=== PATIENT | female | born 1980 | race Caucasian/White ===

== ENCOUNTER 2016-06-05 10:23 | Emergency (ER) ==
[2016-06-05 10:27] VITALS: BP 139/101; TEMP 98.7; BMI 31.8
--- NOTE | 2016-06-05 10:41 | ED.PDOC ---
General ED Provider: Dr. AGGIE PATEL Chief Complaint: Abscess Stated Complaint: abscess Time Seen by Physician: 10:30 Mode of Arrival: Walk-In Information Source: Patient Exam Limitations: No limitations Primary Care Provider[facility] Nursing and Triage Documentation Reviewed and Agree: Yes Skin Complaint Exam - Skin/Soft Tissue Complaint/Exam Symptoms Are: Still present Timing: Constant Initial Severity: Moderate Current Severity: Moderate Character: Reports: Swelling, Raised, Painful Aggravating: Reports: None Alleviating: Reports: None Associated Signs and Symptoms: Denies: Fever, Chills, Itching, Drainage, Bruising, Tenderness, Red streaks, Joint swelling Related History: Reports: Similar episode Related Surgical History: Reports: None Recent Exposure to Others w/Similar Symptoms: No Skin Findings: Present: Pustules Differential Diagnoses: Abscess Review of Systems - Review Of Systems Constitutional: Reports: No symptoms Eyes: Reports: No symptoms Ears, Nose, Mouth, Throat: Reports: No symptoms Respiratory: Reports: No symptoms Cardiac: Reports: No symptoms GI: Reports: No symptoms : Reports: No symptoms Musculoskeletal: Reports: No symptoms Skin: Reports: Other (abscess see photos) Neurological: Reports: No symptoms Endocrine: Reports: No symptoms Hematologic/Lymphatic: Reports: No symptoms All Other Systems: Reviewed and Negative Past Medical History - Past Medical History Previously Healthy: Yes Endocrine: Reports: DM 1, Dyslipidemia Cardiovascular: Reports: None Respiratory: Reports: None Hematological: Reports: None Gastrointestinal: Reports: None Genitourinary: Reports: None Neuro/Psych: Reports: None Musculoskeletal: Reports: None Cancer: Reports: None Last Menstrual Period: due any time - Surgical History General Surgical History: Reports: None, (RECONSTRUCTIVE TO C- SECTION X1) - Family History Family History: Reports: None - Social History Smoking Status: Never smoker Hx Substance Use: No Alcohol Screening: Occasionally Physical Exam - Physical Exam Appearance: Well-appearing, No pain distress, Well-nourished Eyes: SCOT, EOMI, Conjunctiva clear ENT: Ears normal, Nose normal, Oropharynx normal Respiratory: Airway patent, Breath sounds clear, Breath sounds equal, Respirations nonlabored Cardiovascular: RRR, Pulses normal, No rub, No murmur GI/: Soft, Nontender, No masses, Bowel sounds normal, No Organomegaly Musculoskeletal: Normal strength, ROM intact, No edema, No calf tenderness Skin: Warm, Dry (abscess 2cm see photos) Neurological: Sensation intact, Motor intact, Reflexes intact, Cranial nerves intact, Alert, Oriented Psychiatric: Affect appropriate, Mood appropriate Critical Care Note - Critical Care Note Total Time (mins): 0 Course - Course Vital Signs: Temp Pulse Resp BP Pulse Ox 06/05/16 10:24 98.7 F 101 H 16 139/101 H 98 Departure - Departure Time of Disposition: 10:40 (with nba at bedside discussedI/D PT REFUSED SHE WAS ABLE TO UNDERSTAND THE PROCEDURE AND DECLINED ) Disposition: HOME SELF-CARE Discharge Problem: Abscess Instructions: Abscess (ED) Condition: Good Pt referred to PMD for follow-up: No Additional Instructions: Please call your Family Physician as soon as possible to schedule a follow-up appointment. Prescriptions: Sulfamethoxazole/Trimethoprim [Bactrim Ds Tablet] 1 each PO BID #14 tablet Allergies/Adverse Reactions: Allergies sunflowers seeds Allergy (Severe, Uncoded 06/05/16 10:27) difficulty breathing, Itching and burning all over. pt stated when she went to ER, was told lungs almost collapsed, Pt notified to get medical alert necklace Home Medications: Ambulatory Orders Sulfamethoxazole/Trimethoprim [Bactrim Ds Tablet] 1 each PO BID #14 tablet 06/05
== END 2016-06-05 11:10 | disposition home or self-care (01) ==
LOC: ED 10:23
DX: L02.91 Cutaneous abscess, unspecified (principal)
CPT/HCPCS: 99282

== ENCOUNTER 2016-06-13 12:59 | Emergency (ER) ==
[2016-06-13 13:05] VITALS: BP 118/80; TEMP 96.9; BMI 33.8
--- NOTE | 2016-06-13 14:16 | ED.PDOC ---
General ED Provider: Dr. AGGIE PATEL Chief Complaint: Rash Stated Complaint: rash Time Seen by Physician: 14:00 (see photos ) Mode of Arrival: Walk-In Information Source: Patient Exam Limitations: No limitations Primary Care Provider: RICKI ROY Nursing and Triage Documentation Reviewed and Agree: Yes (anna at bedside at all times ) Skin Complaint Exam - Skin/Soft Tissue Complaint/Exam Symptoms Are: Still present Timing: Constant Initial Severity: Mild Current Severity: Mild Character: Reports: Redness Aggravating: Reports: None Alleviating: Reports: None Associated Signs and Symptoms: Denies: Fever, Chills, Itching, Drainage, Bruising, Tenderness, Red streaks, Joint swelling Related History: Reports: Similar episode Skin Findings: Present: Pustules Differential Diagnoses: Abscess Review of Systems - Review Of Systems Constitutional: Reports: No symptoms Eyes: Reports: No symptoms Ears, Nose, Mouth, Throat: Reports: No symptoms Respiratory: Reports: No symptoms Cardiac: Reports: No symptoms GI: Reports: No symptoms : Reports: No symptoms Musculoskeletal: Reports: No symptoms Skin: Reports: Other (pustule) Neurological: Reports: No symptoms Endocrine: Reports: No symptoms Hematologic/Lymphatic: Reports: No symptoms All Other Systems: Reviewed and Negative Past Medical History - Past Medical History Previously Healthy: Yes Endocrine: Reports: DM 1, Dyslipidemia Cardiovascular: Reports: None Respiratory: Reports: None Hematological: Reports: None Gastrointestinal: Reports: None Genitourinary: Reports: None Neuro/Psych: Reports: None Musculoskeletal: Reports: None Cancer: Reports: None Last Menstrual Period: begining of last month - Surgical History General Surgical History: Reports: None, (RECONSTRUCTIVE TO C- SECTION X1) - Family History Family History: Reports: None - Social History Smoking Status: Never smoker Hx Substance Use: No Alcohol Screening: Occasionally - Immunizations Tetanus Shot up to Date: Yes Physical Exam - Physical Exam Appearance: Well-appearing, No pain distress, Well-nourished Eyes: SCOT, EOMI, Conjunctiva clear ENT: Ears normal, Nose normal, Oropharynx normal Respiratory: Airway patent, Breath sounds clear, Breath sounds equal, Respirations nonlabored Cardiovascular: RRR, Pulses normal, No rub, No murmur GI/: Soft, Nontender, No masses, Bowel sounds normal, No Organomegaly Musculoskeletal: Normal strength, ROM intact, No edema, No calf tenderness Skin: Warm, Dry (pustules 2 cm not pointing) Neurological: Sensation intact, Motor intact, Reflexes intact, Cranial nerves intact, Alert, Oriented Psychiatric: Affect appropriate, Mood appropriate Critical Care Note - Critical Care Note Total Time (mins): 0 Course - Course Vital Signs: Temp Pulse Resp BP Pulse Ox 06/13/16 12:59 96.9 F L 105 H 16 118/80 97 Departure - Departure Time of Disposition: 14:16 Disposition: HOME SELF-CARE Discharge Problem: Abscess Instructions: Abscess (ED) Condition: Good Pt referred to PMD for follow-up: Yes Additional Instructions: Please call your Family Physician as soon as possible to schedule a follow-up appointment. Allergies/Adverse Reactions: Allergies sunflowers seeds Allergy (Severe, Uncoded 06/13/16 13:05) difficulty breathing, Itching and burning all over. pt stated when she went to ER, was told lungs almost collapsed, Pt notified to get medical alert necklace Home Medications: Ambulatory Orders 1 [No Reported Medications] 06/13/16
== END 2016-06-13 14:25 | disposition home or self-care (01) ==
LOC: ED 12:59
DX: L02.91 Cutaneous abscess, unspecified (principal)
CPT/HCPCS: 99282

== ENCOUNTER 2016-07-28 17:04 | Inpatient (IN) ==
[2016-07-28] MEDS ORDERED: ZOFRAN 4 MG/2 ML IVP STA ×2 (17:17→18:45)
--- NOTE | 2016-07-28 17:17 | ED.PDOC ---
General ED Provider: Dr. ROWAN NIEVES JR Chief Complaint: Nausea/Vomiting Stated Complaint: patient states she ate supper last night and after started having vomiting. states only has abd. pain when she vomits. patient states she is diabetic. states that none of the medications prescribed "balances out my blood sugar like is suppose to be." states she is very thirsty and having difficulty walking. patient states she drank a regular soda because she thought she was dehydrated and was so thirsty. accucheck on arrival reads greater than 500.[ End ]99.5 117 28 98% 130/92 staph on and off 14 years initially cs scar then vaginal lately STAPH ON HER back Time Seen by Physician: 17:13 Mode of Arrival: Walk-In Information Source: Patient Exam Limitations: No limitations Primary Care Provider: RICKI ROY Nursing and Triage Documentation Reviewed and Agree: No Review of Systems - Review Of Systems Constitutional: Reports: Malaise, Weakness Eyes: Reports: No symptoms Ears, Nose, Mouth, Throat: Reports: No symptoms Respiratory: Reports: No symptoms Cardiac: Reports: No symptoms GI: Reports: Nausea, Vomiting : Reports: Frequency Musculoskeletal: Reports: No symptoms Skin: Reports: No symptoms Neurological: Reports: Weakness Endocrine: Reports: Increased hunger, Increased thirst, Increased urine Hematologic/Lymphatic: Reports: No symptoms All Other Systems: Other Past Medical History - Past Medical History Previously Healthy: Yes Endocrine: Reports: DM 1, Dyslipidemia Cardiovascular: Reports: None Respiratory: Reports: None Hematological: Reports: None Gastrointestinal: Reports: None Genitourinary: Reports: None Neuro/Psych: Reports: None Musculoskeletal: Reports: None Cancer: Reports: None Last Menstrual Period: june 2016 Other Pertinent Past Medical History: staph ABSCESSES - Surgical History General Surgical History: Reports: None, (RECONSTRUCTIVE TO C- SECTION X1) - Family History Family History: Reports: None - Social History Smoking Status: Never smoker Hx Substance Use: No Alcohol Screening: Occasionally Physical Exam - Physical Exam Appearance: Ill-appearing Ill-appearing: Moderate Pain Distress: Moderate Eyes: SCOT, EOMI, Conjunctiva clear ENT: Ears normal, Nose normal, Oropharynx normal Neck: Supple Respiratory: Airway patent, Breath sounds clear, Breath sounds equal, Respirations nonlabored Cardiovascular: RRR, Pulses normal, No rub, No murmur GI/: Soft, Nontender, No masses, Bowel sounds normal, No Organomegaly Musculoskeletal: Normal strength, ROM intact, No edema, No calf tenderness Skin: Warm, Dry, Normal color Neurological: Sensation intact, Motor intact, Reflexes intact, Cranial nerves intact, Alert, Oriented Psychiatric: Affect appropriate, Mood appropriate Interpretation - Radiology Interpretation Radiology Interpretation By: Radiologist Radiology Results: Positive Exam Interpreted: CT Scan (ABDOMEN WITH RENAL CHANGES) Critical Care Note - Critical Care Note Total Time (mins): 60 Course - Course Hematology/Chemistry: 07/28/16 17:40 07/28/16 17:40 Orders, Labs, Meds: Lab Review 07/28/16 07/28/16 17:14 17:40 WBC 20.08 H RBC 3.82 L Hgb 11.8 L Hct 33.8 L MCV 88.5 MCH 30.9 MCHC 34.9 RDW Coeff of Tawny 13.2 Plt Count 286 Immature Gran % (Auto) 0.9 Neut % (Auto) 95.2 Lymph % (Auto) 3.0 L [place] % (Auto) 0.2 Eos % (Auto) 0.0 Baso % (Auto) 0.7 Immature Gran # (Auto) 0.2 Neut # 19.1 H Lymph # 0.6 [place] # 0.1 L Eos # 0.0 Baso # 0.2 Puncture Site Lbrach O2 Saturation 97.0 ABG pH 7.469 H ABG pCO2 34.8 L ABG pO2 86.0 ABG HCO3 25.3 ABG Total CO2 26 ABG Base Excess 2 FiO2 % 21.0 Sodium 124 L Potassium 2.6 L* Chloride 83 L Carbon Dioxide 24 Anion Gap 19.6 BUN 18 Creatinine 1.75 H Estimated GFR (MDRD) 33.00 BUN/Creatinine Ratio 10.28 Glucose 725 H* Lactic Acid 34.7 H Calcium 9.2 Magnesium 2.0 Total Bilirubin 0.62 AST 13 L ALT 15 Alkaline Phosphatase 165 H Total Protein 6.7 Albumin 1.8 L Globulin 4.9 Albumin/Globulin Ratio 0.37 Amylase 5 L Lipase 13 Procalcitonin 5.50 Serum , Qual Negative Urine Color Yellow Urine Clarity Slightly Urine pH 5.5 Ur Specific [place] <=1.005 Urine Protein 1+ Urine Glucose (UA) 2+ Urine Ketones Negative Urine Blood 1+ Urine Nitrite Negative Urine Bilirubin Negative Urine Urobilinogen 0.2 Ur Leukocyte Esterase Negative Urine Microscopic WBC 2-5 Ur Squamous Epith Cells Not present Urine Test Negative Acetone, Qual None H. pylori IgG Antibody Negative Orders Category Date Time Status ADMIT PATIENT INPATIENT .TO [facility] (MONITORED BED) ADMISSION 07/28/16 18: 53 Active ABG DRAW REQUEST Stat CARDIO 07/28/16 17:40 Completed ACTIVITY .Early Mobilization for VTE Prevention CARE 07/28/16 18:53 Active BLOOD GLUCOSE MONITORING Q1HR CARE 07/28/16 17:23 Active BLOOD GLUCOSE MONITORING Q1HR CARE 07/28/16 18:53 Active GIVE HS SNACK 2100 CARE 07/28/16 18:56 Active INTAKE & OUTPUT Q8HR CARE 07/28/16 18:53 Active TELEMETRY MONITORING TELE CARE 07/28/16 18:56 Active VITAL SIGNS Q4HR CARE 07/28/16 18:53 Active ADA 1800 [place]. DIET DIETARY 07/28/16 Breakfast Ordered CLEAR LIQUID DIET DIETARY 07/28/16 Breakfast Ordered HS SNACK DIETARY 07/28/16 Dinner Ordered ED ACCUCHECK ASSESSMENT .ONCE EMERGENCY 07/28/16 17:09 Active ED IV/MEDIPORT/POWERPORT .ONCE EMERGENCY 07/28/16 17:18 Active ABG Stat LAB 07/28/16 17:14 Completed ACETONE, QUALITATIVE Stat LAB 07/28/16 17:40 Completed AMYLASE Stat LAB 07/28/16 17:40 Completed BLOOD CULTURE Stat LAB 07/28/16 17:40 Received CBC W/ AUTO DIFF DAILY@0600 LAB 07/29/16 06:00 Ordered CBC W/ AUTO DIFF DAILY@0600 LAB 07/30/16 06:00 Ordered CBC W/ AUTO DIFF DAILY@0600 LAB 07/31/16 06:00 Ordered CBC W/ AUTO DIFF DAILY@0600 LAB 08/01/16 06:00 Ordered CBC W/ AUTO DIFF DAILY@0600 LAB 08/02/16 06:00 Ordered CBC W/ AUTO DIFF DAILY@0600 LAB 08/03/16 06:00 Ordered CBC W/ AUTO DIFF DAILY@0600 LAB 08/04/16 06:00 Ordered CBC W/ AUTO DIFF DAILY@0600 LAB 08/05/16 06:00 Ordered CBC W/ AUTO DIFF DAILY@0600 LAB 08/06/16 06:00 Ordered CBC W/ AUTO DIFF DAILY@0600 LAB 08/07/16 06:00 Ordered CBC W/ AUTO DIFF DAILY@0600 LAB 08/08/16 06:00 Ordered CBC W/ AUTO DIFF DAILY@0600 LAB 08/09/16 06:00 Ordered CBC W/ AUTO DIFF DAILY@0600 LAB 08/10/16 06:00 Ordered CBC W/ AUTO DIFF DAILY@0600 LAB 08/11/16 06:00 Ordered CBC W/ AUTO DIFF DAILY@0600 LAB 08/12/16 06:00 Ordered CBC W/ AUTO DIFF DAILY@0600 LAB 08/13/16 06:00 Ordered CBC W/ AUTO DIFF DAILY@0600 LAB 08/14/16 06:00 Ordered CBC W/ AUTO DIFF DAILY@0600 LAB 08/15/16 06:00 Ordered CBC W/ AUTO DIFF DAILY@0600 LAB 08/16/16 06:00 Ordered CBC W/ AUTO DIFF DAILY@0600 LAB 08/17/16 06:00 Ordered CBC W/ AUTO DIFF Stat LAB 07/28/16 17:40 Completed COMPREHENSIVE METABOLIC PANEL DAILY@0600 LAB 07/29/16 06:00 Ordered COMPREHENSIVE METABOLIC PANEL DAILY@0600 LAB 07/30/16 06:00 Ordered COMPREHENSIVE METABOLIC PANEL DAILY@0600 LAB 07/31/16 06:00 Ordered COMPREHENSIVE METABOLIC PANEL DAILY@0600 LAB 08/01/16 06:00 Ordered COMPREHENSIVE METABOLIC PANEL DAILY@0600 LAB 08/02/16 06:00 Ordered COMPREHENSIVE METABOLIC PANEL DAILY@0600 LAB 08/03/16 06:00 Ordered COMPREHENSIVE METABOLIC PANEL DAILY@0600 LAB 08/04/16 06:00 Ordered COMPREHENSIVE METABOLIC PANEL DAILY@0600 LAB 08/05/16 06:00 Ordered COMPREHENSIVE METABOLIC PANEL DAILY@0600 LAB 08/06/16 06:00 Ordered COMPREHENSIVE METABOLIC PANEL DAILY@0600 LAB 08/07/16 06:00 Ordered COMPREHENSIVE METABOLIC PANEL DAILY@0600 LAB 08/08/16 06:00 Ordered COMPREHENSIVE METABOLIC PANEL DAILY@0600 LAB 08/09/16 06:00 Ordered COMPREHENSIVE METABOLIC PANEL DAILY@0600 LAB 08/10/16 06:00 Ordered COMPREHENSIVE METABOLIC PANEL DAILY@0600 LAB 08/11/16 06:00 Ordered COMPREHENSIVE METABOLIC PANEL DAILY@0600 LAB 08/12/16 06:00 Ordered COMPREHENSIVE METABOLIC PANEL DAILY@0600 LAB 08/13/16 06:00 Ordered COMPREHENSIVE METABOLIC PANEL DAILY@0600 LAB 08/14/16 06:00 Ordered COMPREHENSIVE METABOLIC PANEL DAILY@0600 LAB 08/15/16 06:00 Ordered COMPREHENSIVE METABOLIC PANEL DAILY@0600 LAB 08/16/16 06:00 Ordered COMPREHENSIVE METABOLIC PANEL DAILY@0600 LAB 08/17/16 06:00 Ordered COMPREHENSIVE METABOLIC PANEL Stat LAB 07/28/16 17:40 Completed H. PYLORI SCREEN Stat LAB 07/28/16 17:40 Completed LACTIC ACID Stat LAB 07/28/16 17:40 Completed LIPASE Stat LAB 07/28/16 17:40 Completed MAGNESIUM Stat LAB 07/28/16 17:40 Completed POTASSIUM Stat LAB 07/28/16 21:00 Ordered SERUM TEST [SERUM ] Stat LAB 07/28/16 17:40 Completed PROCALCITONIN Stat LAB 07/28/16 17:40 Completed URINALYSIS C & S IF INDICATED Stat LAB 07/28/16 17:40 Completed URINE Stat LAB 07/28/16 17:40 Completed 0.9 % Sodium Chloride [Saline Flush] MEDS 07/28/16 17:13 Ordered 1 syr IVF PRN PRN 0.9 % Sodium Chloride [Saline Flush] MEDS 07/28/16 17:18 Ordered 1 syr IVF PRN PRN 0.9 % Sodium Chloride [Sodium Chloride] 100 ml MEDS 07/28/16 19:15 Ordered Insulin Regular, Human [Humulin R] 100 unit IV 5 unit/hr Acetaminophen [Tylenol] MEDS 07/28/16 18:53 Ordered 650 mg PO Q4H PRN Insulin Regular, Human [Humulin R] MEDS 07/28/16 17:18 Discontinued 10 unit IVP ONCE STA Insulin Regular, Human [Humulin R] MEDS 07/28/16 19:15 Discontinued 10 unit IVP ONCE STA Insulin Regular, Human [Humulin R] MEDS 07/28/16 17:21 Ordered See Protocol SUBCUT PRN PRN Morphine Sulfate [Morphine 2 mg/ml Syringe] MEDS 07/28/16 19:17 Ordered 2 mg IM Q4H PRN Morphine Sulfate [Morphine 4 mg/ml Syringe] MEDS 07/28/16 18:45 Discontinued 4 mg IVP ONCE STA Ondansetron HCl/Pf [Zofran 4 mg/2 ml] MEDS 07/28/16 17:17 Discontinued 4 mg IVP ONCE STA Ondansetron HCl/Pf [Zofran 4 mg/2 ml] MEDS 07/28/16 18:45 Discontinued 4 mg IVP ONCE STA Ondansetron HCl/Pf [Zofran 4 mg/2 ml] MEDS 07/28/16 19:16 Ordered 4 mg IVP Q6H PRN Piperacillin Sodium/Tazobactam [Zosyn 3.375 gm] 3.375 MEDS 07/28/16 18:28 Active gm 0.9 % Sodium Chloride [Sodium Chloride] 100 ml IV ONCE Potassium Chloride in 0.9%NaCl [Sodium Chloride 0.9%- MEDS 07/28/16 18:32 Active KCl 40Meq] 1,000 ml IV 250 mls/hr Sodium Chloride 0.9% [Sodium Chloride] 1,000 ml MEDS 07/28/16 17:19 Discontinued IV BOLUS RESUSCITATION STATUS Routine OTHERS 07/28/16 18:[address] ABDOMEN/PELVIS WO CONTRAST Stat RADS 07/28/16 17:13 Completed Medications Generic Name Dose Route Start Last Admin Trade Name Freq PRN Reason Stop Dose Admin Acetaminophen 650 mg 07/28/16 18:53 Tylenol PO Q4H PRN Mild Pain Piperacillin Sod/Tazobactam 100 mls @ 100 mls/hr 07/28/16 18:28 07/28/16 18: 57 Sod 3.375 gm/ Sodium Chloride IV 07/28/16 19:27 100 mls/hr ONCE STA Administration Potassium Chloride/Sodium Chloride 1,000 mls @ 250 mls/hr 07/28/16 18:32 07/09 18:57 Sodium Chloride 0.9%-Kcl 40meq IV 07/28/16 22:31 250 mls/hr .Q4H STA Administration Insulin Human Regular 100 unit 100 mls @ 5 mls/hr 07/28/16 19:15 / Sodium Chloride IV .Q20H ALLYSON Protocol 5 UNIT/HR Insulin Human Regular 0 unit 07/28/16 17:21 Humulin R SUBCUT PRN PRN Hyperglycemica Protocol Morphine Sulfate 2 mg 07/28/16 19:17 Morphine 2 Mg/Ml Syringe IM Q4H PRN Severe Pain Ondansetron HCl 4 mg 07/28/16 19:16 Zofran 4 Mg/2 Ml IVP Q6H PRN Nausea / Vomiting Sodium Chloride 1 syr 07/28/16 17:13 07/28/16 17:37 Saline Flush IVF 1 syr PRN PRN Administration To flush IV Sodium Chloride 1 syr 07/28/16 17:18 Saline Flush IVF PRN PRN To flush IV Discontinued Medications Generic Name Dose Route Start Last Admin Trade Name Pretty PRN Reason Stop Dose Admin Sodium Chloride 1,000 mls @ 1,000 mls/hr 07/28/16 17:19 07/28/16 17:36 Sodium Chloride IV 07/28/16 18:18 1,000 mls/hr BOLUS STA Administration Insulin Human Regular 10 unit 07/28/16 17:18 07/28/16 17:33 Humulin R IVP 07/28/16 17:19 10 unit ONCE STA Administration Insulin Human Regular 10 unit 07/28/16 19:15 Humulin R IVP 07/28/16 19:16 ONCE STA Morphine Sulfate 4 mg 07/28/16 18:45 07/28/16 19:00 Morphine 4 Mg/Ml Syringe IVP 07/28/16 18:46 4 mg ONCE STA Administration Ondansetron HCl 4 mg 07/28/16 17:17 07/28/16 17:34 Zofran 4 Mg/2 Ml IVP 07/28/16 17:18 4 mg ONCE STA Administration Ondansetron HCl 4 mg 07/28/16 18:45 Zofran 4 Mg/2 Ml IVP 07/28/16 18:46 ONCE STA Vital Signs: Temp Pulse Resp BP Pulse Ox 07/28/16 17:05 99.5 F 117 H 28 H 130/92 H 98 Departure - Departure Time of Disposition: 19:12 Disposition: ADMITTED INPATIENT Discharge Problem: Nausea, Vomiting, Hyperglycemia due to type 1 diabetes mellitus Condition: Stable Pt referred to PMD for follow-up: No (HOSPITALIST) Allergies/Adverse Reactions: Allergies peanut Adverse Reaction (Verified 07/28/16 17:14) sunflowers seeds Allergy (Severe, Uncoded 06/13/16 13:05) difficulty breathing, Itching and burning all over. pt stated when she went to ER, was told lungs almost collapsed, Pt notified to get medical alert necklace Home Medications: Ambulatory Orders 1 [No Reported Medications] 06/13/16
[2016-07-28] MEDS ORDERED: HUMULIN R IVP STA ×2 (17:18→19:15)
[2016-07-28] MEDS ORDERED: SODIUM CHLORIDE 1,000 ML IV STA (17:19)
[2016-07-28 17:36] LABS: ABG BASE EXCESS 2 (-2.0-2.0); ABG HCO3 25.3 (22.0-26.0); ABG PCO2 34.8 mmHg (35-45); ABG PH 7.469 (7.35-7.45); ABG TCO2 26 (22.0-28.0)
[2016-07-28 17:51] LABS: BASOPHILS # (AUTO) 0.2 K/uL (0-0.2); BASOPHILS % (AUTO) 0.7 % (0.0-3.0); HEMATOCRIT 33.8 % (37.0-47.0); HEMOGLOBIN 11.8 g/dl (12.0-16.0); IMMATURE GRANULOCYTE % (AUTO) 0.9 % (0.0-5.0); LYMPHOCYTES # (AUTO) 0.6 K/uL (0.60-3.4); MEAN CORPUSCULAR HEMOGLOBIN 30.9 pg (27.0-31.0); MEAN CORPUSCULAR HGB CONC 34.9 (31.8-35.4); MEAN CORPUSCULAR VOLUME 88.5 fl (81.0-99.0); MONOCYTES # (AUTO) 0.1 K/uL (0.4-2.0); MONOCYTES % (AUTO) 0.2 (0-10); NEUTROPHILS # (AUTO) 19.1 K/ul (2.0-6.9); NEUTROPHILS % (AUTO) 95.2; PLATELET COUNT 286 10^3/uL (140-440); RED BLOOD COUNT 3.82 10^6/ul (4.20-5.40); WHITE BLOOD COUNT 20.08 K/ul (4.6-10.2)
[2016-07-28 17:57] LABS: URINE PREGNANCY INTERNAL QC INTERNAL QC VALID
[2016-07-28 17:59] LABS: H. PYLORI ANTIBODY NEGATIVE (NEGATIVE); H.PYLORI INTERNAL QC INTERNAL QC VALID
[2016-07-28 18:00] LABS: BILIRUBIN,URINE Negative (NEGATIVE); KETONES,URINE Negative (NEGATIVE); LEUKOCYTE ESTERASE ,URINE Negative (NEGATIVE); NITRITE,URINE Negative (NEGATIVE); PH,URINE 5.5 (5-9); PROTEIN,URINE 1+ (NEGATIVE); URINE, BLOOD 1+ (NEGATIVE)
[2016-07-28 18:01] LABS: ADD URINE MICROSCOPIC YES
[2016-07-28 18:04] LABS: SERUM PREGNANCY INTERNAL QC INTERNAL QC VALID
[2016-07-28 18:07] LABS: ALBUMIN 1.8 g/dL (3.4-5.0); ALBUMIN/GLOBULIN RATIO 0.37; ANION GAP 19.6; BILIRUBIN,TOTAL 0.62 mg/dL (0.00-1.20); BUN/CREATININE RATIO 10.28; CALCIUM 9.2 mg/dL (8.2-10.2); CREATININE 1.75 mg/dL (0.60-1.30); TOTAL PROTEIN 6.7 g/dL (6.4-8.2)
[2016-07-28 18:20] LABS: POTASSIUM 2.6 mmol/L (3.5-5.10)
[2016-07-28] MEDS ORDERED: ZOSYN 3.375 GM 3.375 GM in SODIUM CHLORIDE 100 ML IV STA (18:28)
[2016-07-28] MEDS ORDERED: SODIUM CHLORIDE 0.9%-KCL 40MEQ 1,000 ML IV STA (18:32)
[2016-07-28] MEDS ORDERED: MORPHINE 4 MG/ML SYRINGE IVP STA (18:45)
--- NOTE | 2016-07-28 18:59 | CT ---
EXAM: CT abdomen pelvis without contrast TECHNIQUE: Helical axial CT of the abdomen pelvis was performed without contrast with coronal and s agittal reconstructions. COMPARISON: None. HISTORY: Nausea vomiting with hyperglycemia FINDINGS: The bilateral kidneys are quite swollen an enlarged. There is quite a bit of perinephric stranding. There is no hydronephrosis. There are a few punctate calyceal stones on the left which are nonobstructive. Both ureters demonstrate normal course and caliber and the urinary bladder is normal. There is no free air free fluid or bowel wall thickening or edema or obstruction or ileus or patholo gic lymph nodes. The liver, spleen, pancreas, adrenal glands and lung bases are unremarkable. Ther e is a splenule seen associated with the spleen. There is no acute osseous abnormality. Uterus and adnexa are unremarkable. Appendix is normal. IMPRESSION: 1. Renal findings as described which may represent bilateral pyelonephritis verses acute renal fail ure. 2. Punctate left nonobstructive renal stones. Report called to Dr. White
[2016-07-28] MEDS ORDERED: HUMULIN R 100 UNIT in SODIUM CHLORIDE 100 ML IV SCH (19:15)
[2016-07-28] MEDS ORDERED: ZOFRAN 4 MG/2 ML IVP PRN (19:16)
[2016-07-28] MEDS ORDERED: MORPHINE 2 MG/ML SYRINGE IM PRN (19:17)
[2016-07-28 20:11] VITALS: BMI 31.5
[2016-07-28 21:20] LABS: POTASSIUM 2.5 mmol/L (3.5-5.10)
[2016-07-28] MEDS ORDERED: K-DUR PO STA (21:29)
[2016-07-28] MEDS: MORPHINE 2 MG/ML SYRINGE IVP PRN (21:37)
[2016-07-28] MEDS ORDERED: SODIUM CHLORIDE 1,000 ML IV SCH (23:45)
[2016-07-29] MEDS: MORPHINE 2 MG/ML SYRINGE IVP PRN ×2 (01:38→11:21)
[2016-07-29 04:20] LABS: HEMATOCRIT 33.1 % (37.0-47.0); HEMOGLOBIN 11.6 g/dl (12.0-16.0); MEAN CORPUSCULAR HEMOGLOBIN 30.7 pg (27.0-31.0); MEAN CORPUSCULAR VOLUME 87.6 fl (81.0-99.0); PLATELET COUNT 286 10^3/uL (140-440); RED BLOOD COUNT 3.78 10^6/ul (4.20-5.40)
[2016-07-29 04:35] LABS: ANISOCYTOSIS NOT PRESENT (NOT PRESENT)
[2016-07-29 04:39] LABS: ALBUMIN 1.5 g/dL (3.4-5.0); ALBUMIN/GLOBULIN RATIO 0.35; ANION GAP 13.9; BILIRUBIN,TOTAL 1.23 mg/dL (0.00-1.20); BUN/CREATININE RATIO 10.14; CALCIUM 8.3 mg/dL (8.2-10.2); CREATININE 1.38 mg/dL (0.60-1.30); POTASSIUM 2.9 mmol/L (3.5-5.10); TOTAL PROTEIN 5.8 g/dL (6.4-8.2)
[2016-07-29] MEDS: HUMULIN R SUBCUT PRN ×9 (04:56→22:19)
[2016-07-29 10:55] LABS: CHOLESTEROL 130 mg/dL (0-200); HDL CHOLESTEROL < 5 mg/dL (35-80); TRIGLYCERIDES 322 mg/dL (30-150); VLDL CHOLESTEROL 64 mg/dL (2-30)
[2016-07-29] MEDS: SODIUM CHLORIDE 0.9%-KCL 40MEQ 1,000 ML IV SCH (12:30)
--- NOTE | 2016-07-29 12:30 | PCM.PROG ---
Attending Provider: ATTENDING PROVIDER: Dr. HEVER MARR [facility] DATE OF SERVICE: 07/29/16 SUBJECTIVE: This 35 year old WHITE/ F was hospitalized 07/28/16 with hyponatremia and hyperglycemia. The patient had not been feeling good for a couple of days and was not eating, had vomiting with abdominal pain and states abdominal pain was only when she vomited. This morning the patient's nausea and vomiting have subsided. Potassium is low at 2.9. CT scan showed bilateral pyelonephritis. REVIEW OF SYSTEMS: CONSTITUTIONAL: No fever, no chills. ENDOCRINE: No weight loss or weight gain. HEENT: No sinus drainage, no sore throat. CVS: No angina symptoms. No CHF symptoms. No palpitations. No atypical chest pain for CAD. No shortness of breath. RESPIRATORY: No cough, no hemoptysis. GI: No melena. No abdominal pain. No nausea, no vomiting. : No hematuria. No polyuria. SKIN: No rash. No wounds. MUSCULOSKELETAL: No pain. BUTTON SPINDLER: No blackout, no dizziness. No headache. No double vision. PSYCHIATRIC: Not anxious; no depression. No suicidal thoughts. No homicidal thoughts. PHYSICAL EXAMINATION: GENERAL: Lying in bed in no distress. VITAL SIGNS: Temperature 97.8 F, Pulse 108, Respiratory Rate 18, BP 102/69, Pulse Ox 95% HEENT: Normocephalic, atraumatic. Mucosa is dry, pallor positive. NECK: No JVP, no carotid bruit. No lymphadenopathy. CARDIAC: S1, S2, no S3. No murmur, gallop or regurgitation. LUNGS: Clear to auscultation. ABDOMEN: Soft, non-tender. Bowel sounds active. No rigidity, guarding or CVA tenderness. EXTREMITIES: No clubbing, cyanosis or edema. NEUROLOGIC: Awake, alert and oriented x3. LYMPHATIC: No palpable lymph nodes SKIN: Not dry; intact. MUSCULOSKELETAL: No joint swelling. LAB REVIEW: 07/29/16 04:19 07/29/16 04:19 07/29/16 04:19: WBC 26.70 H D, RBC 3.78 L, Hgb 11.6 L, Hct 33.1 L, MCV 87.6, MCH 30.7, MCHC 35.0, RDW Coeff of [place]wn[place] 13.2, Plt Count 286, Neutrophils % (Manual ) 86.0 H, Lymphocytes % (Manual) 13.0, Monocytes % (Manual) 1.0, Sodium 130 L, Potassium 2.9 L, Chloride 95 L, Carbon Dioxide 24, Anion Gap 13.9, BUN 14, Creatinine 1.38 H, Estimated GFR (MDRD) 43.00, BUN/Creatinine Ratio 10.14, Glucose 203 H D, Calcium 8.3, Total Bilirubin 1.23 H, AST 17, ALT 13, Alkaline Phosphatase 161 H, Total Protein 5.8 L, Albumin 1.5 L, Globulin 4.3, Albumin/ Globulin Ratio 0.35 07/28/16 21:00: Potassium 2.5 L*, Glucose 321 H D ASSESSMENT: 1. Hyperosmolar hyperglycemia 2. Bilateral pyelonephritis per CT scan 3. Leukocytosis, rule out any occult infection 4. Gastroenteritis PLAN: 1. 40 mEq potassium 75 mL/hr 2. Zantac 150 mg b.i.d. 3. Start clear liquid diet 4. Zosyn 3.375 mg q.8hr 5. Ultrasound of gallbladder 6. A1C 7. Lipid profile Plan and coordination of the patient's care discussed in the presence of Automatic Head Sawyer and nurse. CONDITION: Stable SCRIBED BY: TAD MACEDO Tub Mender scribed while in presence of service performed by Dr. HEVER MARR, [facility] on 07/29/16 ([id number])
[2016-07-29] MEDS: ZOSYN 3.375 GM 3.375 GM in SODIUM CHLORIDE 100 ML IV SCH ×3 (12:49→23:07)
[2016-07-29] MEDS: ZANTAC PO SCH ×2 (12:51→17:43)
--- NOTE | 2016-07-29 13:41 | HP ---
DATE OF SERVICE: 07/28/16 CHIEF COMPLAINT: Nausea and vomiting. HISTORY OF PRESENT ILLNESS: This is a 35-year-old female, who has been a diabetic but has not been taking any medications for almost one year now because she could not afford the medications. The patient had a hospital visit last week for the cellulitis of her back for which the patient was started on Bactrim. She went home, started vomiting, unable to keep anything down, no bilious vomiting, whatever food material she ate she vomited. She had some diarrhea. She came to the emergency room and was seen by Dr. White. In the emergency room sugars were more than 700 ( 725), potassium 2.6, white count 20,000. CT abdomen and pelvis was done which showed bilateral swollen kidneys, questionable for pyelonephritis. Urine did show 2+ glucose, 1+ protein, 1+ blood, nitrites negative. Leukocyte esterase negative. Toxicology - acetone levels are negative. ABG showed pH 7.469, pc02 34.8. Dr. White did give 10 units of Insulin but sugars were still more than 500. At that time, the patient is admitted to the hospital for insulin drip and hyperosmolar and hyperglycemia. REVIEW OF SYSTEMS: CONSTITUTIONAL: Weakness, tiredness. No fever, no chills. HEENT: Normal. ENDOCRINE: No weight gain; no weight loss. CVS: No chest pain. No PND, no orthopnea. No shortness of breath. No PND, no orthopnea. RESPIRATORY: No cough, no congestion. No hemoptysis. GI: Nausea and vomiting. Diarrhea. Abdominal discomfort. No melena. Right-sided skin infection for which the patient is on Bactrim DS. : No hematuria. No polyuria. MUSCULOSKELETAL: No joint swelling. PSYCHIATRIC: Not anxious. No depression. No suicidal thoughts. No homicidal thoughts. SKIN: Intact, no open lesions. PAST MEDICAL HISTORY: 1. Diabetes mellitus, noncompliant PAST SURGICAL HISTORY: 1. PERSONAL HISTORY: Smokes. No alcohol. No ilicit drug use. FAMILY HISTORY: Significant for diabetes. MEDICATIONS: (HOME) 1. Bactrim ALLERGIES: PEANUT PHYSICAL EXAMINATION: V/S: BP 130/92, respiratory rate 28, heart rate 117, temperature 99.5. HEENT: Atraumatic, normocephalic. No scleral icterus. Pallor positive. Mucosa dry. NECK: Supple. No JVD, no bruit. No lymphadenopathy. No thyromegaly. HEART: S1, S2 normal. No murmur. No cyanosis or clubbing. No ascites. LUNGS: Decreased entry, clear to auscultation. No rales or rhonchi. ABDOMEN: Soft, discomfort all over. No rigidity or guarding. No CVA tenderness. EXTREMITIES: No cyanosis, clubbing or pedal edema. MUSCULOSKELETAL: Grossly intact. NEUROLOGIC: The patient is awake and alert. SKIN: Intact and dry. LABS: White count 20.08, hemoglobin 11.8, hematocrit 33.8, platelet count 286. Sodium 124, potassium 2.5, chloride 83, bicarb 24, BUN 18, creatinine 1.75, glucose 725. ABG 7.46, pc02 34.8, p02 86. ASSESSMENT: 1. HYPEROSMOLAR/HYPERGLYCEMIA 2. HYPONATREMIA SECONDARY TO #1 3. LEUKOCYTOSIS MOST LIKELY FROM BILATERAL PYELONEPHRITIS PER CT SCAN. URINE IS NORMAL I ASSUME SECONDARY TO THE PATIENT BEING TEMPORARILY TREATED WITH BACTRIM FOR SKIN INFECTION 4. HYPOKALEMIA 5. ANEMIA PLAN: 1. Admit the patient to Critical Care. 2. Stop Insulin drip when conservative blood sugar less than 200. 3. Accu-Cheks every hour and p.o. 4. NPO 5. Continue Normal Saline with 40 mEq potassium. 6. Zofran for nausea and vomiting. The patient has Piperacillin/Tazobactam in the emergency room. TIME SPENT: More than 70 minutes critical care time. PAUL
--- NOTE | 2016-07-29 13:52 | US ---
Exam: Limited mason-scale and color Doppler ultrasonographic evaluation of the abdomen. Comparison: CT performed on the same day. Reason for exam: Nausea and pain. FINDINGS: The liver measures approximately 16.03 cm in length with normal appearing echotexture. T here is a normal antegrade portal venous flow. No intrahepatic ductal dilatation or perihepatic franci e fluid. The gallbladder measures approximately 9.19 x 3.93 x 4.10 cm without evidence of intraluminal sludge , stone or polyp. The gallbladder wall measures 0.34 cm. The common bile duct measures 0.45 cm. There is no evidence of intraluminal stone or polyp. The pancreas is not well seen secondary to overlying bowel gas. The right kidney measures approximately 13.97 x 7.25 x 6.36 cm. Without evidence of hydronephrosis o r nephrolithiasis. Impression: No acute imaging findings are seen on the limited ultrasonographic evaluation of the rig ht upper quadrant.
[2016-07-29] MEDS: LANTUS SUBCUT SCH (20:27)
[2016-07-30] MEDS: TYLENOL PO PRN ×3 (00:36→20:40)
[2016-07-30] MEDS: SODIUM CHLORIDE 0.9%-KCL 40MEQ 1,000 ML IV SCH ×2 (04:03→21:38)
[2016-07-30 04:51] LABS: HEMATOCRIT 27.5 % (37.0-47.0); HEMOGLOBIN 9.6 g/dl (12.0-16.0); MEAN CORPUSCULAR HEMOGLOBIN 30.8 pg (27.0-31.0); MEAN CORPUSCULAR HGB CONC 34.9 (31.8-35.4); MEAN CORPUSCULAR VOLUME 88.1 fl (81.0-99.0); PLATELET COUNT 268 10^3/uL (140-440); RED BLOOD COUNT 3.12 10^6/ul (4.20-5.40)
[2016-07-30 04:56] LABS: ANISOCYTOSIS NOT PRESENT (NOT PRESENT)
[2016-07-30 05:07] LABS: ALBUMIN 1.3 g/dL (3.4-5.0); ALBUMIN/GLOBULIN RATIO 0.33; ANION GAP 12.8; BILIRUBIN,TOTAL 1.2 mg/dL (0.00-1.20); BUN/CREATININE RATIO 11.88; CREATININE 1.43 mg/dL (0.60-1.30); POTASSIUM 2.8 mmol/L (3.5-5.10); TOTAL PROTEIN 5.3 g/dL (6.4-8.2)
[2016-07-30] MEDS: ZOSYN 3.375 GM 3.375 GM in SODIUM CHLORIDE 100 ML IV SCH ×4 (05:56→23:39)
[2016-07-30] MEDS: ZANTAC PO SCH ×2 (05:56→17:51)
[2016-07-30] MEDS ORDERED: K-DUR PO STA (08:51)
[2016-07-30] MEDS: HUMULIN R SUBCUT PRN ×4 (10:41→22:28)
--- NOTE | 2016-07-30 11:33 | PCM.PROG ---
Attending Provider: ATTENDING PROVIDER[facility] DATE OF SERVICE: 07/30/16 SUBJECTIVE: This 35 year old WHITE/ F was hospitalized 07/28/16 with hyponatremia. The patient was begun on 20 units of Lantus and blood sugars are better. The patient complains of back pain. Blood cultures grew gram negative rods. No fever, no chills. No nausea or vomiting. Cholesterol panel showed triglycerides 322; total cholesterol 180. The patient was started on Lipitor. REVIEW OF SYSTEMS: CONSTITUTIONAL: No fever, no chills. ENDOCRINE: No weight loss or weight gain. HEENT: No sinus drainage, no sore throat. CVS: No angina symptoms. No CHF symptoms. No palpitations. No atypical chest pain for CAD. No shortness of breath. RESPIRATORY: No cough, no hemoptysis. GI: No melena. No abdominal pain. No nausea, no vomiting. No diarrhea. : No hematuria. No polyuria. SKIN: No rash. No wounds. MUSCULOSKELETAL: No pain. EDITOR BOOK: No blackout, no dizziness. No headache. No double vision. PSYCHIATRIC: Not anxious; no depression. No suicidal thoughts. No homicidal thoughts. PHYSICAL EXAMINATION: GENERAL: Lying in bed in no distress. VITAL SIGNS: Temperature 97.2 F, Pulse 73, Respiratory Rate 18, BP 90/58, Pulse Ox 94% HEENT: Normocephalic, atraumatic. Mucosa is dry, pallor positive. No icterus. NECK: No JVP, no carotid bruit. No lymphadenopathy. CARDIAC: S1, S2, no S3. No murmur, gallop or regurgitation. LUNGS: Clear to auscultation. ABDOMEN: Soft, non-tender. No abdominal discomfort. Bowel sounds active. Positive CVA tenderness bilaterally. EXTREMITIES: No clubbing, cyanosis or edema. NEUROLOGIC: Awake, alert and oriented x3. LYMPHATIC: No palpable lymph nodes SKIN: Not dry. Intact. MUSCULOSKELETAL: No joint swelling. LAB REVIEW: 07/30/16 04:46 07/30/16 04:46 07/30/16 04:46: WBC 15.70 H D, RBC 3.12 L, Hgb 9.6 L, Hct 27.5 L, MCV 88.1, MCH 30.8, MCHC 34.9, RDW Coeff of Tawny 13.6, Plt Count 268, Neutrophils % (Manual) 85.0 H, Lymphocytes % (Manual) 12.0, Monocytes % (Manual) 3.0, Sodium 138, Potassium 2.8 L, Chloride 103, Carbon Dioxide 25, Anion Gap 12.8, BUN 17, Creatinine 1.43 H, Estimated GFR (MDRD) 42.00, BUN/Creatinine Ratio 11.88, Glucose 141 H, Calcium 8.0 L, Total Bilirubin 1.20, AST 23, ALT 12, Alkaline Phosphatase 130 H D, Total Protein 5.3 L, Albumin 1.3 L, Globulin 4.0, Albumin/ Globulin Ratio 0.33 07/29/16 04:15: Hemoglobin A1c 11.0 H D, Triglycerides 322 H, Cholesterol 130, LDL Cholesterol, Calc 61, VLDL Cholesterol 64 H, HDL Cholesterol < 5 L, Cholesterol/HDL Ratio 26.0 H ASSESSMENT: 1. Type 1 diabetes mellitus with HB A1C of 11.6 2. Bacteremia with gram negative rods in blood PLAN: 1. Lipitor 20 mg p.o. daily 2. Activity as tolerated 3. Accu-checks q.4hr with coverage 4. Magnesium level and potassium level check by 2 p.m. Plan and coordination of the patient's care discussed in the presence of Geophysical Observer and nurse. CONDITION: Stable SCRIBED BY: Rianna VITAL scribed while in presence of service performed by Dr. HEVER [facility] on 07/30/16 (1525)
[2016-07-30 14:23] LABS: MAGNESIUM 1.6 mg/dL (1.7-2.2); POTASSIUM 3.2 mmol/L (3.5-5.10)
[2016-07-30] MEDS: MAG-OX PO SCH (20:40)
[2016-07-30] MEDS: LIPITOR PO SCH (20:40)
[2016-07-30] MEDS: LANTUS SUBCUT SCH (20:41)
[2016-07-31 04:41] LABS: BASOPHILS # (AUTO) 0.1 K/uL (0-0.2); BASOPHILS % (AUTO) 0.4 % (0.0-3.0); EOSINOPHILS # (AUTO) 0.1 K/ul (0.0-0.7); EOSINOPHILS % (AUTO) 0.7 % (0.0-7.0); HEMATOCRIT 27.6 % (37.0-47.0); HEMOGLOBIN 9.4 g/dl (12.0-16.0); IMMATURE GRANULOCYTE % (AUTO) 1.9 % (0.0-5.0); LYMPHOCYTES # (AUTO) 1.3 K/uL (0.60-3.4); LYMPHOCYTES % (AUTO) 10.3 (10.0-50.0); MEAN CORPUSCULAR HEMOGLOBIN 30.5 pg (27.0-31.0); MEAN CORPUSCULAR HGB CONC 34.1 (31.8-35.4); MEAN CORPUSCULAR VOLUME 89.6 fl (81.0-99.0); MONOCYTES # (AUTO) 0.9 K/uL (0.4-2.0); MONOCYTES % (AUTO) 7.2 (0-10); NEUTROPHILS % (AUTO) 79.5; PLATELET COUNT 306 10^3/uL (140-440); RED BLOOD COUNT 3.08 10^6/ul (4.20-5.40)
[2016-07-31 05:04] LABS: ALBUMIN 1.3 g/dL (3.4-5.0); ALBUMIN/GLOBULIN RATIO 0.31; ANION GAP 11.4; BILIRUBIN,TOTAL 0.86 mg/dL (0.00-1.20); BUN/CREATININE RATIO 12.12; CREATININE 1.32 mg/dL (0.60-1.30); POTASSIUM 3.4 mmol/L (3.5-5.10); TOTAL PROTEIN 5.5 g/dL (6.4-8.2)
[2016-07-31] MEDS: ZANTAC PO SCH ×2 (05:56→17:06)
[2016-07-31] MEDS: HUMULIN R SUBCUT PRN ×4 (05:56→18:35)
[2016-07-31] MEDS: ZOSYN 3.375 GM 3.375 GM in SODIUM CHLORIDE 100 ML IV SCH ×4 (05:56→23:19)
[2016-07-31] MEDS: TYLENOL PO PRN ×2 (05:56→11:11)
[2016-07-31] MEDS ORDERED: K-DUR PO STA (08:31)
[2016-07-31] MEDS: MAG-OX PO SCH ×2 (08:55→21:55)
[2016-07-31] MEDS: SODIUM CHLORIDE 0.9%-KCL 40MEQ 1,000 ML IV SCH (14:19)
[2016-07-31] MEDS: LANTUS SUBCUT SCH (21:56)
[2016-07-31] MEDS: LIPITOR PO SCH (21:56)
[2016-08-01] MEDS: ZOSYN 3.375 GM 3.375 GM in SODIUM CHLORIDE 100 ML IV SCH ×3 (05:21→18:05)
[2016-08-01 05:25] LABS: BASOPHILS % (AUTO) 0.3 % (0.0-3.0); EOSINOPHILS # (AUTO) 0.1 K/ul (0.0-0.7); EOSINOPHILS % (AUTO) 0.6 % (0.0-7.0); HEMATOCRIT 30.9 % (37.0-47.0); HEMOGLOBIN 10.3 g/dl (12.0-16.0); IMMATURE GRANULOCYTE % (AUTO) 1.1 % (0.0-5.0); LYMPHOCYTES # (AUTO) 1.4 K/uL (0.60-3.4); LYMPHOCYTES % (AUTO) 12.1 (10.0-50.0); MEAN CORPUSCULAR HEMOGLOBIN 30.4 pg (27.0-31.0); MEAN CORPUSCULAR HGB CONC 33.3 (31.8-35.4); MEAN CORPUSCULAR VOLUME 91.2 fl (81.0-99.0); MONOCYTES % (AUTO) 8.3 (0-10); NEUTROPHILS # (AUTO) 9.1 K/ul (2.0-6.9); NEUTROPHILS % (AUTO) 77.6; PLATELET COUNT 395 10^3/uL (140-440); RED BLOOD COUNT 3.39 10^6/ul (4.20-5.40); WHITE BLOOD COUNT 11.73 K/ul (4.6-10.2)
[2016-08-01] MEDS: ZANTAC PO SCH ×2 (05:42→18:04)
[2016-08-01 05:53] LABS: ALBUMIN 1.6 g/dL (3.4-5.0); ALBUMIN/GLOBULIN RATIO 0.34; ANION GAP 13.4; BILIRUBIN,TOTAL 0.88 mg/dL (0.00-1.20); BUN/CREATININE RATIO 9.6; CALCIUM 8.8 mg/dL (8.2-10.2); CREATININE 1.25 mg/dL (0.60-1.30); POTASSIUM 3.4 mmol/L (3.5-5.10); TOTAL PROTEIN 6.3 g/dL (6.4-8.2)
[2016-08-01] MEDS: MAG-OX PO SCH ×2 (09:48→21:34)
[2016-08-01] MEDS: CELEXA PO SCH (09:48)
[2016-08-01] MEDS: HUMULIN R SUBCUT PRN ×3 (11:28→22:13)
[2016-08-01] MEDS: MOTRIN PO PRN (16:01)
[2016-08-01] MEDS: LIPITOR PO SCH (21:34)
[2016-08-01] MEDS: LANTUS SUBCUT SCH (21:35)
[2016-08-02] MEDS: ZOSYN 3.375 GM 3.375 GM in SODIUM CHLORIDE 100 ML IV SCH ×5 (00:02→23:10)
[2016-08-02] MEDS: MOTRIN PO PRN (02:58)
[2016-08-02 05:40] LABS: BASOPHILS # (AUTO) 0.1 K/uL (0-0.2); BASOPHILS % (AUTO) 0.4 % (0.0-3.0); EOSINOPHILS # (AUTO) 0.1 K/ul (0.0-0.7); EOSINOPHILS % (AUTO) 0.5 % (0.0-7.0); HEMATOCRIT 28.4 % (37.0-47.0); HEMOGLOBIN 9.5 g/dl (12.0-16.0); IMMATURE GRANULOCYTE % (AUTO) 0.8 % (0.0-5.0); LYMPHOCYTES # (AUTO) 1.2 K/uL (0.60-3.4); LYMPHOCYTES % (AUTO) 8.4 (10.0-50.0); MEAN CORPUSCULAR HEMOGLOBIN 30.5 pg (27.0-31.0); MEAN CORPUSCULAR HGB CONC 33.5 (31.8-35.4); MEAN CORPUSCULAR VOLUME 91.3 fl (81.0-99.0); MONOCYTES % (AUTO) 7.4 (0-10); NEUTROPHILS # (AUTO) 11.6 K/ul (2.0-6.9); NEUTROPHILS % (AUTO) 82.5; PLATELET COUNT 422 10^3/uL (140-440); RED BLOOD COUNT 3.11 10^6/ul (4.20-5.40)
[2016-08-02 06:02] LABS: ALBUMIN 1.7 g/dL (3.4-5.0); ALBUMIN/GLOBULIN RATIO 0.38; ANION GAP 12.4; BILIRUBIN,TOTAL 0.69 mg/dL (0.00-1.20); BUN/CREATININE RATIO 10.47; CALCIUM 8.7 mg/dL (8.2-10.2); CREATININE 1.05 mg/dL (0.60-1.30); POTASSIUM 3.4 mmol/L (3.5-5.10); TOTAL PROTEIN 6.2 g/dL (6.4-8.2)
[2016-08-02] MEDS: ZANTAC PO SCH ×2 (06:16→16:11)
[2016-08-02] MEDS: MAG-OX PO SCH ×2 (08:35→20:38)
[2016-08-02] MEDS: CELEXA PO SCH (08:35)
[2016-08-02] MEDS: HUMULIN R SUBCUT PRN ×2 (17:05→21:22)
[2016-08-02] MEDS: LANTUS SUBCUT SCH (20:36)
[2016-08-02] MEDS: LIPITOR PO SCH (20:38)
[2016-08-03 05:10] LABS: BASOPHILS % (AUTO) 0.2 % (0.0-3.0); EOSINOPHILS # (AUTO) 0.1 K/ul (0.0-0.7); EOSINOPHILS % (AUTO) 0.6 % (0.0-7.0); HEMATOCRIT 30.3 % (37.0-47.0); IMMATURE GRANULOCYTE % (AUTO) 0.8 % (0.0-5.0); LYMPHOCYTES # (AUTO) 1.7 K/uL (0.60-3.4); LYMPHOCYTES % (AUTO) 13.3 (10.0-50.0); MEAN CORPUSCULAR HEMOGLOBIN 30.2 pg (27.0-31.0); MEAN CORPUSCULAR VOLUME 91.5 fl (81.0-99.0); MONOCYTES # (AUTO) 0.8 K/uL (0.4-2.0); MONOCYTES % (AUTO) 6.4 (0-10); NEUTROPHILS # (AUTO) 9.9 K/ul (2.0-6.9); NEUTROPHILS % (AUTO) 78.7; PLATELET COUNT 506 10^3/uL (140-440); RED BLOOD COUNT 3.31 10^6/ul (4.20-5.40); WHITE BLOOD COUNT 12.57 K/ul (4.6-10.2)
[2016-08-03] MEDS: ZANTAC PO SCH (05:38)
[2016-08-03] MEDS: ZOSYN 3.375 GM 3.375 GM in SODIUM CHLORIDE 100 ML IV SCH ×2 (05:38→11:24)
[2016-08-03 05:42] LABS: ALBUMIN 1.8 g/dL (3.4-5.0); ALBUMIN/GLOBULIN RATIO 0.38; ANION GAP 13.9; BILIRUBIN,TOTAL 0.6 mg/dL (0.00-1.20); BUN/CREATININE RATIO 12.06; CALCIUM 8.9 mg/dL (8.2-10.2); CREATININE 1.16 mg/dL (0.60-1.30); POTASSIUM 3.9 mmol/L (3.5-5.10); TOTAL PROTEIN 6.5 g/dL (6.4-8.2)
[2016-08-03] MEDS: MAG-OX PO SCH (08:28)
[2016-08-03] MEDS: CELEXA PO SCH (08:28)
[2016-08-03 10:13] VITALS: BP 109/74; TEMP 98.3
[2016-08-03] MEDS: HUMULIN R SUBCUT PRN (10:59)
--- NOTE | 2016-08-04 15:32 | PN ---
DATE OF SERVICE: 08/02/16 SUBJECTIVE: The patient was admitted with the hyperosmolar hyperglycemia and bacteremia pyelonephritis. The patient grew E-coli ESBL positive. After the insulin drip the patient's sugars have been good. No fevers and no chills. REVIEW OF SYSTEMS: CONSTITUTIONAL: No fever, no chills. HEENT: Normal. ENDOCRINE: No weight gain, no weight loss. CVS: No angina symptoms. No CHF symptoms. No palpitations. No atypical chest pain for CAD. No shortness of breath. No PND, no orthopnea. RESPIRATORY: No cough, no hemoptysis. GI: No nausea, no vomiting. No abdominal pain. : No hematuria. No polyuria. MUSCULOSKELETAL:. No joint swelling. PSYCHIATRIC: Not anxious. No depression. No suicidal thoughts. No homicidal thoughts. SKIN: Intact. No rash. PHYSICAL EXAMINATION: V/S: Blood pressure 119/83, respiratory rate 20, heart rate 85, temperature 97.5. HEENT: Normocephalic, atraumatic. Mucosa dry. Pallor positive. No icterus. NECK: Supple. No JVD, no carotid bruit. No lymphadenopathy. LUNGS:Decreased and clear to auscultation. No rales or rhonchi. HEART: S1, S2 normal. No S3. No murmur, gallop or regurgitation. ABDOMEN: Soft, nontender. Bowel sounds active. No rigidity. No rebound or guarding. No CVA tenderness. EXTREMITIES: No clubbing, cyanosis or pedal edema. MUSCULOSKELETAL: No joint swelling. NEUROLOGIC: Awake, alert, oriented times three. No focal deficit. LYMPHATIC: No lymph nodes palpable. SKIN: Intact. LABS: WBC 14.10, hgb 9.5, hct 28.4, plt count 422, sodium 142, potassium 3.4, chloride 103, bicarb 31, BUN 11, creatinine 1.05 ASSESSMENT: 1. Bacteremia, e-coli ESBL positive 2. Bilateral pyelonephritis which is resolved 3. Status post hyperosmolar hyperglycemia 4. Diabetes with HbA1c 11.0 5. Non-compliant PLAN: 1. Continue the antibiotic Zosyn 2. Accu-checks with coverage 3. Activity as tolerated Will follow the patient in daily rounds. TIME SPENT: More than 30 minutes MTDD
--- NOTE | 2016-08-06 09:54 | DS ---
DATE OF SERVICE: 08/03/16 FINAL DIAGNOSIS: 1. Status post hyperosmolar/hyperglycemia 2. Bilateral pyelonephritis per CAT scan 3. Bacteremia, ESBL e-coli positive 4. Diabetes Mellitus A1c 11.0 5. Non-compliance 6. Obesity 7. Depression 8. Dyslipidemia DISCHARGE INSTRUCTIONS: Discharge the patient home. Followup in the [facility] in three days with me. MEDICATIONS AT DISCHARGE/ NEW PRESCRIPTIONS: Lantus 20 units HS Citalopram 20 PO daily Cipro 250mg PO twice a day Lipitor 20mg PO daily DIET INSTRUCTIONS: 1,800 ADA diet ACTIVITY: As much as tolerated SMOKING: Non-Smoker DISEASE SPECIFIC EDUCATION: Diabetes DKA been discussed Bacteremia and risk of the endocarditis been discussed if antibiotics are not taken properly HOSPITAL COURSE: Teresa Khan who is a 35 year old female non-compliant with her medication came to the hospital on 07/28/16 with nausea, vomiting, abdominal pain. The patient was seen a could of days before for the abdominal pain and UTI was treated with Bactrim. On 07/28/16 the patient's potassium was 2.6, sodium 124, glucose 725. The patient was admitted with the Hyperosmolar/ Hyperglycemia and Hyponatremia and hypokalemia. The patient was started on the insulin drip, A1c was 11.0, potassium was corrected with 2.6, 2.5, and 2.9 and magnesium was checked as potassium was constantly low which was 1.6 which was replaced. Urine was negative but the blood cultures came positive for the bacteremia and ESBL for e-coli. Zosyn continued and Vancomycin stopped. IV fluids and Zofran helped her not to vomited. Gradually was started on the diet. Watch Mechanic came and talked to the patient. Insulin drip was stopped and started on the Lantus 20 units at HS. Sugars were controlled with that. In review of the patient considered to be very non-compliant by the therapeutic case manager and the nurses the patient had extensive stay and wanted to give at least a 7 days of the IV antibiotics before she goes, in review of the bacteremia. The patient was afebrile, up and about walking and being discharged today with specific instructions to have a followup in the [facility] and do the blood cultures. TIME SPENT: More than 55 minutes today. PAUL
--- NOTE | 2016-08-06 15:22 | PN ---
DATE OF SERVICE: 08/01/16 SUBJECTIVE: The patient was admitted with the hyperosmolar/hyperglycemia, bilateral pyelonephritis and bacteremia with gram negative rods ESBL e-coli positive. The patient is afebrile and she has been better, off of the insulin drip and doing good. Still a lot f issues with the compliance and she doesn't want to learn about the diabetes. REVIEW OF SYSTEMS: CONSTITUTIONAL: No fever, no chills. HEENT: Normal. ENDOCRINE: No weight gain, no weight loss. CVS: No angina symptoms. No CHF symptoms. No palpitations. No atypical chest pain for CAD. No shortness of breath. No PND, no orthopnea. RESPIRATORY: No cough, no hemoptysis. GI: No nausea, no vomiting. No abdominal pain. : No hematuria. No polyuria. MUSCULOSKELETAL:. No joint swelling. PSYCHIATRIC: Not anxious. No depression. No suicidal thoughts. No homicidal thoughts. SKIN: Intact. No rash. PHYSICAL EXAMINATION: V/S: Blood pressure 116/70, respiratory rate 16, heart rate 88, temperature 98.1. HEENT: Normocephalic, atraumatic. Mucosa dry. Pallor positive. No icterus. NECK: Supple. No JVD, no carotid bruit. No lymphadenopathy. LUNGS: Clear to auscultation. No rales or rhonchi. HEART: S1, S2 normal. No S3. No murmur, gallop or regurgitation. ABDOMEN: Soft, nontender. Bowel sounds active. No rigidity. No rebound or guarding. No CVA tenderness. EXTREMITIES: No clubbing, cyanosis or pedal edema. MUSCULOSKELETAL: No joint swelling. NEUROLOGIC: Awake, alert, oriented times three. No focal deficit. LYMPHATIC: No lymph nodes palpable. SKIN: Intact. LABS: WBC 11.73, hgb 10.3, hct 35, plt count 495, sodium 139, potassium 3.4, chloride 101, bicarb 28, BUN 12, creatinine 1.25 ASSESSMENT: 1. Status post hyperosmolar/hyperglycemia 2. Status post severe hypokalemia/ hypomagnesia 3. Bilateral pyelonephritis 4. Bacteremia 5. Non-compliance of medication 6. Anemia PLAN: 1. Continue Zosyn 2. Continue Lantus 20 units at bedtime 3. Accu-checks AC and HS 4. Out of bed activity as much as tolerated. Will follow the patient in daily rounds. TIME SPENT: More than 30 minutes MTDD
== END 2016-08-03 13:07 | disposition home or self-care (01) | DRG 638 ==
LOC: ED 17:04 → SCU 19:35
PROVIDERS: ADMIT Emergency Medicine; ATTEND Emergency Medicine
DX: E10.65 Type 1 diabetes mellitus with hyperglycemia (principal); N10 Acute pyelonephritis; R78.81 Bacteremia; E87.6 Hypokalemia; E83.42 Hypomagnesemia; R11.2 Nausea with vomiting, unspecified; R63.1 Polydipsia; R35.0 Frequency of micturition; R10.9 Unspecified abdominal pain; D72.829 Elevated white blood cell count, unspecified; K52.9 Noninfective gastroenteritis and colitis, unspecified; E66.9 Obesity, unspecified; F32.9 Major depressive disorder, single episode, unspecified; E78.5 Hyperlipidemia, unspecified; B96.20 Unspecified Escherichia coli [E. coli] as the cause of diseases classified elsewhere; Z16.12 Extended spectrum beta lactamase (ESBL) resistance; Z91.14 Patient's other noncompliance with medication regimen
CPT/HCPCS: 36415; 80053; 80061; 81001; 81025; 82009; 82150; 82803; 82947; 82962; 83036; 83605; 83690; 83735; 84132; 84145; 84703; 85007; 85025; 86677; 87040; 87070; 87081; 87186; 93005; 93010; 96361; 96365; 96375; 96376; 97802; 99284

== ENCOUNTER 2017-02-24 17:17 | Outpatient (CLI) | END 2017-02-24 17:18 | disposition home or self-care (01) | LOC: LAB 17:17 | PROVIDERS: ATTEND Nurse Practitioner Family | DX: L02.01 Cutaneous abscess of face (principal) | CPT/HCPCS: 87070; 87186 ==

== ENCOUNTER 2017-02-27 12:15 | Outpatient (CLI) | END 2017-02-27 12:16 | disposition home or self-care (01) | LOC: LAB 12:15 | PROVIDERS: ATTEND Nurse Practitioner Family | DX: E11.9 Type 2 diabetes mellitus without complications (principal); Z00.00 Encounter for general adult medical examination without abnormal findings | CPT/HCPCS: 36415; 80053; 80061; 83036; 84443; 85025 ==

== ENCOUNTER 2018-10-01 12:47 | Outpatient (CLI) ==
[2018-10-01 07:34] VITALS: BMI 27.4
== END 2018-10-01 13:11 | disposition short-term general hospital (02) ==
LOC: AMBL 12:47
PROVIDERS: ATTEND Internal Medicine
DX: K13.0 Diseases of lips (principal); J34.0 Abscess, furuncle and carbuncle of nose

== ENCOUNTER 2021-03-23 09:08 | Inpatient (IN) ==
--- NOTE | 2021-03-23 10:10 | ED.PDOC ---
General ED Provider: Dr. COOKIE PHILLIP Chief Complaint: Extremity Pain/Injury Stated Complaint: Pain and swelling Rt posterior arm above elbow. States PCP evaluated dx cellulitis on prescribed Keflex Time Seen by Provider: 03/23/21 09:50 Mode of Arrival: Walk-In Information Source: Patient Exam Limitations: No limitations Primary Care Provider: KELSEY PERKINS Nursing and Triage Documentation Reviewed and Agree: Yes Does patient meet sepsis criteria?: No System Inflammatory Response Syndrome: Not Applicable Sepsis Protocol: For patient's 13 years and over: Temp is 96.8 and below OR 101 and greater Pulse >90 BPM Resp >20/minute Acutely Altered Mental Status Are patient's symptoms suggestive of a new infection, such as: -Pneumonia -Skin, Soft Tissue -Endocarditis -UTI -Bone, Joint Infection -Implantable Device -Acute Abdominal Infection -Wound Infection -Meningitis -Blood Stream Catheter Infection -Unknown Skin Complaint Exam Skin/Soft Tissue Complaint/Exam Onset/Duration: Rt Arm- onset 1 week ago, Symptoms Are: Still present and Worse Timing: Constant Initial Severity: Mild Current Severity: Moderate Location: Posterior arm Character: Reports Redness, Swelling and Painful Aggravating: Reports Touch Alleviating: Reports None Associated Signs and Symptoms: Reports Fever, Tenderness and Red streaks Related History: Reports Similar episode Related Surgical History: Reports None Recent Exposure to Others w/Similar Symptoms: No Skin Findings: Present Erythema and Dry scaly skin Joint Tenderness Present: Yes Differential Diagnoses: Cellulitis Skin Rash/Itching Complaint/Exam Onset/Duration: 4-5 DAYS Initial Severity: Moderate Current Severity: Moderate Location: [id number] RT ARM Potential Exposures: Reports Unknown Prior Treatment: KEFLEX Alleviating: Reports None Associated Signs and Symptoms: Denies Difficulty breathing, Fever or Chills Skin Findings: Present Dry scaly skin Differential Diagnoses: Other (CELLULITIS) Review of Systems Review Of Systems Constitutional: Reports No symptoms Eyes: Reports No symptoms Ears, Nose, Mouth, Throat: Reports No symptoms Respiratory: Reports Cough Cardiac: Reports No symptoms GI: Reports No symptoms : Reports No symptoms Musculoskeletal: Reports No symptoms Skin: Reports No symptoms Neurological: Reports Anxiety Endocrine: Reports No symptoms All Other Systems: Reviewed and Negative [facility] Medical History (Updated 03/23/21 @ 14:42 by KANE KIRBY RN) Diabetes mellitus Hypertension Right thumb amputee Vaginal infection Family History (Updated 03/23/21 @ 14:42 by KANE KIRBY RN) SISTER Diabetes Grandfather/Grandmother Diabetes FATHER Alcohol abuse Mother Hypertension Social History (Updated 03/23/21 @ 14:42 by KANE KIRBY RN) Smoking and tobacco status: Never smoker Alcohol intake: never Substance use type: amphetamines and methamphetamine Surgical History History of section Female Reproductive History Menstrual Hx Hysterectomy: No Hx Tubal Ligation: No Physical Exam Physical Exam Appearance: Reports Well-appearing Ill-appearing: Mild Pain Distress: Mild Eyes: Reports SCOT, EOMI, Conjunctiva clear, Conjunctiva pale and Right pupil size (PERL_A) ENT: Reports Ears normal, Oropharynx normal and TMs Occluded Neck: Supple Respiratory: Reports Airway patent, Breath sounds diminished and Wheezes Cardiovascular: Reports RRR and No murmur GI/: Reports Soft, Nontender and No masses Musculoskeletal: Reports Normal strength, ROM intact, No calf tenderness and Edema (rT ARM) Skin: Reports Warm, Dry and Normal color Neurological: Reports Sensation intact, Motor intact, Reflexes intact, Cranial nerves intact, Alert and Oriented Psychiatric: Reports Affect appropriate and Mood appropriate Critical Care Note Critical Care Note Total Critical Care Time (mins): 0 Course Course Hematology/Chemistry: 03/23/21 10:25 03/23/21 17:40 Orders, Labs, Meds: Lab Review 03/23/21 03/23/21 03/23/21 10:15 10:15 10:15 WBC RBC Hgb Hct MCV MCH MCHC RDW Coeff of [place]wn[place] Plt Count Immature Gran % (Auto) Neut % (Auto) Lymph % (Auto) [place] % (Auto) Eos % (Auto) Baso % (Auto) Neut # (Auto) Lymph # (Auto) [place] # (Auto) Eos # (Auto) Baso # (Auto) Immature Gran # (Auto) ESR Sodium Potassium Chloride Carbon Dioxide Anion Gap BUN Creatinine Estimated GFR (MDRD) BUN/Creatinine Ratio Glucose Lactic Acid Calcium Magnesium Total Bilirubin AST ALT Alkaline Phosphatase Total Creatine Kinase Total Protein Albumin Globulin Albumin/Globulin Ratio Urine Color Yellow Urine Clarity Slightly Urine pH 5.5 Ur Specific [place] 1.025 Urine Protein 1+ H Urine Glucose (UA) 2+ H Urine Ketones 4+ Urine Blood Trace-lysed Urine Nitrite Positive H Urine Bilirubin Negative Urine Urobilinogen 1.0 H Ur Leukocyte Esterase Negative Urine Microscopic RBC 2-5 Urine Microscopic WBC Tntc Ur Squamous Epith Cells 5-10 Urine Bacteria 4+ Urine Test Negative Urine Opiates Screen Negative Ur Oxycodone Screen Negative Urine Methadone Screen Negative Ur Propoxyphene Screen Negative Ur Barbiturates Screen Negative U Tricyclic Antidepress Negative Ur Phencyclidine Scrn Negative Ur Amphetamine Screen Positive H U Methamphetamines Scrn Positive H U Benzodiazepines Scrn Negative Urine Cocaine Screen Negative U Cannabinoids Screen Negative SARS CoV-2 RNA Rapid CIRILO 03/23/21 03/23/21 03/23/21 10:25 10:25 10:25 WBC 8.30 RBC 4.56 Hgb 14.0 Hct 41.5 MCV 91.0 MCH 30.7 MCHC 33.7 RDW Coeff of [place] 12.0 Plt Count 446 H Immature Gran % (Auto) 0.2 Neut % (Auto) 71.8 Lymph % (Auto) 20.2 [place] % (Auto) 7.0 Eos % (Auto) 0.4 Baso % (Auto) 0.4 Neut # (Auto) 6.0 Lymph # (Auto) 1.7 [place] # (Auto) 0.6 Eos # (Auto) 0.0 Baso # (Auto) 0.0 Immature Gran # (Auto) 0.0 ESR 80 H Sodium 136.9 Potassium 2.99 L Chloride 95.3 L Carbon Dioxide 35.3 H Anion Gap 9.29 BUN 8.3 Creatinine 0.47 L Estimated GFR (MDRD) 146.00 BUN/Creatinine Ratio 17.65 Glucose 156.1 H Lactic Acid Calcium 9.67 Magnesium 1.75 Total Bilirubin 1.08 AST 23.7 ALT 16.0 Alkaline Phosphatase 140.0 H Total Creatine Kinase < 20.0 L Total Protein 7.87 Albumin 3.87 Globulin 4.00 Albumin/Globulin Ratio 0.96 Urine Color Urine Clarity Urine pH Ur Specific [place] Urine Protein Urine Glucose (UA) Urine Ketones Urine Blood Urine Nitrite Urine Bilirubin Urine Urobilinogen Ur Leukocyte Esterase Urine Microscopic RBC Urine Microscopic WBC Ur Squamous Epith Cells Urine Bacteria Urine Test Urine Opiates Screen Ur Oxycodone Screen Urine Methadone Screen Ur Propoxyphene Screen Ur Barbiturates Screen U Tricyclic Antidepress Ur Phencyclidine Scrn Ur Amphetamine Screen U Methamphetamines Scrn U Benzodiazepines Scrn Urine Cocaine Screen U Cannabinoids Screen SARS CoV-2 RNA Rapid CIRILO 03/23/21 03/23/21 11:46 13:15 WBC RBC Hgb Hct MCV MCH MCHC RDW Coeff of [place] Plt Count Immature Gran % (Auto) Neut % (Auto) Lymph % (Auto) [place] % (Auto) Eos % (Auto) Baso % (Auto) Neut # (Auto) Lymph # (Auto) [place] # (Auto) Eos # (Auto) Baso # (Auto) Immature Gran # (Auto) ESR Sodium Potassium Chloride Carbon Dioxide Anion Gap BUN Creatinine Estimated GFR (MDRD) BUN/Creatinine Ratio Glucose Lactic Acid 0.88 Calcium Magnesium Total Bilirubin AST ALT Alkaline Phosphatase Total Creatine Kinase Total Protein Albumin Globulin Albumin/Globulin Ratio Urine Color Urine Clarity Urine pH Ur Specific [place] Urine Protein Urine Glucose (UA) Urine Ketones Urine Blood Urine Nitrite Urine Bilirubin Urine Urobilinogen Ur Leukocyte Esterase Urine Microscopic RBC Urine Microscopic WBC Ur Squamous Epith Cells Urine Bacteria Urine Test Urine Opiates Screen Ur Oxycodone Screen Urine Methadone Screen Ur Propoxyphene Screen Ur Barbiturates Screen U Tricyclic Antidepress Ur Phencyclidine Scrn Ur Amphetamine Screen U Methamphetamines Scrn U Benzodiazepines Scrn Urine Cocaine Screen U Cannabinoids Screen SARS CoV-2 RNA Rapid CIRILO Negative Orders Category Date Time Status [facility] ADMISSION 03/23/21 14:01 Active ACTIVITY .Up ad Claire CARE 03/23/21 14:05 Active BLOOD GLUCOSE MONITORING (MED/SURG) 0630,1100,1700,2100 CARE 03/23/21 14:06 Active GIVE HS SNACK 2100 CARE 03/23/21 14:05 Active INTAKE & OUTPUT Q8HR CARE 03/23/21 14:04 Active REMINDER: Give Insulin if Needed 0630,1100,1700,2100 CARE 03/23/21 14:04 Active TELEMETRY MONITORING TELE CARE 03/23/21 14:02 Active VITAL SIGNS Q4HR CARE 03/23/21 14:04 Completed ADA 1800 PEARL. DIET DIETARY 03/23/21 Dinner Ordered HS SNACK DIETARY 03/23/21 Dinner Ordered IV [ED IV/MEDIPORT/POWERPORT] .ONCE EMERGENCY 03/23/21 11:34 Active BASIC METABOLIC PANEL DAILY@0600 LAB 03/24/21 06:00 Ordered BASIC METABOLIC PANEL DAILY@0600 LAB 03/25/21 06:00 Ordered BLOOD CULTURE (ED ONLY) Stat LAB 03/23/21 11:46 Received CBC W/ AUTO DIFF DAILY@0600 LAB 03/24/21 06:00 Ordered CBC W/ AUTO DIFF DAILY@0600 LAB 03/25/21 06:00 Ordered CBC W/ AUTO DIFF Stat LAB 03/23/21 10:25 Completed CMP [COMPREHENSIVE METABOLIC PANEL] Stat LAB 03/23/21 10:25 Completed CPK [CREATINE KINASE] Stat LAB 03/23/21 10:25 Completed ESR Stat LAB 03/23/21 10:25 Completed LACTIC ACID Stat LAB 03/23/21 11:46 Completed MAGNESIUM Stat LAB 03/23/21 10:25 Completed UA [URINALYSIS C & S IF INDICATED] Stat LAB 03/23/21 10:15 Completed URINE DRUG SCREEN (RAPID FOR ED) [DRUG SCREEN, URINE, LAB 03/23/21 10:15 Completed RAPID] Stat URINE Stat LAB 03/23/21 10:15 Completed 0.9 % Sodium Chloride [Saline Flush] MEDS 03/23/21 11:33 Active 1 syr IVF PRN PRN Acetaminophen [Tylenol] MEDS 03/23/21 14:04 Active 650 mg PO Q4H PRN Ceftriaxone 1 gm Vial [Rocephin 1 gm Vial] MEDS 03/23/21 11:48 Discontinued 1 gm IM ONCE STA Clindamycin Phosphate/D5w [Cleocin 300 mg/50 ml D5w] MEDS 03/23/21 18:00 Active 300 mg in 50 ml IV Q6HR Clindamycin Phosphate/D5w [Cleocin 600 mg/50 ml D5w] MEDS 03/23/21 11:37 Discontinued 600 mg in 50 ml IV ONCE Hydrocodone Bit/Acetaminophen [[place] 5-325] MEDS 03/23/21 14:04 Active 1 tab PO Q6H PRN Lidocaine HCl/Pf [Lidocaine HCl 1% Sdv] MEDS 03/23/21 11:48 Discontinued 2.1 ml IM ONCE STA Ondansetron HCl/Pf [Zofran 4 mg/2 ml] MEDS 03/23/21 13:36 Discontinued 4 mg IVP ONCE STA Ondansetron HCl/Pf [Zofran 4 mg/2 ml] MEDS 03/23/21 14:04 Active 4 mg IVP Q6H PRN Potassium Chloride [Potassium Chloride 20 Meq/100 ml MEDS 03/23/21 11:35 Discontinued Premix] 20 meq in 100 ml IV ONCE Potassium Chloride in 0.9%NaCl [Sodium Chloride 0.9%- MEDS 03/23/21 14:30 Active KCl 20 Meq] 1,000 ml IV 70 mls/hr Sodium Chloride 0.9% [Sodium Chloride] 1,000 ml MEDS 03/23/21 11:33 Discontinued IV BOLUS RESUSCITATION STATUS Routine OTHERS 03/23/21 14:[address] ELBOW RIGHT WO CONTRAST Stat RADS 03/23/21 10:[address] HUMERUS RIGHT W/O CONTRAST Stat RADS 03/23/21 10:15 Completed Medications Generic Name Dose Route Start Last Admin Trade Name Freq PRN Reason Stop Dose Admin Acetaminophen 650 mg 03/23/21 14:04 Acetaminophen 325 Mg Tablet PO Q4H PRN Fever >101 Hydrocodone Bitart/Acetaminophen 1 tab 03/23/21 14:04 Hydrocodone Bit/Acetaminophen 5/325 Mg Tablet PO Q6H PRN Pain Potassium Chloride/Sodium Chloride 1,000 mls @ 70 mls/hr 03/23/21 14:30 03/23/21 17:07 Sodium Chloride 0.9%-Kcl 20 Meq IV 70 mls/hr .[id number] ALLYSON Administration Clindamycin Phosphate 300 mg in 50 mls @ 75 mls/hr 03/23/21 18:00 03/23/21 17:06 Cleocin 300 Mg/50 Ml D5w IV 03/26/21 17:59 75 mls/hr Q6HR [place]YSON Administration Ondansetron HCl 4 mg 03/23/21 14:04 Ondansetron Hcl/Pf 4 Mg/2 Ml Sdv IVP Q6H PRN Nausea / Vomiting Sodium Chloride 1 syr 03/23/21 11:33 03/23/21 12:39 0.9% Sodium Chloride 10 Ml Disp.Syrin IVF 1 syr PRN PRN Administration To flush IV Discontinued Medications Generic Name Dose Route Start Last Admin Trade Name Freq PRN Reason Stop Dose Admin Ceftriaxone Sodium 1 gm 03/23/21 11:48 03/23/21 12:40 Ceftriaxone 1 Gm Vial 1 Gm Vial IM 03/23/21 11:49 1 gm ONCE STA Administration Enoxaparin Sodium 40 mg 03/23/21 14:14 03/23/21 15:51 Enoxaparin Sodium 40 Mg/0.4 Ml Syr SUBCUT 03/23/21 14:15 40 mg ONCE STA Administration Sodium Chloride 1,000 mls @ 1,000 mls/hr 03/23/21 11:33 03/23/21 12:39 Sodium Chloride IV 03/23/21 12:32 1,000 mls/hr BOLUS STA Administration Potassium Chloride 20 meq in 100 mls @ 50 mls/hr 03/23/21 11:35 03/23/21 14:05 Potassium Chloride 20 Meq/100 Ml Premix IV 03/23/21 13:34 50 mls/hr ONCE STA Administration Clindamycin Phosphate 600 mg in 50 mls @ 75 mls/hr 03/23/21 11:37 03/23/21 12:40 Cleocin 600 Mg/50 Ml D5w IV 03/23/21 12:16 75 mls/hr ONCE ONE Administration Lidocaine HCl 2.1 ml 03/23/21 11:48 03/23/21 12:39 Lidocaine Hcl/Pf 1% 5 Ml Vial IM 03/23/21 11:49 2.1 ml ONCE STA Administration Ondansetron HCl 4 mg 03/23/21 13:36 03/23/21 13:41 Ondansetron Hcl/Pf 4 Mg/2 Ml Sdv IVP 03/23/21 13:37 4 mg ONCE STA Administration Vital Signs: Temp Pulse Resp BP Pulse Ox 03/23/21 09:09 97.3 F L 108 H 16 104/73 96 Discharge Plan Discharge Patient Disposition: ADMITTED INPATIENT Discharge Problem: Cellulitis of arm, right, Type II diabetes mellitus ED Provider: COOKIE PHILLIP Condition: Good Physician Progress Note: []
[2021-03-23 10:26] LABS: BILIRUBIN,URINE Negative (NEGATIVE); CLARITY,URINE Slightly (CLEAR); COLOR,URINE Yellow (YELLOW); GLUCOSE, URINE (UA) 2+ (NEGATIVE); KETONES,URINE 4+ (NEGATIVE); LEUKOCYTE ESTERASE ,URINE Negative (NEGATIVE); NITRITE,URINE Positive (NEGATIVE); PH,URINE 5.5 (5-9); PROTEIN,URINE 1+ (NEGATIVE); URINE, BLOOD Trace-lysed (NEGATIVE)
[2021-03-23 10:30] LABS: BASOPHILS % (AUTO) 0.4 % (0.0-3.0); EOSINOPHILS % (AUTO) 0.4 % (0.0-7.0); HEMATOCRIT 41.5 % (37.0-47.0); IMMATURE GRANULOCYTE % (AUTO) 0.2 % (0.0-5.0); LYMPHOCYTES # (AUTO) 1.7 K/uL (0.60-3.4); LYMPHOCYTES % (AUTO) 20.2 (10.0-50.0); MEAN CORPUSCULAR HEMOGLOBIN 30.7 pg (27.0-31.0); MEAN CORPUSCULAR HGB CONC 33.7 (31.8-35.4); MONOCYTES # (AUTO) 0.6 K/uL (0.4-2.0); NEUTROPHILS % (AUTO) 71.8 % (42.2-75.2); PLATELET COUNT 446 10^3/uL (140-440); RED BLOOD COUNT 4.56 10^6/ul (4.20-5.40)
[2021-03-23 10:38] LABS: URINE PREGNANCY TEST NEGATIVE (NEGATIVE)
[2021-03-23 10:40] LABS: BACTERIA,URINE 4+ (NOT PRESENT); URINE WBC, MICROSCOPIC TNTC (0-2)
[2021-03-23 10:43] LABS: AMPHETAMINE SCREEN,URINE POSITIVE (NEGATIVE); METHAMPHETAMINES SCREEN,URINE POSITIVE (NEGATIVE)
[2021-03-23 10:44] LABS: BARBITURATE SCREEN,URINE NEGATIVE (NEGATIVE); BENZODIAZEPINES SCREEN,URINE NEGATIVE (NEGATIVE); CANNABINOID SCREEN,URINE NEGATIVE (NEGATIVE); COCAIN SCREEN,URINE NEGATIVE (NEGATIVE); METHADONE URINE SCREEN NEGATIVE (NEGATIVE); OPIATE SCREEN,URINE NEGATIVE (NEGATIVE); OXYCODONE URINE SCREEN NEGATIVE (NEGATIVE); PHENCYCLIDINE SCREEN,URINE NEGATIVE (NEGATIVE); PROPOXYPHENE URINE SCREEN NEGATIVE (NEGATIVE); TRICYCLIC ANTIDEPRESSANTS URIN NEGATIVE (NEGATIVE)
[2021-03-23 10:52] LABS: ALBUMIN 3.87 g/dL (3.5-5.0); ASPARTATE AMINO TRANSFERASE 23.7 U/L (14-36); BILIRUBIN,TOTAL 1.08 mg/dL (0.2-1.3); BLOOD UREA NITROGEN 8.3 mg/dL (7-17); CALCIUM 9.67 mg/dL (8.4-10.2); CARBON DIOXIDE 35.3 mmol/L (22-30.0); CHLORIDE 95.3 mmol/L (98-107); CREATININE 0.47 mg/dL (0.60-1.30); GLUCOSE 156.1 mg/dL (74-106); POTASSIUM 2.99 mmol/L (3.5-5.1); SODIUM 136.9 mmol/L (134.5-145); TOTAL PROTEIN 7.87 g/dL (6.3-8.2)
[2021-03-23 10:53] LABS: CREATINE KINASE < 20.0 U/L (30-135)
[2021-03-23 11:15] LABS: ERYTHROCYTE SEDIMENTATION RATE 80 mm/hr (0-20)
--- NOTE | 2021-03-23 11:23 | CT ---
EXAM: CT right elbow with contrast HISTORY: swelling distal arm, posteriorly) COMPARISON: None. TECHNIQUE: Axial imaging of the right elbow was performed without contrast. Sagittal and coronal re- formations were performed. FINDINGS: No acute fracture or dislocation. The osseous cortex is preserved. Mild soft tissue swelling overlying the olecranon process and proximal ulna. No well-defined fluid c ollection is appreciated. No evidence of avascular necrosis. No significant joint effusion is prese nt. IMPRESSION: Findings suggestive of cellulitis overlying the proximal ulna. No drainable fluid colle ction is present. All CT scans are performed using dose optimization techniques as appropriate to the performed exam an d include at least one of the following: Automated exposure control, adjustment of the mA and/or kV according t o size, and the use of iterative reconstruction technique.
--- NOTE | 2021-03-23 11:29 | CT ---
EXAM: CT right humerus without contrast HISTORY: Right arm pain and swelling COMPARISON: None. TECHNIQUE: Axial imaging of the right humerus was performed without contrast. Sagittal and coronal r e-formations were performed. FINDINGS: The femoral head is normally located in the osseous acetabulum. No acute fracture or disl ocation. Mild soft tissue stranding is seen posterior to the triceps, beginning at the level of the mid one third humerus and extending distal to the level of the elbow. No well-defined fluid collecti on is appreciated. The joint spaces are maintained. No significant joint effusion is present. Right axillary lymph nodes measure up to 0.8 cm in short axis. The visualized right lung is clear. IMPRESSION: #1. Soft tissue swelling present posterior to the triceps muscle, beginning at approximate the level of the mid one third humerus and extending inferiorly to the level of the elbow. There is no draina ble fluid collection. #2. No acute osseous abnormality. All CT scans are performed using dose optimization techniques as appropriate to the performed exam an d include at least one of the following: Automated exposure control, adjustment of the mA and/or kV according t o size, and the use of iterative reconstruction technique.
[2021-03-23] MEDS ORDERED: SODIUM CHLORIDE 1,000 ML IV STA (11:33)
[2021-03-23] MEDS ORDERED: POTASSIUM CHLORIDE 20 MEQ/100 ML PREMIX 20 MEQ/100 ML BAG IV STA (11:35)
[2021-03-23] MEDS ORDERED: CLEOCIN 600 MG/50 ML D5W 600 MG/50 ML BAG IV ONE (11:37)
[2021-03-23] MEDS ORDERED: ROCEPHIN 1 GM VIAL IM STA (11:48)
[2021-03-23] MEDS ORDERED: LIDOCAINE HCL 1% SDV IM STA (11:48)
[2021-03-23] MEDS ORDERED: ZOFRAN 4 MG/2 ML IVP STA (13:36)
--- NOTE | 2021-03-23 13:50 | ED.PDOC ---
General ED Provider: Dr. COOKIE PHILLIP Chief Complaint: Extremity Pain/Injury Stated Complaint: CC: Pain Rt arm and elbow, has cellulitis and tx by PCP 7 days ago , given Rx Keflex. States problem not really improved and seems like getting worse, especially when moving elbow. Time Seen by Provider: 03/23/21 09:50 Mode of Arrival: Walk-In Information Source: Patient Exam Limitations: No limitations Primary Care Provider: KELSEY PERKINS Nursing and Triage Documentation Reviewed and Agree: No Does patient meet sepsis criteria?: No System Inflammatory Response Syndrome: Not Applicable Sepsis Protocol: For patient's 13 years and over: Temp is 96.8 and below OR 101 and greater Pulse >90 BPM Resp >20/minute Acutely Altered Mental Status Are patient's symptoms suggestive of a new infection, such as: -Pneumonia -Skin, Soft Tissue -Endocarditis -UTI -Bone, Joint Infection -Implantable Device -Acute Abdominal Infection -Wound Infection -Meningitis -Blood Stream Catheter Infection -Unknown Musculoskeletal Complaint Exam Elbow Pain Complaint/Exam Mechanism of Injury: Reports No known trauma Onset/Duration: 7 day history or pain and swelling of rt arm (distal 1/3 to the elbow Symptoms Are: Worse Onset of Pain: Reports Days Initial Severity: Moderate Current Severity: Moderate Location: Reports Diffuse Character: Reports Dull, Aching and Stiffness Alleviating: Reports Immobilization (reducing mobility) Aggravating: Reports Movement and Twisting Associated Signs and Symptoms: Reports Swelling, Redness, Bruising, Numbness and Tingling Related History: Reports Similar episode Related Surgical History: Reports None Elbow Findings: Present Swelling, Erythema and Warmth Tenderness: Present Olecranon and Radial Head Limited Range of Motion: Present Extension Differential Diagnoses: Cellulitis Upper Extremity Complaint/Exam Location of Pain: Reports Right, Arm and Elbow Mechanism of Injury: Reports No known trauma Onset/Duration: 3-days Review of Systems Review Of Systems Constitutional: Reports No symptoms Eyes: Reports No symptoms Ears, Nose, Mouth, Throat: Reports No symptoms Respiratory: Reports No symptoms Cardiac: Reports No symptoms GI: Reports No symptoms, Poor appetite and Poor fluid intake : Reports No symptoms Musculoskeletal: Reports Joint pain, Joint swelling and Muscle pain Neurological: Reports No symptoms Endocrine: Reports No symptoms Hematologic/Lymphatic: Reports No symptoms All Other Systems: Reviewed and Negative [facility] Medical History (Updated 03/23/21 @ 14:42 by KANE KIRBY RN) Diabetes mellitus Hypertension Right thumb amputee Vaginal infection Family History (Updated 03/23/21 @ 14:42 by KANE KIRBY RN) SISTER Diabetes Grandfather/Grandmother Diabetes FATHER Alcohol abuse Mother Hypertension Social History (Updated 03/23/21 @ 14:42 by KANE KIRBY RN) Smoking and tobacco status: Never smoker Alcohol intake: never Substance use type: amphetamines and methamphetamine Surgical History History of section Female Reproductive History Menstrual Hx Hysterectomy: No Hx Tubal Ligation: No Physical Exam Physical Exam Appearance: Reports Ill-appearing and Thin Ill-appearing: Mild Pain Distress: Moderate Eyes: Reports SCOT, EOMI, Conjunctiva clear and Left pupil size ENT: Reports Ears normal, Nose normal, Oropharynx normal, TMs Occluded, Rhinorrhea and Epistaxis Neck: Supple Respiratory: Reports Airway patent Cardiovascular: Reports RRR, Pulses normal, No rub and No murmur GI/: Reports Soft, Nontender and No masses Musculoskeletal: Reports Normal strength, ROM intact and Edema Skin: Reports Warm, Dry and Normal color Neurological: Reports Sensation intact, Motor intact, Reflexes intact, Cranial nerves intact, Alert and Oriented Psychiatric: Reports Affect appropriate, Mood appropriate and Anxious Critical Care Note Critical Care Note Total Critical Care Time (mins): 30 Course Course Hematology/Chemistry: 03/23/21 10:25 03/23/21 10:25 Orders, Labs, Meds: Lab Review 03/23/21 03/23/21 03/23/21 10:15 10:15 10:15 WBC RBC Hgb Hct MCV MCH MCHC RDW Coeff of Tawny Plt Count Immature Gran % (Auto) Neut % (Auto) Lymph % (Auto) Henry % (Auto) Eos % (Auto) Baso % (Auto) Neut # (Auto) Lymph # (Auto) Henry # (Auto) Eos # (Auto) Baso # (Auto) Immature Gran # (Auto) ESR Sodium Potassium Chloride Carbon Dioxide Anion Gap BUN Creatinine Estimated GFR (MDRD) BUN/Creatinine Ratio Glucose Lactic Acid Calcium Magnesium Total Bilirubin AST ALT Alkaline Phosphatase Total Creatine Kinase Total Protein Albumin Globulin Albumin/Globulin Ratio Urine Color Yellow Urine Clarity Slightly Urine pH 5.5 Ur Specific [place] 1.025 Urine Protein 1+ H Urine Glucose (UA) 2+ H Urine Ketones 4+ Urine Blood Trace-lysed Urine Nitrite Positive H Urine Bilirubin Negative Urine Urobilinogen 1.0 H Ur Leukocyte Esterase Negative Urine Microscopic RBC 2-5 Urine Microscopic WBC Tntc Ur Squamous Epith Cells 5-10 Urine Bacteria 4+ Urine Test Negative Urine Opiates Screen Negative Ur Oxycodone Screen Negative Urine Methadone Screen Negative Ur Propoxyphene Screen Negative Ur Barbiturates Screen Negative U Tricyclic Antidepress Negative Ur Phencyclidine Scrn Negative Ur Amphetamine Screen Positive H U Methamphetamines Scrn Positive H U Benzodiazepines Scrn Negative Urine Cocaine Screen Negative U Cannabinoids Screen Negative SARS CoV-2 RNA Rapid CIRILO 03/23/21 03/23/21 03/23/21 10:25 10:25 10:25 WBC 8.30 RBC 4.56 Hgb 14.0 Hct 41.5 MCV 91.0 MCH 30.7 MCHC 33.7 RDW Coeff of Tawny 12.0 Plt Count 446 H Immature Gran % (Auto) 0.2 Neut % (Auto) 71.8 Lymph % (Auto) 20.2 Henry % (Auto) 7.0 Eos % (Auto) 0.4 Baso % (Auto) 0.4 Neut # (Auto) 6.0 Lymph # (Auto) 1.7 Henry # (Auto) 0.6 Eos # (Auto) 0.0 Baso # (Auto) 0.0 Immature Gran # (Auto) 0.0 ESR 80 H Sodium 136.9 Potassium 2.99 L Chloride 95.3 L Carbon Dioxide 35.3 H Anion Gap 9.29 BUN 8.3 Creatinine 0.47 L Estimated GFR (MDRD) 146.00 BUN/Creatinine Ratio 17.65 Glucose 156.1 H Lactic Acid Calcium 9.67 Magnesium 1.75 Total Bilirubin 1.08 AST 23.7 ALT 16.0 Alkaline Phosphatase 140.0 H Total Creatine Kinase < 20.0 L Total Protein 7.87 Albumin 3.87 Globulin 4.00 Albumin/Globulin Ratio 0.96 Urine Color Urine Clarity Urine pH Ur Specific [place] Urine Protein Urine Glucose (UA) Urine Ketones Urine Blood Urine Nitrite Urine Bilirubin Urine Urobilinogen Ur Leukocyte Esterase Urine Microscopic RBC Urine Microscopic WBC Ur Squamous Epith Cells Urine Bacteria Urine Test Urine Opiates Screen Ur Oxycodone Screen Urine Methadone Screen Ur Propoxyphene Screen Ur Barbiturates Screen U Tricyclic Antidepress Ur Phencyclidine Scrn Ur Amphetamine Screen U Methamphetamines Scrn U Benzodiazepines Scrn Urine Cocaine Screen U Cannabinoids Screen SARS CoV-2 RNA Rapid CIRILO 03/23/21 03/23/21 11:46 13:15 WBC RBC Hgb Hct MCV MCH MCHC RDW Coeff of Tawny Plt Count Immature Gran % (Auto) Neut % (Auto) Lymph % (Auto) Henry % (Auto) Eos % (Auto) Baso % (Auto) Neut # (Auto) Lymph # (Auto) Henry # (Auto) Eos # (Auto) Baso # (Auto) Immature Gran # (Auto) ESR Sodium Potassium Chloride Carbon Dioxide Anion Gap BUN Creatinine Estimated GFR (MDRD) BUN/Creatinine Ratio Glucose Lactic Acid 0.88 Calcium Magnesium Total Bilirubin AST ALT Alkaline Phosphatase Total Creatine Kinase Total Protein Albumin Globulin Albumin/Globulin Ratio Urine Color Urine Clarity Urine pH Ur Specific [place] Urine Protein Urine Glucose (UA) Urine Ketones Urine Blood Urine Nitrite Urine Bilirubin Urine Urobilinogen Ur Leukocyte Esterase Urine Microscopic RBC Urine Microscopic WBC Ur Squamous Epith Cells Urine Bacteria Urine Test Urine Opiates Screen Ur Oxycodone Screen Urine Methadone Screen Ur Propoxyphene Screen Ur Barbiturates Screen U Tricyclic Antidepress Ur Phencyclidine Scrn Ur Amphetamine Screen U Methamphetamines Scrn U Benzodiazepines Scrn Urine Cocaine Screen U Cannabinoids Screen SARS CoV-2 RNA Rapid CIRILO Negative Orders Category Date Time Status ADMIT PATIENT INPATIENT .TO [facility] (MONITORED BED) ADMISSION 03/23/21 14:01 Active ACTIVITY .Up ad Claire CARE 03/23/21 14:05 Active BLOOD GLUCOSE MONITORING (MED/SURG) 0630,1100,1700,2100 CARE 03/23/21 14:06 Active GIVE HS SNACK 2100 CARE 03/23/21 14:05 Active INTAKE & OUTPUT Q8HR CARE 03/23/21 14:04 Active REMINDER: Give Insulin if Needed 0630,1100,1700,2100 CARE 03/23/21 14:04 Active TELEMETRY MONITORING TELE CARE 03/23/21 14:02 Active VITAL SIGNS Q4HR CARE 03/23/21 14:04 Completed ADA 1800 PEARL. DIET DIETARY 03/23/21 Dinner Ordered HS SNACK DIETARY 03/23/21 Dinner Ordered IV [ED IV/MEDIPORT/POWERPORT] .ONCE EMERGENCY 03/23/21 11:34 Active BASIC METABOLIC PANEL DAILY@0600 LAB 03/24/21 06:00 Ordered BASIC METABOLIC PANEL DAILY@0600 LAB 03/25/21 06:00 Ordered BLOOD CULTURE (ED ONLY) Stat LAB 03/23/21 11:46 Received CBC W/ AUTO DIFF DAILY@0600 LAB 03/24/21 06:00 Ordered CBC W/ AUTO DIFF DAILY@0600 LAB 03/25/21 06:00 Ordered CBC W/ AUTO DIFF Stat LAB 03/23/21 10:25 Completed CMP [COMPREHENSIVE METABOLIC PANEL] Stat LAB 03/23/21 10:25 Completed CPK [CREATINE KINASE] Stat LAB 03/23/21 10:25 Completed ESR Stat LAB 03/23/21 10:25 Completed LACTIC ACID Stat LAB 03/23/21 11:46 Completed MAGNESIUM Stat LAB 03/23/21 10:25 Completed UA [URINALYSIS C & S IF INDICATED] Stat LAB 03/23/21 10:15 Completed URINE DRUG SCREEN (RAPID FOR ED) [DRUG SCREEN, URINE, LAB 03/23/21 10:15 Completed RAPID] Stat URINE Stat LAB 03/23/21 10:15 Completed 0.9 % Sodium Chloride [Saline Flush] MEDS 03/23/21 11:33 Active 1 syr IVF PRN PRN Acetaminophen [Tylenol] MEDS 03/23/21 14:04 Active 650 mg PO Q4H PRN Ceftriaxone 1 gm Vial [Rocephin 1 gm Vial] MEDS 03/23/21 11:48 Discontinued 1 gm IM ONCE STA Clindamycin Phosphate/D5w [Cleocin 300 mg/50 ml D5w] MEDS 03/23/21 18:00 Active 300 mg in 50 ml IV Q6HR Clindamycin Phosphate/D5w [Cleocin 600 mg/50 ml D5w] MEDS 03/23/21 11:37 Discontinued 600 mg in 50 ml IV ONCE Hydrocodone Bit/Acetaminophen [Quilcene 5-325] MEDS 03/23/21 14:04 Active 1 tab PO Q6H PRN Lidocaine HCl/Pf [Lidocaine HCl 1% Sdv] MEDS 03/23/21 11:48 Discontinued 2.1 ml IM ONCE STA Ondansetron HCl/Pf [Zofran 4 mg/2 ml] MEDS 03/23/21 13:36 Discontinued 4 mg IVP ONCE STA Ondansetron HCl/Pf [Zofran 4 mg/2 ml] MEDS 03/23/21 14:04 Active 4 mg IVP Q6H PRN Potassium Chloride [Potassium Chloride 20 Meq/100 ml MEDS 03/23/21 11:35 Discontinued Premix] 20 meq in 100 ml IV ONCE Potassium Chloride in 0.9%NaCl [Sodium Chloride 0.9%- MEDS 03/23/21 14:30 Active KCl 20 Meq] 1,000 ml IV 70 mls/hr Sodium Chloride 0.9% [Sodium Chloride] 1,000 ml MEDS 03/23/21 11:33 Discon tinued IV BOLUS RESUSCITATION STATUS Routine OTHERS 03/23/21 14:[address] ELBOW RIGHT WO CONTRAST Stat RADS 03/23/21 10:[address] HUMERUS RIGHT W/O CONTRAST Stat RADS 03/23/21 10:15 Completed Medications Generic Name Dose Route Start Last Admin Trade Name Freq PRN Reason Stop Dose Admin Acetaminophen 650 mg 03/23/21 14:04 Acetaminophen 325 Mg Tablet PO Q4H PRN Fever >101 Hydrocodone Bitart/Acetaminophen 1 tab 03/23/21 14:04 Hydrocodone Bit/Acetaminophen 5/325 Mg Tablet PO Q6H PRN Pain Potassium Chloride/Sodium Chloride 1,000 mls @ 70 mls/hr 03/23/21 14:30 Sodium Chloride 0.9%-Kcl 20 Meq IV .[id number] ALLYSON Clindamycin Phosphate 300 mg in 50 mls @ 75 mls/hr 03/23/21 18:00 Cleocin 300 Mg/50 Ml D5w IV 03/26/21 17:59 Q6HR [place] Ondansetron HCl 4 mg 03/23/21 14:04 Ondansetron Hcl/Pf 4 Mg/2 Ml Sdv IVP Q6H PRN Nausea / Vomiting Sodium Chloride 1 syr 03/23/21 11:33 03/23/21 12:39 0.9% Sodium Chloride 10 Ml Disp.Syrin IVF 1 syr PRN PRN Administration To flush IV Discontinued Medications Generic Name Dose Route Start Last Admin Trade Name Freq PRN Reason Stop Dose Admin Ceftriaxone Sodium 1 gm 03/23/21 11:48 03/23/21 12:40 Ceftriaxone 1 Gm Vial 1 Gm Vial IM 03/23/21 11:49 1 gm ONCE STA Administration Enoxaparin Sodium 40 mg 03/23/21 14:14 03/23/21 15:51 Enoxaparin Sodium 40 Mg/0.4 Ml Syr SUBCUT 03/23/21 14:15 40 mg ONCE STA Administration Sodium Chloride 1,000 mls @ 1,000 mls/hr 03/23/21 11:33 03/23/21 12:39 Sodium Chloride IV 03/23/21 12:32 1,000 mls/hr BOLUS STA Administration Potassium Chloride 20 meq in 100 mls @ 50 mls/hr 03/23/21 11:35 03/23/21 14:05 Potassium Chloride 20 Meq/100 Ml Premix IV 03/23/21 13:34 50 mls/hr ONCE STA Administration Clindamycin Phosphate 600 mg in 50 mls @ 75 mls/hr 03/23/21 11:37 03/23/21 12:40 Cleocin 600 Mg/50 Ml D5w IV 03/23/21 12:16 75 mls/hr ONCE ONE Administration Lidocaine HCl 2.1 ml 03/23/21 11:48 03/23/21 12:39 Lidocaine Hcl/Pf 1% 5 Ml Vial IM 03/23/21 11:49 2.1 ml ONCE STA Administration Ondansetron HCl 4 mg 03/23/21 13:36 03/23/21 13:41 Ondansetron Hcl/Pf 4 Mg/2 Ml Sdv IVP 03/23/21 13:37 4 mg ONCE STA Administration Vital Signs: Temp Pulse Resp BP Pulse Ox 03/23/21 09:09 97.3 F L 108 H 16 104/73 96 Discharge Plan Discharge Patient Disposition: ADMITTED INPATIENT Discharge Problem: Cellulitis of arm, right, Type II diabetes mellitus ED Provider: COOKIE PHILLIP Condition: Good Physician Progress Note: []
[2021-03-23] MEDS ORDERED: NORCO 5-325 PO PRN (14:04)
[2021-03-23] MEDS ORDERED: TYLENOL PO PRN (14:04)
[2021-03-23] MEDS ORDERED: LOVENOX SUBCUT STA (14:14)
[2021-03-23 14:40] VITALS: BMI 27.3
[2021-03-23] MEDS: CLEOCIN 300 MG/50 ML D5W 300 MG/50 ML BAG IV SCH (17:06)
[2021-03-23] MEDS: SODIUM CHLORIDE 0.9%-KCL 20 MEQ 1,000 ML IV SCH (17:07)
[2021-03-23 17:55] LABS: BLOOD UREA NITROGEN 8.1 mg/dL (7-17); CALCIUM 9.51 mg/dL (8.4-10.2); CARBON DIOXIDE 30.5 mmol/L (22-30.0); CHLORIDE 94.5 mmol/L (98-107); CREATININE 0.38 mg/dL (0.60-1.30); GLUCOSE 137.6 mg/dL (74-106); POTASSIUM 3.37 mmol/L (3.5-5.1); SODIUM 134.5 mmol/L (134.5-145)
[2021-03-23] MEDS: ZOFRAN 4 MG/2 ML IVP PRN (19:38)
[2021-03-23] MEDS ORDERED: DUONEB NEB SCH (20:00)
[2021-03-23] MEDS: HUMULIN R SUBCUT PRN (21:10)
[2021-03-23] MEDS ORDERED: MYLANTA SUSP PO PRN (21:15)
[2021-03-24] MEDS: CLEOCIN 300 MG/50 ML D5W 300 MG/50 ML BAG IV SCH ×2 (01:00→06:31)
[2021-03-24] MEDS: ZOFRAN 4 MG/2 ML IVP PRN (01:38)
[2021-03-24 05:39] LABS: BASOPHILS % (AUTO) 0.2 % (0.0-3.0); EOSINOPHILS % (AUTO) 0.4 % (0.0-7.0); HEMATOCRIT 40.3 % (37.0-47.0); HEMOGLOBIN 13.3 g/dl (12.0-16.0); IMMATURE GRANULOCYTE % (AUTO) 0.2 % (0.0-5.0); LYMPHOCYTES # (AUTO) 1.7 K/uL (0.60-3.4); LYMPHOCYTES % (AUTO) 19.5 (10.0-50.0); MEAN CORPUSCULAR HEMOGLOBIN 30.2 pg (27.0-31.0); MEAN CORPUSCULAR VOLUME 91.4 fl (81.0-99.0); MONOCYTES # (AUTO) 0.6 K/uL (0.4-2.0); MONOCYTES % (AUTO) 6.6 (0-10); NEUTROPHILS # (AUTO) 6.2 K/ul (2.0-6.9); NEUTROPHILS % (AUTO) 73.1 % (42.2-75.2); PLATELET COUNT 468 10^3/uL (140-440); RDW COEFFICIENT OF VARIATION 11.9 % (11.6-14.8); RED BLOOD COUNT 4.41 10^6/ul (4.20-5.40)
[2021-03-24 05:52] LABS: BLOOD UREA NITROGEN 8.9 mg/dL (7-17); CALCIUM 9.65 mg/dL (8.4-10.2); CARBON DIOXIDE 27.8 mmol/L (22-30.0); CHLORIDE 98.4 mmol/L (98-107); CREATININE 0.44 mg/dL (0.60-1.30); POTASSIUM 3.63 mmol/L (3.5-5.1); SODIUM 136.6 mmol/L (134.5-145)
[2021-03-24] MEDS ORDERED: VANCOMYCIN 1 GRAM/200 ML PREMIX 1 GM/200 ML BAG IV ONE ×2 (06:19→07:30)
--- NOTE | 2021-03-24 08:16 | PCM.PROG ---
Date Seen by Provider: 03/24/21 Time Seen by Provider: 08:11 Subjective: im nauseatd---can i have something for acid reflux--complaining of "burning" sensation in her esophagus Objective: Vitals: T=98.1 F, P=92, R=22, YB=581/91, SPO2=99 HEENT: [] Neck: [supple] Lungs: [clear] CVS: [rrr] Abdomen: [soft nt bs] Extremities: [noted improving erythema of the right upper extremity] Neurological: [grossly intact] Skin: [] Lab/Tests/Diagnostic Imaging: [] (1) Hyperglycemia due to type 1 diabetes mellitus: Status: Inactive Code(s): E10.65 - Type 1 diabetes mellitus with hyperglycemia SNOMED Code(s): 191375998576717 (2) Cellulitis of arm, right: Status: Acute Code(s): L03.113 - Cellulitis of right upper limb SNOMED Code(s): 204706498 Assessment: was told today that her blood cultures were pos for gram pos cocci Plan: since blood cultures pos---will change iv antbx to vancomycin--pharmcy consulted for dosing---monitor labs--check labs and cardiac enzyhmes for "esophageal burning" and add protonix---see orders
[2021-03-24] MEDS: PROTONIX IV IVP SCH ×2 (08:38→21:38)
[2021-03-24 09:02] LABS: CREATINE KINASE 51.6 U/L (30-135)
[2021-03-24 09:15] LABS: TROPONIN I < 0.012 ng/ml (0.0000-0.120)
[2021-03-24] MEDS: SODIUM CHLORIDE 0.9%-KCL 20 MEQ 1,000 ML IV SCH (12:35)
[2021-03-24] MEDS: VANCOMYCIN 1 GRAM/200 ML PREMIX 1 GM/200 ML BAG IV SCH ×2 (14:39→21:39)
[2021-03-24] MEDS: HUMULIN R SUBCUT PRN (21:38)
[2021-03-25] MEDS: SODIUM CHLORIDE 0.9%-KCL 20 MEQ 1,000 ML IV SCH ×2 (02:55→17:58)
[2021-03-25] MEDS: HUMULIN R SUBCUT PRN ×2 (03:04→06:29)
[2021-03-25] MEDS: ZOFRAN 4 MG/2 ML IVP PRN (03:06)
[2021-03-25] MEDS: VANCOMYCIN 1 GRAM/200 ML PREMIX 1 GM/200 ML BAG IV SCH ×3 (05:06→21:12)
[2021-03-25 05:51] LABS: BASOPHILS % (AUTO) 0.1 % (0.0-3.0); EOSINOPHILS # (AUTO) 0.1 K/ul (0.0-0.7); EOSINOPHILS % (AUTO) 0.7 % (0.0-7.0); HEMATOCRIT 40.6 % (37.0-47.0); HEMOGLOBIN 13.6 g/dl (12.0-16.0); IMMATURE GRANULOCYTE % (AUTO) 0.3 % (0.0-5.0); LYMPHOCYTES # (AUTO) 1.7 K/uL (0.60-3.4); LYMPHOCYTES % (AUTO) 22.5 (10.0-50.0); MEAN CORPUSCULAR HEMOGLOBIN 30.7 pg (27.0-31.0); MEAN CORPUSCULAR HGB CONC 33.5 (31.8-35.4); MEAN CORPUSCULAR VOLUME 91.6 fl (81.0-99.0); MONOCYTES # (AUTO) 0.6 K/uL (0.4-2.0); MONOCYTES % (AUTO) 8.6 (0-10); NEUTROPHILS % (AUTO) 67.8 % (42.2-75.2); PLATELET COUNT 428 10^3/uL (140-440); RDW COEFFICIENT OF VARIATION 11.8 % (11.6-14.8); RED BLOOD COUNT 4.43 10^6/ul (4.20-5.40); WHITE BLOOD COUNT 7.33 K/ul (4.6-10.2)
[2021-03-25 06:04] LABS: BLOOD UREA NITROGEN 8.2 mg/dL (7-17); CALCIUM 9.22 mg/dL (8.4-10.2); CARBON DIOXIDE 27.5 mmol/L (22-30.0); CHLORIDE 102.4 mmol/L (98-107); CREATININE 0.53 mg/dL (0.60-1.30); GLUCOSE 155.9 mg/dL (74-106); POTASSIUM 4.22 mmol/L (3.5-5.1); SODIUM 135.1 mmol/L (134.5-145)
[2021-03-25] MEDS ORDERED: ZOFRAN 4 MG/2 ML IVP PRN (10:02)
[2021-03-25] MEDS: PROTONIX IV IVP SCH ×2 (10:03→20:59)
[2021-03-25] MEDS: MAXIPIME 2 GM/50 ML D5W 2 GM/50 ML BAG IV SCH ×2 (10:23→20:00)
--- NOTE | 2021-03-25 12:00 | CT ---
EXAM: CT abdomen pelvis without contrast HISTORY: Vomiting COMPARISON: CT abdomen pelvis 07/28/2016 TECHNIQUE: Serial axial images of the abdomen pelvis were performed from the lung bases through the inferior pelvis without contrast. These were viewed in multiple planes. FINDINGS: The lung bases are clear. Evaluation is limited due to lack of contrast. The liver is unremarkable. The gallbladder is unrema rkable. The adrenal glands are normal. Bilateral kidneys demonstrate minimal perinephric stranding. The kidneys have decreased in appearance of ascites compared 2017. The spleen is normal. Pancreas is normal. Stomach is minimally distended. The small bowel in the abdomen pelvis is unremarkable. The colon is unremarkable. The appendix is n ormal. The urinary bladder is distended. The uterus is normal. There is no free air, free fluid. There is no lymphadenopathy. The osseous structures demonstrate degenerative disease. IMPRESSION: 1. Minimal bilateral nonspecific perinephric stranding which may represent subtle inflammation/infec tion. There is no visualized stone. 2. No additional abnormality is identified. All CT scans are performed using dose optimization techniques as appropriate to the performed exam an d include at least one of the following: Automated exposure control, adjustment of the mA and/or kV according t o size, and the use of iterative reconstruction technique.
--- NOTE | 2021-03-25 20:45 | PCM.PROG ---
Date Seen by Provider: 03/25/21 Time Seen by Provider: 12:00 Subjective: Having some nausea and abdominal cramping. Right arm cellulitis area seems better. HPI: Admitted 03/23 with cellulitis right arm area without wound. Failed outpatient tx with keflex. Some belly cramping. Objective: Vitals: T=97.9 F, P=90, R=18, DB=601/98, YLU4=888 HEENT: [wnl] Neck: [supple] Lungs: [clear] CVS: [rrr] Abdomen: [mild cramping, nl BS] Extremities: [intact, still some erythema right elbow area, no abscess] Neurological: intact Skin: [no change] Lab/Tests/Diagnostic Imaging: [Labs - no sig. abnormality. CT abd/pel - inflamed kidneys (has UTI)] (1) Hyperglycemia due to type 1 diabetes mellitus: Status: Inactive Code(s): E10.65 - Type 1 diabetes mellitus with hyperglycemia SNOMED Code(s): 039999173004791 Assessment: Blood sugar controlled with insulin. (2) Cellulitis of arm, right: Status: Acute Code(s): L03.113 - Cellulitis of right upper limb SNOMED Code(s): 112037112 Assessment: Slight improvement. Is on vanc alone, will add a cephalosporin, pharmacist will dose. (3) Pyelonephritis: Status: Acute Code(s): N12 - Tubulo-interstitial nephritis, not specified as acute or chronic SNOMED Code(s): 81956217 Assessment: On vanc and cefepime (just added). Unresolved UTI likely source of nausea. Could have diabetic gastroparesis as well. Zofran, protonix. Plan: 1. Continue insulin for DM. 2. Vanc and cefepime for cellulitis. 3. UTI - on vanc and cefepime. 4. Misc - lovenox, protonix.
[2021-03-26] MEDS: VANCOMYCIN 1 GRAM/200 ML PREMIX 1 GM/200 ML BAG IV SCH ×3 (05:21→21:39)
[2021-03-26] MEDS: REGLAN IVP SCH ×4 (07:48→21:41)
[2021-03-26] MEDS: PROTONIX IV IVP SCH (08:35)
[2021-03-26] MEDS: MAXIPIME 2 GM/50 ML D5W 2 GM/50 ML BAG IV SCH ×2 (09:13→20:14)
[2021-03-26] MEDS: LOVENOX SUBCUT SCH (09:13)
--- NOTE | 2021-03-26 09:59 | PCM.PROG ---
Date Seen by Provider: 03/26/21 Time Seen by Provider: 09:30 Subjective: Patient states Fred feeling better today . Denies Rt arm pain Objective: Vitals: T=97.7 F, P=105, R=20, MD=501/92, SPO2=97 HEENT: Clear Neck: soft non tender. Lungs: CTA CVS: HR RRR Abdomen: Soft non tender. BS active Extremities: No tenderness Rt arm Neurological: No acute focal deficit Skin: Neg rash Lab/Tests/Diagnostic Imaging: [] (1) Hyperglycemia due to type 1 diabetes mellitus: Status: Inactive Code(s): E10.65 - Type 1 diabetes mellitus with hyperglycemia SNOMED Code(s): 063189764761480 (2) Cellulitis of arm, right: Status: Resolved Code(s): L03.113 - Cellulitis of right upper limb SNOMED Code(s): 038148213 (3) Pyelonephritis: Status: Acute Code(s): N12 - Tubulo-interstitial nephritis, not specified as acute or chronic SNOMED Code(s): 78447928 (4) Blood bacterial culture positive: Status: Acute Code(s): R78.81 - Bacteremia SNOMED Code(s): 5504435876487375 Plan: Continue current treatment Monitor GI function Continue Reglan
[2021-03-26] MEDS: HUMULIN R SUBCUT PRN ×2 (10:35→21:39)
[2021-03-26] MEDS: SODIUM CHLORIDE 0.9%-KCL 20 MEQ 1,000 ML IV SCH (11:38)
[2021-03-26 13:50] LABS: BILIRUBIN,URINE Negative (NEGATIVE); CLARITY,URINE Clear (CLEAR); COLOR,URINE Yellow (YELLOW); GLUCOSE, URINE (UA) 2+ (NEGATIVE); KETONES,URINE 3+ (NEGATIVE); LEUKOCYTE ESTERASE ,URINE Negative (NEGATIVE); NITRITE,URINE Negative (NEGATIVE); PROTEIN,URINE Negative (NEGATIVE); URINE, BLOOD Negative (NEGATIVE); UROBILINOGEN,URINE 0.2 (0.2)
[2021-03-26] MEDS: PEPCID PO SCH (18:07)
[2021-03-27] MEDS: SODIUM CHLORIDE 0.9%-KCL 20 MEQ 1,000 ML IV SCH (03:32)
[2021-03-27 05:15] VITALS: BP 84/48; TEMP 97.8
[2021-03-27] MEDS: VANCOMYCIN 1 GRAM/200 ML PREMIX 1 GM/200 ML BAG IV SCH (05:31)
[2021-03-27] MEDS: PEPCID PO SCH (05:32)
[2021-03-27] MEDS: REGLAN IVP SCH ×2 (06:46→12:00)
[2021-03-27] MEDS: PROTONIX IV IVP SCH (08:34)
[2021-03-27] MEDS: LOVENOX SUBCUT SCH (08:42)
[2021-03-27] MEDS: MAXIPIME 2 GM/50 ML D5W 2 GM/50 ML BAG IV SCH (08:43)
--- NOTE | 2021-03-27 10:01 | PCM.DC ---
Final Diagnosis: Admit date - 03/23/2021 Discharge date - 03/27/2021 Admit diagnosis - In records. Discharge diagnosis - 1. Cellulitis right arm - resolving. 2. Pyelonephritis - resolved. 3. Type I diabetes - controlled. 4. Nausea and vomiting - controlled. Physical Exam Appearance: Well-appearing Ill-appearing: None Pain Distress: None Eyes: SCOT ENT: Oropharynx normal Neck: Supple Respiratory: Airway patent and Breath sounds clear Cardiovascular: RRR and Pulses normal GI/: Soft and Nontender Musculoskeletal: Normal strength, ROM intact, No edema and Other (Right elbow cellulitis resolved except for a small area of erythema, no abscess, NVI.) Skin: Warm and Dry Neurological: Sensation intact and Motor intact Psychiatric: Affect appropriate and Mood appropriate (1) Cellulitis of arm, right: Status: Resolved Code(s): L03.113 - Cellulitis of right upper limb SNOMED Code(s): 759028630 (2) Pyelonephritis: Status: Acute Code(s): N12 - Tubulo-interstitial nephritis, not specified as acute or chronic SNOMED Code(s): 85235978 (3) Nausea and vomiting in adult: Status: Acute Code(s): R11.2 - Nausea with vomiting, unspecified SNOMED Code(s): 88225600 Reason for Hospitalization: Admit for cellulitis right arm that had failed outpatient tx with keflex. UTI. Elevated blood sugar in a T I diabetic. Nausea and vomiting. Prognosis/Condition at Discharge: Good. Stable Medications at Discharge: Ambulatory Orders Medication Instructions Recorded mupirocin 2 % topical ointment 1 applic TOPICAL BID #1 tube 11/21/18 cephalexin 500 mg capsule 500 mg PO TID 03/23/21 dapagliflozin 10 mg tablet 10 mg PO BEDTIME 03/23/21 (Farxiga) dulaglutide 0.75 mg/0.5 mL 0.75 mg SUBCUT WEEKLY 03/23/21 subcutaneous pen injector (Trulicity) insulin glargine 100 unit/mL (3 20 unit SUBCUT INSULIN EVENING 03/23/21 mL) subcutaneous pen (Lantus Solostar U-100 Insulin) lisinopril 5 mg tablet 5 mg PO DAILY 03/23/21 pen needle, diabetic 31 gauge x 03/23/2102/26" (TRUEplus Pen Needle) Lab/Diagnostics: Laboratory Tests 03/23/21 03/23/21 03/23/21 10:15 10:15 10:15 WBC RBC Hgb Hct MCV MCH MCHC RDW Coeff of Tawny Plt Count Immature Gran % (Auto) Neut % (Auto) Lymph % (Auto) Noble % (Auto) Eos % (Auto) Baso % (Auto) Neut # (Auto) Lymph # (Auto) Noble # (Auto) Eos # (Auto) Baso # (Auto) Immature Gran # (Auto) ESR Sodium Potassium Chloride Carbon Dioxide Anion Gap BUN Creatinine Estimated GFR (MDRD) BUN/Creatinine Ratio Glucose Lactic Acid Calcium Magnesium Total Bilirubin AST ALT Alkaline Phosphatase Total Creatine Kinase Troponin I Total Protein Albumin Globulin Albumin/Globulin Ratio Urine Color Yellow Urine Clarity Slightly Urine pH 5.5 Ur Specific [place] 1.025 Urine Protein 1+ H Urine Glucose (UA) 2+ H Urine Ketones 4+ Urine Blood Trace-lysed Urine Nitrite Positive H Urine Bilirubin Negative Urine Urobilinogen 1.0 H Ur Leukocyte Esterase Negative Urine Microscopic RBC 2-5 Urine Microscopic WBC Tntc Ur Squamous Epith Cells 5-10 Urine Bacteria 4+ Urine Test Negative Vancomycin Trough Urine Opiates Screen Negative Ur Oxycodone Screen Negative Urine Methadone Screen Negative Ur Propoxyphene Screen Negative Ur Barbiturates Screen Negative U Tricyclic Antidepress Negative Ur Phencyclidine Scrn Negative Ur Amphetamine Screen Positive H U Methamphetamines Scrn Positive H U Benzodiazepines Scrn Negative Urine Cocaine Screen Negative U Cannabinoids Screen Negative SARS CoV-2 RNA Rapid CIRILO 03/23/21 03/23/21 03/23/21 10:25 10:25 10:25 WBC 8.30 RBC 4.56 Hgb 14.0 Hct 41.5 MCV 91.0 MCH 30.7 MCHC 33.7 RDW Coeff of Tawny 12.0 Plt Count 446 H Immature Gran % (Auto) 0.2 Neut % (Auto) 71.8 Lymph % (Auto) 20.2 Noble % (Auto) 7.0 Eos % (Auto) 0.4 Baso % (Auto) 0.4 Neut # (Auto) 6.0 Lymph # (Auto) 1.7 Noble # (Auto) 0.6 Eos # (Auto) 0.0 Baso # (Auto) 0.0 Immature Gran # (Auto) 0.0 ESR 80 H Sodium 136.9 Potassium 2.99 L Chloride 95.3 L Carbon Dioxide 35.3 H Anion Gap 9.29 BUN 8.3 Creatinine 0.47 L Estimated GFR (MDRD) 146.00 BUN/Creatinine Ratio 17.65 Glucose 156.1 H Lactic Acid Calcium 9.67 Magnesium 1.75 Total Bilirubin 1.08 AST 23.7 ALT 16.0 Alkaline Phosphatase 140.0 H Total Creatine Kinase < 20.0 L Troponin I Total Protein 7.87 Albumin 3.87 Globulin 4.00 Albumin/Globulin Ratio 0.96 Urine Color Urine Clarity Urine pH Ur Specific [place] Urine Protein Urine Glucose (UA) Urine Ketones Urine Blood Urine Nitrite Urine Bilirubin Urine Urobilinogen Ur Leukocyte Esterase Urine Microscopic RBC Urine Microscopic WBC Ur Squamous Epith Cells Urine Bacteria Urine Test Vancomycin Trough Urine Opiates Screen Ur Oxycodone Screen Urine Methadone Screen Ur Propoxyphene Screen Ur Barbiturates Screen U Tricyclic Antidepress Ur Phencyclidine Scrn Ur Amphetamine Screen U Methamphetamines Scrn U Benzodiazepines Scrn Urine Cocaine Screen U Cannabinoids Screen SARS CoV-2 RNA Rapid CIRILO 03/23/21 03/23/21 03/23/21 11:46 13:15 17:40 WBC RBC Hgb Hct MCV MCH MCHC RDW Coeff of Tawny Plt Count Immature Gran % (Auto) Neut % (Auto) Lymph % (Auto) Noble % (Auto) Eos % (Auto) Baso % (Auto) Neut # (Auto) Lymph # (Auto) Noble # (Auto) Eos # (Auto) Baso # (Auto) Immature Gran # (Auto) ESR Sodium 134.5 Potassium 3.37 L Chloride 94.5 L Carbon Dioxide 30.5 H Anion Gap 12.87 BUN 8.1 Creatinine 0.38 L Estimated GFR (MDRD) 187.00 BUN/Creatinine Ratio 21.31 Glucose 137.6 H Lactic Acid 0.88 Calcium 9.51 Magnesium Total Bilirubin AST ALT Alkaline Phosphatase Total Creatine Kinase Troponin I Total Protein Albumin Globulin Albumin/Globulin Ratio Urine Color Urine Clarity Urine pH Ur Specific [place] Urine Protein Urine Glucose (UA) Urine Ketones Urine Blood Urine Nitrite Urine Bilirubin Urine Urobilinogen Ur Leukocyte Esterase Urine Microscopic RBC Urine Microscopic WBC Ur Squamous Epith Cells Urine Bacteria Urine Test Vancomycin Trough Urine Opiates Screen Ur Oxycodone Screen Urine Methadone Screen Ur Propoxyphene Screen Ur Barbiturates Screen U Tricyclic Antidepress Ur Phencyclidine Scrn Ur Amphetamine Screen U Methamphetamines Scrn U Benzodiazepines Scrn Urine Cocaine Screen U Cannabinoids Screen SARS CoV-2 RNA Rapid CIRILO Negative 03/24/21 03/24/21 03/24/21 05:05 05:05 05:05 WBC 8.50 RBC 4.41 Hgb 13.3 Hct 40.3 MCV 91.4 MCH 30.2 MCHC 33.0 RDW Coeff of Tawny 11.9 Plt Count 468 H Immature Gran % (Auto) 0.2 Neut % (Auto) 73.1 Lymph % (Auto) 19.5 Noble % (Auto) 6.6 Eos % (Auto) 0.4 Baso % (Auto) 0.2 Neut # (Auto) 6.2 Lymph # (Auto) 1.7 Noble # (Auto) 0.6 Eos # (Auto) 0.0 Baso # (Auto) 0.0 Immature Gran # (Auto) 0.0 ESR Sodium 136.6 Potassium 3.63 Chloride 98.4 Carbon Dioxide 27.8 Anion Gap 14.03 BUN 8.9 Creatinine 0.44 L Estimated GFR (MDRD) 158.00 BUN/Creatinine Ratio 20.22 Glucose 130.0 H Lactic Acid Calcium 9.65 Magnesium Total Bilirubin AST ALT Alkaline Phosphatase Total Creatine Kinase 51.6 Troponin I < 0.012 Total Protein Albumin Globulin Albumin/Globulin Ratio Urine Color Urine Clarity Urine pH Ur Specific [place] Urine Protein Urine Glucose (UA) Urine Ketones Urine Blood Urine Nitrite Urine Bilirubin Urine Urobilinogen Ur Leukocyte Esterase Urine Microscopic RBC Urine Microscopic WBC Ur Squamous Epith Cells Urine Bacteria Urine Test Vancomycin Trough Urine Opiates Screen Ur Oxycodone Screen Urine Methadone Screen Ur Propoxyphene Screen Ur Barbiturates Screen U Tricyclic Antidepress Ur Phencyclidine Scrn Ur Amphetamine Screen U Methamphetamines Scrn U Benzodiazepines Scrn Urine Cocaine Screen U Cannabinoids Screen SARS CoV-2 RNA Rapid CIRILO 03/25/21 03/25/21 03/26/21 05:06 05:06 04:40 WBC 7.33 RBC 4.43 Hgb 13.6 Hct 40.6 MCV 91.6 MCH 30.7 MCHC 33.5 RDW Coeff of Tawny 11.8 Plt Count 428 Immature Gran % (Auto) 0.3 Neut % (Auto) 67.8 Lymph % (Auto) 22.5 Noble % (Auto) 8.6 Eos % (Auto) 0.7 Baso % (Auto) 0.1 Neut # (Auto) 5.0 Lymph # (Auto) 1.7 Noble # (Auto) 0.6 Eos # (Auto) 0.1 Baso # (Auto) 0.0 Immature Gran # (Auto) 0.0 ESR Sodium 135.1 Potassium 4.22 Chloride 102.4 Carbon Dioxide 27.5 Anion Gap 9.42 BUN 8.2 Creatinine 0.53 L Estimated GFR (MDRD) 127.00 BUN/Creatinine Ratio 15.47 Glucose 155.9 H Lactic Acid Calcium 9.22 Magnesium Total Bilirubin AST ALT Alkaline Phosphatase Total Creatine Kinase Troponin I Total Protein Albumin Globulin Albumin/Globulin Ratio Urine Color Urine Clarity Urine pH Ur Specific [place] Urine Protein Urine Glucose (UA) Urine Ketones Urine Blood Urine Nitrite Urine Bilirubin Urine Urobilinogen Ur Leukocyte Esterase Urine Microscopic RBC Urine Microscopic WBC Ur Squamous Epith Cells Urine Bacteria Urine Test Vancomycin Trough 12.859 Urine Opiates Screen Ur Oxycodone Screen Urine Methadone Screen Ur Propoxyphene Screen Ur Barbiturates Screen U Tricyclic Antidepress Ur Phencyclidine Scrn Ur Amphetamine Screen U Methamphetamines Scrn U Benzodiazepines Scrn Urine Cocaine Screen U Cannabinoids Screen SARS CoV-2 RNA Rapid CIRILO 03/26/21 03/26/21 04:40 13:36 WBC RBC Hgb Hct MCV MCH MCHC RDW Coeff of Tawny Plt Count Immature Gran % (Auto) Neut % (Auto) Lymph % (Auto) Noble % (Auto) Eos % (Auto) Baso % (Auto) Neut # (Auto) Lymph # (Auto) Noble # (Auto) Eos # (Auto) Baso # (Auto) Immature Gran # (Auto) ESR Sodium Potassium Chloride Carbon Dioxide Anion Gap BUN Creatinine Estimated GFR (MDRD) BUN/Creatinine Ratio Glucose 204.2 H Lactic Acid Calcium Magnesium Total Bilirubin AST ALT Alkaline Phosphatase Total Creatine Kinase Troponin I Total Protein Albumin Globulin Albumin/Globulin Ratio Urine Color Yellow Urine Clarity Clear Urine pH 6.0 Ur Specific [place] 1.015 Urine Protein Negative Urine Glucose (UA) 2+ H Urine Ketones 3+ H Urine Blood Negative Urine Nitrite Negative Urine Bilirubin Negative Urine Urobilinogen 0.2 Ur Leukocyte Esterase Negative Urine Microscopic RBC Urine Microscopic WBC Ur Squamous Epith Cells Urine Bacteria Urine Test Vancomycin Trough Urine Opiates Screen Ur Oxycodone Screen Urine Methadone Screen Ur Propoxyphene Screen Ur Barbiturates Screen U Tricyclic Antidepress Ur Phencyclidine Scrn Ur Amphetamine Screen U Methamphetamines Scrn U Benzodiazepines Scrn Urine Cocaine Screen U Cannabinoids Screen SARS CoV-2 RNA Rapid CIRILO [address] Report : [id number] : 1980 Age/Sex: 40 / F Date of Service: 03/23/21 Ordering Physician: COOKIE PHILLIP DO Procedure(s): CT ELBOW RIGHT WO CONTRAST Report Number(s): [id number] Accession Number(s): [id number] cc: KELSEY PERKINS ; COOKIE PHILLIP DO EXAM: CT right elbow with contrast HISTORY: swelling distal arm, posteriorly) COMPARISON: None. TECHNIQUE: Axial imaging of the right elbow was performed without contrast. Sagittal and coronal re-formations were performed. FINDINGS: No acute fracture or dislocation. The osseous cortex is preserved. Mild soft tissue swelling overlying the olecranon process and proximal ulna. No well-defined fluid collection is appreciated. No evidence of avascular necrosis . No significant joint effusion is present. IMPRESSION: Findings suggestive of cellulitis overlying the proximal ulna. No drainable fluid collection is present. CT abdomen/pelvis without: FINDINGS: The lung bases are clear. Evaluation is limited due to lack of contrast. The liver is unremarkable. The gallbladder is unremarkable. The adrenal glands are normal. Bilateral kidneys demonstrate minimal perinephric stranding. The kidneys have decreased in appearance of ascites compared 2017. The spleen is normal. Pancreas is normal. Stomach is minimally distended. The small bowel in the abdomen pelvis is unremarkable. The colon is unremarkable. The appendix is normal. The urinary bladder is distended. The uterus is normal. There is no free air, free fluid. There is no lymphadenopathy. The osseous structures demonstrate degenerative disease. IMPRESSION: 1. Minimal bilateral nonspecific perinephric stranding which may represent subtle inflammation/infection. There is no visualized stone. 2. No additional abnormality is identified. Education Provided to Patient and Family: Cellulitis. Follow-ups: PCP in one week. Discharge Disposition: Home Hospital Course: 40 y/o female admitted with extensive cellulitis right elbow/arm area that failed keflex. No abscess. Admitted for IV abx, vancomycin and cefepime. Blood culture grew staph, not MRSA. UTI/mild pyelonephritis. Urine culture neg. Diabetes controlled. Nausea and vomiting. Improved. Source may have been related to UTI, med effects, GERD, or diabetic gastroparesis. 1. Cellulitis right arm - nearly resolved. 2. UTI - resolved. 3. TIDM controlled. 4. Nausea and vomiting - improved. This discharge done in a [id number] exam lasting 20 minutes, then another 40 minutes preparing the d/c and Rx to pharmacies for 60 minutes total. Plan: Home with Rx of bactrim to complete cellulitis treatment. Continue diabetes and other med. Rx for zofran, protonix, and reglan for GI problems. Diabetic diet and activity as tolerated.
== END 2021-03-27 12:35 | disposition home or self-care (01) | DRG 638 ==
LOC: ED 09:08 → MEDSURG A 14:11
PROVIDERS: ADMIT Emergency Medicine; ATTEND Emergency Medicine
DX: Z79.899 Other long term (current) drug therapy; M79.18 Myalgia, other site; B96.20 Unspecified Escherichia coli [E. coli] as the cause of diseases classified elsewhere; R78.81 Bacteremia; Z51.81 Encounter for therapeutic drug level monitoring; R11.2 Nausea with vomiting, unspecified; N12 Tubulo-interstitial nephritis, not specified as acute or chronic; E10.65 Type 1 diabetes mellitus with hyperglycemia; L03.113 Cellulitis of right upper limb

== ENCOUNTER 2023-10-09 11:05 | Inpatient (IN) ==
--- NOTE | 2023-10-09 11:18 | ED.PDOC ---
General ED Provider: Dr. MILTON WILLINGHAM MD Chief Complaint: Abnormal Labs Stated Complaint: Abnormal labs Time Seen by Provider: 10/09/23 11:18 Mode of Arrival: Walk-In Primary Care Provider: RADU HERRERA APRN Referred to ED by: PCP Nursing and Triage Documentation Reviewed and Agree: Yes What is Opioid Naive?: *Opioid Naive implies the patient is not already taking opioids or not chronically receiving opioids on a daily basis. *PRN dosing is not "usually" associated with tolerance. *Patients are at higher risk of over-sedation and aspiration. What is Opioid Tolerant?: *Opioid Tolerance implies less than the expected response to an opioid. *Acquired tolerance is defined by the patient taking 60mg of oral morphine daily (or equianalgesic dose of another opioid) for 1 week or more. *Often associated with chronic pain. *May take more than usual dose to achieve desired pain control. Miscellaneous Complaint Exam Physical Examination Complaint/Exam Onset/Duration: Today Symptoms Are: Still present Timing: Constant Initial Severity: Mild Current Severity: None Review of Systems Review Of Systems Constitutional: Reports Malaise Eyes: Reports No symptoms Ears, Nose, Mouth, Throat: Reports No symptoms Respiratory: Reports No symptoms Cardiac: Reports No symptoms GI: Reports No symptoms : Reports No symptoms Musculoskeletal: Reports Muscle pain Skin: Reports No symptoms Neurological: Reports No symptoms Endocrine: Reports No symptoms Hematologic/Lymphatic: Reports No symptoms All Other Systems: Reviewed and Negative [facility] Medical History Blood bacterial culture positive R78.81 - Bacteremia (ICD-10) Hypertension I10 - Essential (primary) hypertension (ICD-10) Right thumb amputee Z89.011 - Acquired absence of right thumb (ICD-10) Vaginal infection N76.0 - Acute vaginitis (ICD-10) Family History SISTER Diabetes Grandfather/Grandmother Diabetes FATHER Alcohol abuse Mother Hypertension Social History Smoking and tobacco status: Never smoker Alcohol intake: never Counseling given: No Substance use type: amphetamines and methamphetamine Kim/mandaen: NONE Household members: spouse and children Marital status: M Lives independently: Yes Number of children: 1 Number of grandchildren: 0 Highest education level completed: some college, no degree Current occupational status: employed Do you think of yourself as: straight/heterosexual Current gender identity: female Seatbelt use: always Helmet use: No Drives intoxicated or rides with intoxicated otr refrigerated cdl truck driver: No Water heater temperature set < 120 degrees: Yes Working smoke detector in home: Yes Fire extinguisher in home: Yes Carbon monoxide detector in home: Yes Firearms in home: No Surgical History H/O elbow surgery Z98.890 - Other specified postprocedural states (ICD-10) History of section Z98.891 - History of uterine scar from previous surgery (ICD-10) History of hand surgery Z98.890 - Other specified postprocedural states (ICD-10) Female Reproductive History Menstrual Hx Hysterectomy: No Hx Tubal Ligation: No Physical Exam Physical Exam Appearance: Reports Well-appearing, No pain distress and Well-nourished Ill-appearing: None Pain Distress: None Eyes: Reports Not Examined ENT: Reports Not Examined Neck: Supple Respiratory: Reports Airway patent, Breath sounds clear, Breath sounds equal and Respirations nonlabored Cardiovascular: Reports RRR, Pulses normal, No rub and No murmur GI/: Reports Soft, Nontender, No masses, Bowel sounds normal and No Organomegaly Musculoskeletal: Reports Normal strength and ROM intact Skin: Reports Warm, Dry and Normal color Neurological: Reports Sensation intact, Motor intact, Reflexes intact, Cranial nerves intact, Alert and Oriented Psychiatric: Reports Anxious Critical Care Note Critical Care Note Total Critical Care Time (mins): 60 Comments: Patient here with hyponatremia hyperglycemia. Treatment started with IV antibiotics and insulin and patient was transferred to the floor. Course Course 10/09/23 11:35 10/09/23 11:35 Orders, Labs, Meds: Lab Review 10/09/23 10/09/23 10/09/23 11:35 12:25 12:47 WBC 16.05 H RBC 4.17 L Hgb 12.9 Hct 39.5 MCV 94.7 MCH 30.9 MCHC 32.7 RDW Coeff of Tawny 12.1 Plt Count 220 Immature Gran % (Auto) 1.0 Neut % (Auto) 89.3 H Lymph % (Auto) 1.6 L [place] % (Auto) 7.6 Eos % (Auto) 0.1 Baso % (Auto) 0.4 Neut # (Auto) 14.3 H Lymph # (Auto) 0.3 L [place] # (Auto) 1.2 Eos # (Auto) 0.0 Baso # (Auto) 0.1 Immature Gran # (Auto) 0.2 Sodium 116.6 L* Potassium 4.32 Chloride 77.6 L Carbon Dioxide 30.8 H Anion Gap 12.52 BUN 22.2 H Creatinine 0.77 Estimated GFR (MDRD) 82.00 BUN/Creatinine Ratio 28.83 Glucose 738.7 H* Calcium 8.43 Total Bilirubin 1.19 AST 27.2 ALT 18.3 Alkaline Phosphatase 212.1 H D Total Protein 7.14 Albumin 3.52 Globulin 3.62 Albumin/Globulin Ratio 0.97 Urine Color Light Urine Clarity Cloudy Urine pH 5.5 Ur Specific [place] <=1.005 Urine Protein Negative Urine Glucose (UA) 2+ H Urine Ketones Negative Urine Blood 2+ H Urine Nitrite Positive H Urine Bilirubin Negative Urine Urobilinogen 0.2 Ur Leukocyte Esterase 1+ H Urine Microscopic RBC 10-20 Urine Microscopic WBC 20-30 Ur Squamous Epith Cells 0-2 Urine Bacteria 2+ Urine Opiates Screen Negative Ur Oxycodone Screen Negative Urine Methadone Screen Negative Ur Barbiturates Screen Negative U Tricyclic Antidepress Negative Ur Phencyclidine Scrn Negative Ur Amphetamine Screen Positive H U Methamphetamines Scrn Positive H U Benzodiazepines Scrn Negative Urine Cocaine Screen Negative U Cannabinoids Screen Negative Acetone, Qual None SARS CoV-2 RNA Rapid CIRILO Negative Orders Category Date Time Status ADMIT PATIENT INPATIENT .TO [facility] (MONITORED BED) ADMISSION 10/09/23 12:19 Active ACTIVITY .Early Mobilization for VTE Prevention CARE 10/09/23 12:34 Active INTAKE & OUTPUT Q8HR CARE 10/09/23 12:34 Active IP: INSERT SALINE LOCK ONCE CARE 10/09/23 12:18 Active TELEMETRY MONITORING TELE CARE 10/09/23 12:19 Active VITAL SIGNS Q8HR CARE 10/09/23 12:34 Active ACETONE, QUALITATIVE Routine LAB 10/09/23 11:35 Completed CBC W/ AUTO DIFF DAILY@0600 LAB 10/10/23 06:00 Ordered CBC W/ AUTO DIFF DAILY@0600 LAB 10/11/23 06:00 Ordered CBC W/ AUTO DIFF Stat LAB 10/09/23 11:35 Completed CMP [COMPREHENSIVE METABOLIC PANEL] Stat LAB 10/09/23 11:35 Completed COMPREHENSIVE METABOLIC PANEL DAILY@0600 LAB 10/10/23 06:00 Ordered COMPREHENSIVE METABOLIC PANEL DAILY@0600 LAB 10/11/23 06:00 Ordered DRUG SCREEN, URINE, RAPID Stat LAB 10/09/23 12:47 Completed OSMOLALITY,URINE Routine LAB 10/09/23 12:47 Received SARS COV-2 RNA RAPID CIRILO Stat LAB 10/09/23 12:25 Completed SERUM OSMOLALITY Routine LAB 10/09/23 12:47 Received URINALYSIS C & S IF INDICATED Stat LAB 10/09/23 12:47 Completed URINE CULTURE Stat LAB 10/09/23 12:47 Received VENOUS BLOOD GAS Routine LAB 10/09/23 12:32 Ordered Enoxaparin Sodium [Lovenox] Meds 10/10/23 09:00 Active 40 mg SUBCUT DAILY Insulin Regular, Human [Humulin R (10Ml)] Meds 10/09/23 12:17 Discontinued 10 unit IVP ONCE STA Sodium Chloride 0.9% [Sodium Chloride] 1,000 ml Meds 10/09/23 12:17 Active IV BOLUS CHEST, 2 VIEWS PA & LAT Stat RADS 10/09/23 12:32 Completed Medications Generic Name Dose Route Start Last Admin Trade Name Freq PRN Reason Stop Dose Admin Enoxaparin Sodium 40 mg 10/10/23 09:00 Enoxaparin Sodium 40 Mg/0.4 Ml Syr SUBCUT DAILY [place]ON Sodium Chloride 1,000 mls @ 250 mls/hr 10/09/23 12:17 10/09/23 12:40 Sodium Chloride IV 10/09/23 16:16 250 mls/hr BOLUS STA Administration Sodium Chloride 1,000 mls @ 125 mls/hr 10/09/23 13:30 Sodium Chloride IV .Q8H [place]ON CEFTRIAXONE/D5W 1 GM PREMIX 1 gm in 50 mls @ 100 mls/hr 10/09/23 13:30 Rocephin 1 Gm/50 Ml D5w IV 10/12/23 13:29 DAILY [place]ON Insulin Human Regular 0 unit 10/09/23 13:29 Insulin Regular, Human 100 Unit/Ml (10ml) Vial SUBCUT PRN PRN Hyperglycemia Protocol Discontinued Medications Generic Name Dose Route Start Last Admin Trade Name Freq PRN Reason Stop Dose Admin Insulin Human Regular 10 unit 10/09/23 12:17 10/09/23 12:41 Insulin Regular, Human 100 Unit/Ml (10ml) Vial IVP 10/09/23 12:18 10 unit ONCE STA Administration Vital Signs: Temp Pulse Resp BP Pulse Ox 10/09/23 11:16 98.4 F 117 H 20 119/72 93 L Patient is here reporting that she went to her physician's office yesterday and had a little blood test. Her doctor called her this morning and told her that she had abnormal labs and needed to come to the ER for further evaluation. Patient said that she had an Negative COVID test but does not remember what other labs were performed. She went to her doctor's office complaining of dizziness and muscle pain. Discharge Plan Discharge Patient Disposition: ADMITTED INPATIENT Discharge Problem: Hyponatremia, Hyperglycemia due to type 2 diabetes mellitus Did you review [place] V[employer]IN[employer] INSPECTOR for ALL controlled substances?: Not Applicable ED Provider: MILTON WILLINGHAM Condition: Stable Physician Progress Note: I ordered CBC, CMP, urinalysis and UDS. Her sodium is low at 116.6 and her blood sugar is elevated at 738.7. I ordered IV fluids at a rate of 250 mL/h and and 10 units of insulin. I called Nurse Practitioner, Ms. Middleton, to have patient admitted. She excepted patient for admission. I told patient what her plans were and she agrees to this plan.
[2023-10-09 11:41] LABS: BASOPHILS # (AUTO) 0.1 K/uL (0-0.2); BASOPHILS % (AUTO) 0.4 % (0.0-3.0); EOSINOPHILS % (AUTO) 0.1 % (0.0-7.0); HEMATOCRIT 39.5 % (37.0-47.0); HEMOGLOBIN 12.9 g/dl (12.0-16.0); IMMATURE GRANULOCYTE # (AUTO) 0.2 (0.0-1.0); LYMPHOCYTES # (AUTO) 0.3 K/uL (0.60-3.4); LYMPHOCYTES % (AUTO) 1.6 (10.0-50.0); MEAN CORPUSCULAR HEMOGLOBIN 30.9 pg (27.0-31.0); MEAN CORPUSCULAR HGB CONC 32.7 (31.8-35.4); MEAN CORPUSCULAR VOLUME 94.7 fl (81.0-99.0); MONOCYTES # (AUTO) 1.2 K/uL (0.4-2.0); MONOCYTES % (AUTO) 7.6 (0-10); NEUTROPHILS # (AUTO) 14.3 K/ul (2.0-6.9); NEUTROPHILS % (AUTO) 89.3 % (42.2-75.2); PLATELET COUNT 220 10^3/uL (140-440); RDW COEFFICIENT OF VARIATION 12.1 % (11.6-14.8); RED BLOOD COUNT 4.17 10^6/ul (4.20-5.40); WHITE BLOOD COUNT 16.05 K/ul (4.6-10.2)
[2023-10-09 12:00] LABS: ALANINE AMINOTRANSFERASE 18.3 U/L (0-35); ALBUMIN 3.52 g/dL (3.5-5.0); ALKALINE PHOSPHATASE 212.1 U/L (38-126); ASPARTATE AMINO TRANSFERASE 27.2 U/L (14-36); BILIRUBIN,TOTAL 1.19 mg/dL (0.2-1.3); BLOOD UREA NITROGEN 22.2 mg/dL (7-17); CALCIUM 8.43 mg/dL (8.4-10.2); CARBON DIOXIDE 30.8 mmol/L (22-30.0); CHLORIDE 77.6 mmol/L (98-107); CREATININE 0.77 mg/dL (0.60-1.30); POTASSIUM 4.32 mmol/L (3.5-5.1); TOTAL PROTEIN 7.14 g/dL (6.3-8.2)
[2023-10-09 12:09] LABS: GLUCOSE 738.7 mg/dL (74-106); SODIUM 116.6 mmol/L (134.5-145)
[2023-10-09] MEDS: SODIUM CHLORIDE 1,000 ML IV STA (12:40)
[2023-10-09] MEDS: HUMULIN R (10ML) IVP STA (12:41)
[2023-10-09 12:44] LABS: SARS COV-2 RNA RAPID NAAT NEGATIVE (NEGATIVE)
[2023-10-09 13:05] LABS: BILIRUBIN,URINE Negative (NEGATIVE); CLARITY,URINE Cloudy (CLEAR); COLOR,URINE Light (YELLOW); GLUCOSE, URINE (UA) 2+ (NEGATIVE); KETONES,URINE Negative (NEGATIVE); LEUKOCYTE ESTERASE ,URINE 1+ (NEGATIVE); NITRITE,URINE Positive (NEGATIVE); PH,URINE 5.5 (5-9); PROTEIN,URINE Negative (NEGATIVE); URINE, BLOOD 2+ (NEGATIVE); UROBILINOGEN,URINE 0.2 (0.2)
--- NOTE | 2023-10-09 13:08 | DI ---
EXAM: CHEST FRONTAL AND LATERAL VIEWS HISTORY: Elevated WBC count COMPARISON: None FINDINGS: Heart size and mediastinal contour within normal limits. No acute infiltrates. Madhuri l vascularity with no pleural fluid or pneumothorax. No suspicious pulmonary opacities or nodules. The bony thorax has no acute finding. IMPRESSION: No acute cardiopulmonary process.
[2023-10-09 13:16] LABS: AMPHETAMINE SCREEN,URINE POSITIVE (NEGATIVE); BARBITURATE SCREEN,URINE NEGATIVE (NEGATIVE); METHAMPHETAMINES SCREEN,URINE POSITIVE (NEGATIVE); OPIATE SCREEN,URINE NEGATIVE (NEGATIVE); PHENCYCLIDINE SCREEN,URINE NEGATIVE (NEGATIVE)
[2023-10-09 13:17] LABS: BENZODIAZEPINES SCREEN,URINE NEGATIVE (NEGATIVE); CANNABINOID SCREEN,URINE NEGATIVE (NEGATIVE); COCAIN SCREEN,URINE NEGATIVE (NEGATIVE); METHADONE URINE SCREEN NEGATIVE (NEGATIVE); OXYCODONE URINE SCREEN NEGATIVE (NEGATIVE); TRICYCLIC ANTIDEPRESSANTS URIN NEGATIVE (NEGATIVE)
[2023-10-09 13:20] LABS: SQUAMOUS EPITHELIAL CELL,UR 0-2 (0-5); URINE WBC, MICROSCOPIC 20-30 (0-2)
[2023-10-09 13:21] LABS: BACTERIA,URINE 2+ (NOT PRESENT)
--- NOTE | 2023-10-09 13:44 | PCM ---
Date of Service Date Seen by Provider: 10/09/23 Time Seen by Provider: 13:30 Admit Day/Time Admission Date: 10/09/23 Admission Time: 12:15 Reason for Admission Chief Complaint: HYPONATREMIA, HYPERGLYCEMIA Hospital Provider Hospital Provider[place] [facility] [place] Primary Care Physician: RADU HERRERA APRN History of Present Illness History of Present Illness: 42 yo female with pmh of DMT2, hypertension, GERD, and methamphetamine use presented to the ER for abnormal labs. Patient saw her PCP yesterday for complaints of dizziness and body aches. She was Covid tested that was negative. CMP showed sodium in 120s and glucose in 500s. She was instructed to go to the ER once results were reviewed. Patient states that she is dizzy upon standing, sensitive to bright lights, and her muscles ache all over. Denies any vomiting, diarrhea, fever, urinary symptoms, or other complaints. States that she has been out of her medications over the last 2 months and has not "been able to afford them". Admits to meth use with last time being yesterday. Typically uses 2-3 times a week. Today, sodium was found to be 116, glucose >700, WBC 16, and UA noted for UTI. She was started on NS@250mL/hr x 1 liter and given 10 units of regular insulin. Admitted to Med/Surg Inpatient. Case Discussed With Case Discussed With: Patient's case was discussed with the ER Physicians, Dr. Ruff. [facility] Medical History (Updated 10/09/23 @ 13:45 by MURPHY PATEL) Type 2 diabetes mellitus with hemoglobin A1c goal of less than 7.0% E11.9 - Type 2 diabetes mellitus without complications (ICD-10) Blood bacterial culture positive R78.81 - Bacteremia (ICD-10) Right thumb amputee Z89.011 - Acquired absence of right thumb (ICD-10) Hypertension I10 - Essential (primary) hypertension (ICD-10) Vaginal infection vaginal cyst lanced N76.0 - Acute vaginitis (ICD-10) Surgical History H/O elbow surgery Z98.890 - Other specified postprocedural states (ICD-10) History of hand surgery Z98.890 - Other specified postprocedural states (ICD-10) History of section Z98.891 - History of uterine scar from previous surgery (ICD-10) Family History SISTER Diabetes Grandfather/Grandmother Diabetes FATHER Alcohol abuse Mother Hypertension Social History Smoking and tobacco status: Never smoker Alcohol intake: never Counseling given: No Substance use type: amphetamines and methamphetamine Kim/restoration: NONE Household members: spouse and children Marital status: M Lives independently: Yes Number of children: 1 Number of grandchildren: 0 Highest education level completed: some college, no degree Current occupational status: employed Do you think of yourself as: straight/heterosexual Current gender identity: female Seatbelt use: always Helmet use: No Drives intoxicated or rides with intoxicated logging truck driver: No Water heater temperature set < 120 degrees: Yes Working smoke detector in home: Yes Fire extinguisher in home: Yes Carbon monoxide detector in home: Yes Firearms in home: No Allergies Allergies Allergy/AdvReac Type Severity Reaction Status Date / Time peanut AdvReac Anaphylaxis Verified 10/09/23 11:14 sunflowers seeds Allergy Severe difficulty Uncoded 10/09/23 11:14 breathing, Itching and burning all over. Current Medications Home Medications insulin glargine 100 unit/mL subcutaneous solution (Lantus U-100 Insulin) 20 unit (0.2 mL) subcut QDAY #10 mL 01/08/23 [Rx Confirmed 10/09/23 Last Taken Unknown] pen needle, diabetic 31 gauge x 5/16" (Easy Comfort Pen [place]) #100 ea 1 03/10/22 [Rx Confirmed 04/13/23 Last Taken Unknown] dapagliflozin propanediol 10 mg tablet (Farxiga) 10 mg PO BEDTIME #30 tabs 04/07/23 [Rx Confirmed 10/09/23 Last Taken Unknown] dicyclomine 10 mg capsule 10 mg PO BID #60 caps 04/07/23 [Rx Confirmed 10/09/23 Last Taken Unknown] lisinopril 10 mg tablet See Rx Instructions .Route .COMPLEX #30 tabs 04/07/23 [Rx Confirmed 10/09/23 Last Taken Unknown] mupirocin 2 % topical ointment 1 applic topical TID #22 grams 04/07/23 [Rx Confirmed 10/09/23 Last Taken Unknown] ondansetron HCl 8 mg tablet 8 mg PO Q8H PRN nausea and vomiting #30 tabs 04/07/23 [Rx Confirmed 10/09/23 Last Taken Unknown] pantoprazole 40 mg tablet,delayed release (Protonix) 40 mg PO QDAY 30 days #30 tabs 04/07/23 [Rx Confirmed 10/09/23 Last Taken Unknown] dicyclomine 20 mg tablet 20 mg PO QID PRN abdominal pain #20 tabs 07/31/23 [Rx Confirmed 10/09/23 Last Taken Unknown] pantoprazole 20 mg tablet,delayed release (Protonix) 20 mg PO DAILY #30 tabs 07/31/23 [Rx Confirmed 10/09/23 Last Taken Unknown] Home Enoxaparin Sodium (Enoxaparin Sodium 40 Mg/0.4 Ml Syr) 40 mg SUBCUT DAILY ALLYSON Sodium Chloride (Sodium Chloride) 1,000 mls @ 250 mls/hr IV BOLUS STA Stop: 10/09/23 16:16 Last Admin: 10/09/23 12:40 Dose: 250 mls/hr Sodium Chloride (Sodium Chloride) 1,000 mls @ 125 mls/hr IV .Q8H ALLYSON CEFTRIAXONE/D5W 1 GM PREMIX (Rocephin 1 Gm/50 Ml D5w) 1 gm in 50 mls @ 100 mls/hr IV DAILY ALLSYON Stop: 10/12/23 13:29 Insulin Human Regular (Insulin Regular, Human 100 Unit/Ml (10ml) Vial) 0 unit SUBCUT PRN PRN; Protocol PRN Reason: Hyperglycemia Discontinued Medications Insulin Human Regular (Insulin Regular, Human 100 Unit/Ml (10ml) Vial) 10 unit IVP ONCE STA Stop: 10/09/23 12:18 Last Admin: 10/09/23 12:41 Dose: 10 unit Opioid Naive vs. Tolerant Does Patient Take Opioids?: No Is Patient Opioid Naive?: Yes What is Opioid Naive?: *Opioid Naive implies the patient is not already taking opioids or not chronically receiving opioids on a daily basis. *PRN dosing is not "usually" associated with tolerance. *Patients are at higher risk of over-sedation and aspiration. Is Patient Opioid Tolerant?: No What is Opioid Tolerant?: *Opioid Tolerance implies less than the expected response to an opioid. *Acquired tolerance is defined by the patient taking 60mg of oral morphine daily (or equianalgesic dose of another opioid) for 1 week or more. *Often associated with chronic pain. *May take more than usual dose to achieve desired pain control. Review of Systems Constitutional: Reports Fatigue Head: Reports Normocephalic and Atraumatic Eyes: Reports No symptoms Ears: Reports No symptoms Nose: Reports No symptoms Mouth: Reports No symptoms Throat: Reports No symptoms Cardiovascular: Reports No symptoms Respiratory: Reports No symptoms Gastrointestinal: Reports No symptoms Genitourinary: Reports No Symptoms Musculoskeletal: Reports No symptoms Endocrine: Reports No symptoms Hematology: Reports No symptoms Immunology: Reports No symptoms Neurological: Reports Dizziness Psychiatric: Reports No symptoms Physical examination Most Recent Vital Signs: Most Recent Vital Signs Temperature 98.4 F 10/09/23 11:16 Temperature Source Infrared 10/09/23 11:16 Pulse Rate 104 H 10/09/23 13:22 Respiratory Rate 20 10/09/23 11:16 Blood Pressure 118/70 10/09/23 13:22 O2 Sat by Pulse Oximetry 93 L 10/09/23 11:16 Height 5 ft 2 in 10/09/23 11:16 Weight 146 lb 9.718 oz 10/09/23 11:16 Telemetry Heart Rate 87 03/27/21 07:00 Appearance: Positive No Apparent Distress, Alert and Oriented x3 and Ill- Appearing Skin: Positive Warm HEENT: Positive Normocephalic and Atraumatic Neck: Positive Supple and Midline Trachea Chest/Lungs: Positive Symmetrical With Equal Breath Sounds, Clear to Auscultation Bilaterally and Good Air Movement all 4 Lung Garcia Heart: Positive Pulses Normal, Tachycardia, No S3 Auscultated and No S4 Auscultated GI/: Positive Soft, Nontender, Bowel Sounds Normal and No Distention Musculoskeletal: Positive Not Examined Extremities: Positive Intact Peripheral Pulses, Stable Joints Without Laxity and Good ROM in All Joints Neurological: Positive Sensation Intact, Motor intact, Alert and Oriented Labs This Visit Labs This Visit: Labs This Visit 10/09/23 10/09/23 10/09/23 11:35 12:25 12:47 WBC 16.05 H RBC 4.17 L Hgb 12.9 Hct 39.5 MCV 94.7 MCH 30.9 MCHC 32.7 RDW Coeff of Tawn[place] 12.1 Plt Count 220 Immature Gran % (Auto) 1.0 Neut % (Auto) 89.3 H Lymph % (Auto) 1.6 L [place] % (Auto) 7.6 Eos % (Auto) 0.1 Baso % (Auto) 0.4 Neut # (Auto) 14.3 H Lymph # (Auto) 0.3 L [place] # (Auto) 1.2 Eos # (Auto) 0.0 Baso # (Auto) 0.1 Immature Gran # (Auto) 0.2 Sodium 116.6 L* Potassium 4.32 Chloride 77.6 L Carbon Dioxide 30.8 H Anion Gap 12.52 BUN 22.2 H Creatinine 0.77 Estimated GFR (MDRD) 82.00 BUN/Creatinine Ratio 28.83 Glucose 738.7 H* Calcium 8.43 Total Bilirubin 1.19 AST 27.2 ALT 18.3 Alkaline Phosphatase 212.1 H D Total Protein 7.14 Albumin 3.52 Globulin 3.62 Albumin/Globulin Ratio 0.97 Urine Color Light Urine Clarity Cloudy Urine pH 5.5 Ur Specific [place] <=1.005 Urine Protein Negative Urine Glucose (UA) 2+ H Urine Ketones Negative Urine Blood 2+ H Urine Nitrite Positive H Urine Bilirubin Negative Urine Urobilinogen 0.2 Ur Leukocyte Esterase 1+ H Urine Microscopic RBC 10-20 Urine Microscopic WBC 20-30 Ur Squamous Epith Cells 0-2 Urine Bacteria 2+ Urine Opiates Screen Negative Ur Oxycodone Screen Negative Urine Methadone Screen Negative Ur Barbiturates Screen Negative U Tricyclic Antidepress Negative Ur Phencyclidine Scrn Negative Ur Amphetamine Screen Positive H U Methamphetamines Scrn Positive H U Benzodiazepines Scrn Negative Urine Cocaine Screen Negative U Cannabinoids Screen Negative Acetone, Qual None SARS CoV-2 RNA Rapid CIRILO Negative Imaging Imaging: EXAM: CHEST FRONTAL AND LATERAL VIEWS HISTORY: Elevated WBC count COMPARISON: None FINDINGS: Heart size and mediastinal contour within normal limits. No acute infiltrates. Normal vascularity with no pleural fluid or pneumothorax. No suspicious pulmonary opacities or nodules. The bony thorax has no acute finding. IMPRESSION: No acute cardiopulmonary process. Review Statement Review Statement: I have independently reviewed and interpreted the labs/EKGs/imaging that were ordered by the ER provider. I have reviewed all outside records that are available currently in our EMR including imaging/notes/labs from previous visits. Plan Plan: 1. Severe Symptomatic Hyponatremia - likely due to chronic meth use; Na 116 currently, NS@125mL/hr, telemetry, serial BMP to monitor, osmolalities pending 2. Hyperglycemia in setting of uncontrolled DMT2 - accuchecks Q1H with ssi - will adjust as glucose improves, no DKA noted, will check A1c, resume home regimen 3. UTI - leukocytosis noted with left shift, rocephin 1G Q24H, urine culture pending 4. Hypertension - chronic, uncontrolled, resume home medications 5. GERD - chronic, resume home medications 6. Methamphetamine abuse - likely contributing to #1, discussed cessation and harmful effects DVT Prophylaxis: Lovenox Time Spent: Greater than 80 minutes spent with patient, 50% of the time spent with this patient was devoted to counseling and coordination of care. [facility] Plannin minutes spent discussing advance care planning. Disposition: Admit to: Med/surg Inpatient Full Code Discussed Plan of Care with Dr. Zach Gottlieb. Medications Medication Orders: Medications Ordered Category Date Time Status Ceftriaxone/D5w 1 gm Premix [Rocephin 1 gm/50 ml D5w] Meds 10/09/23 13:30 Active 1 gm in 50 ml IV DAILY Enoxaparin Sodium [Lovenox] Meds 10/10/23 09:00 Active 40 mg SUBCUT DAILY Insulin Regular, Human [Humulin R (10Ml)] Meds 10/09/23 13:29 Active See Protocol SUBCUT PRN PRN Sodium Chloride 0.9% [Sodium Chloride] 1,000 ml Meds 10/09/23 13:30 Active IV 125 mls/hr Sodium Chloride 0.9% [Sodium Chloride] 1,000 ml Meds 10/09/23 12:17 Active IV BOLUS
[2023-10-09 13:56] VITALS: BMI 26.0
[2023-10-09] MEDS: ROCEPHIN 1 GM/50 ML D5W 1 GM/50 ML BAG IV SCH (14:09)
[2023-10-09] MEDS: HUMULIN R (10ML) SUBCUT PRN (14:25)
[2023-10-09] MEDS: LANTUS SUBCUT SCH (15:06)
[2023-10-09] MEDS: PROTONIX PO SCH (15:11)
[2023-10-09] MEDS: TYLENOL PO PRN (15:11)
[2023-10-09] MEDS: SODIUM CHLORIDE 1,000 ML IV SCH (16:41)
[2023-10-09 20:12] LABS: BLOOD UREA NITROGEN 18.1 mg/dL (7-17); CALCIUM 8.05 mg/dL (8.4-10.2); CARBON DIOXIDE 30.1 mmol/L (22-30.0); CHLORIDE 89.4 mmol/L (98-107); CREATININE 0.67 mg/dL (0.60-1.30); GLUCOSE 287.2 mg/dL (74-106); POTASSIUM 3.57 mmol/L (3.5-5.1); SODIUM 126.5 mmol/L (134.5-145)
[2023-10-09] MEDS: BENTYL PO SCH (20:20)
[2023-10-10] MEDS: ZOFRAN 4 MG/2 ML IVP ONE (02:14)
[2023-10-10 05:16] LABS: BASOPHILS % (AUTO) 0.2 % (0.0-3.0); EOSINOPHILS % (AUTO) 0.2 % (0.0-7.0); HEMATOCRIT 38.2 % (37.0-47.0); HEMOGLOBIN 12.9 g/dl (12.0-16.0); IMMATURE GRANULOCYTE # (AUTO) 0.2 (0.0-1.0); LYMPHOCYTES # (AUTO) 0.9 K/uL (0.60-3.4); LYMPHOCYTES % (AUTO) 5.3 (10.0-50.0); MEAN CORPUSCULAR HEMOGLOBIN 30.9 pg (27.0-31.0); MEAN CORPUSCULAR HGB CONC 33.8 (31.8-35.4); MEAN CORPUSCULAR VOLUME 91.4 fl (81.0-99.0); MONOCYTES # (AUTO) 1.4 K/uL (0.4-2.0); MONOCYTES % (AUTO) 8.8 (0-10); NEUTROPHILS # (AUTO) 13.7 K/ul (2.0-6.9); NEUTROPHILS % (AUTO) 84.5 % (42.2-75.2); PLATELET COUNT 252 10^3/uL (140-440); RDW COEFFICIENT OF VARIATION 12.1 % (11.6-14.8); RED BLOOD COUNT 4.18 10^6/ul (4.20-5.40); WHITE BLOOD COUNT 16.29 K/ul (4.6-10.2)
[2023-10-10 05:22] LABS: ALANINE AMINOTRANSFERASE 15.1 U/L (0-35); ALBUMIN 3.16 g/dL (3.5-5.0); ALKALINE PHOSPHATASE 188.4 U/L (38-126); ASPARTATE AMINO TRANSFERASE 25.9 U/L (14-36); BILIRUBIN,TOTAL 0.88 mg/dL (0.2-1.3); BLOOD UREA NITROGEN 12.4 mg/dL (7-17); CALCIUM 8.18 mg/dL (8.4-10.2); CARBON DIOXIDE 28.2 mmol/L (22-30.0); CHLORIDE 96.1 mmol/L (98-107); CREATININE 0.53 mg/dL (0.60-1.30); GLUCOSE 268.3 mg/dL (74-106); POTASSIUM 3.42 mmol/L (3.5-5.1); SODIUM 131.7 mmol/L (134.5-145); TOTAL PROTEIN 6.71 g/dL (6.3-8.2)
[2023-10-10] MEDS: SODIUM CHLORIDE 1,000 ML IV SCH (06:48)
[2023-10-10] MEDS: ZOFRAN 4 MG/2 ML IVP PRN (08:12)
[2023-10-10] MEDS: LOVENOX SUBCUT SCH (08:48)
[2023-10-10] MEDS: K-DUR PO ONE (08:48)
[2023-10-10] MEDS: ZESTRIL PO SCH (08:48)
--- NOTE | 2023-10-10 09:12 | PCM.PROG ---
Date/Time Seen Date Seen by Provider: 10/10/23 Time Seen by Provider: 08:40 Provider [facility] Chief Complaint Chief Complaint: HYPONATREMIA, HYPERGLYCEMIA Subjective Subjective: Began vomiting around 1 am last night. No abdominal pain or associated symptoms. Has required zofran that has been mildly effective. Began wretching again around 9 am. Reglan and zofran both ordered. RN noted patient has been drinking excessive amounts of water all night. Discussed with patient what her normal water intake is and reports about half a case of 32 bottled stahl in addition to 1-2 diet sunkist sodas. BP has also been mildly elevated, was unable to take oral medication this am without vomiting. Objective Appearance: Positive No Apparent Distress, Alert and Oriented x3 and Ill- Appearing Chest/Lungs: Positive Symmetrical With Equal Breath Sounds, Clear to Auscultation Bilaterally and Good Air Movement all 4 Lung Garcia Heart: Positive RRR and Pulses Normal GI/: Positive Soft, Nontender, Bowel Sounds Normal and No Distention Musculoskeletal: Positive Not Examined Neurological: Positive Sensation Intact, Motor intact, Alert, Oriented and Muscle Strength 5/5 in Upper and Lower Extremities Bilaterally Vital Signs Vital Signs: Vital Signs: Last 24 Hours 10/09/23 11:16 10/09/23 13:22 10/09/23 13:31 Temperature 98.4 F 97.6 F Temperature Source Infrared Oral Pulse Rate 117 H 104 H 103 H Respiratory Rate 20 18 Blood Pressure 119/72 118/70 Blood Pressure Mean Blood Pressure Right Arm 139/90 Blood Pressure Location Blood Pressure Position Supine O2 Sat by Pulse Oximetry 93 L 93 L Oxygen Delivery Method Room Air Fraction of Inspired Oxygen (FIO2) Height 5 ft 2 in 5 ft 2 in Weight 146 lb 9.718 oz 142 lb 4.8 oz Telemetry Type Telemetry Monitoring Telemetry Heart Rate EKG MI Interval EKG QRS Interval Telemetry Strip Reading 10/09/23 13:32 10/09/23 18:05 10/09/23 19:00 Temperature 98.3 F Temperature Source Temporal Artery Scan Pulse Rate 97 Respiratory Rate 16 Blood Pressure 97/66 Blood Pressure Mean 76 Blood Pressure Right Arm Blood Pressure Location Right Arm Blood Pressure Position Sitting O2 Sat by Pulse Oximetry 97 Oxygen Delivery Method Room Air Fraction of Inspired Oxygen (FIO2) Height Weight Telemetry Type Remote Telemetry Remote Telemetry Telemetry Monitoring Started Continues Telemetry Heart Rate 104 H 97 EKG MI Interval 0.23 H 0.19 EKG QRS Interval 0.08 0.08 Telemetry Strip Reading S.Tach with 1st Degree AVB nsr 10/09/23 23:58 10/10/23 01:00 10/10/23 01:40 Temperature 97.8 F 97.9 F Temperature Source Temporal Artery Scan Temporal Artery Scan Pulse Rate 102 H 104 H Respiratory Rate 16 20 Blood Pressure 141/78 H 157/94 H Blood Pressure Mean 99 115 Blood Pressure Right Arm Blood Pressure Location Right Arm Left Arm Blood Pressure Position Supine Supine O2 Sat by Pulse Oximetry 94 L Oxygen Delivery Method Room Air Room Air Fraction of Inspired Oxygen (FIO2) 94 Height Weight Telemetry Type Remote Telemetry Telemetry Monitoring Continues Telemetry Heart Rate 104 H EKG MI Interval 0.20 EKG QRS Interval 0.[address] 10/10/23 02:15 10/10/23 05:14 10/10/23 07:00 Temperature 98.2 F Temperature Source Oral Pulse Rate 100 Respiratory Rate 18 Blood Pressure 169/94 H 165/97 H Blood Pressure Mean 119 119 Blood Pressure Right Arm Blood Pressure Location Left Arm Blood Pressure Position O2 Sat by Pulse Oximetry 95 Oxygen Delivery Method Room Air Room Air Fraction of Inspired Oxygen (FIO2) Height Weight Telemetry Type Remote Telemetry Telemetry Monitoring Continues Telemetry Heart Rate 97 EKG MI Interval 0.17 EKG QRS Interval 0.08 Telemetry Strip Reading R 10/10/23 08:00 Temperature Temperature Source Pulse Rate Respiratory Rate 18 Blood Pressure Blood Pressure Mean Blood Pressure Right Arm Blood Pressure Location Blood Pressure Position O2 Sat by Pulse Oximetry Oxygen Delivery Method Fraction of Inspired Oxygen (FIO2) Height Weight Telemetry Type Telemetry Monitoring Telemetry Heart Rate EKG MI Interval EKG QRS Interval Telemetry Strip Reading Lab Results Lab Results: Lab Results: Last 24 Hours 10/10/23 10/09/23 10/09/23 05:00 20:00 12:47 WBC 16.29 H RBC 4.18 L Hgb 12.9 Hct 38.2 MCV 91.4 MCH 30.9 MCHC 33.8 RDW Coeff of Tawny 12.1 Plt Count 252 Immature Gran % (Auto) 1.0 Neut % (Auto) 84.5 H Lymph % (Auto) 5.3 L [place] % (Auto) 8.8 Eos % (Auto) 0.2 Baso % (Auto) 0.2 Neut # (Auto) 13.7 H Lymph # (Auto) 0.9 [place] # (Auto) 1.4 Eos # (Auto) 0.0 Baso # (Auto) 0.0 Immature Gran # (Auto) 0.2 Sodium 131.7 L 126.5 L Potassium 3.42 L 3.57 Chloride 96.1 L 89.4 L Carbon Dioxide 28.2 30.1 H Anion Gap 10.82 10.57 BUN 12.4 18.1 H Creatinine 0.53 L 0.67 Estimated GFR (MDRD) 126.00 96.00 BUN/Creatinine Ratio 23.39 27.01 Glucose 268.3 H 287.2 H D Calcium 8.18 L 8.05 L Magnesium 1.84 Total Bilirubin 0.88 AST 25.9 ALT 15.1 Alkaline Phosphatase 188.4 H Total Protein 6.71 Albumin 3.16 L Globulin 3.55 Albumin/Globulin Ratio 0.89 Urine Color Light Urine Clarity Cloudy Urine pH 5.5 Ur Specific [place] <=1.005 Urine Protein Negative Urine Glucose (UA) 2+ H Urine Ketones Negative Urine Blood 2+ H Urine Nitrite Positive H Urine Bilirubin Negative Urine Urobilinogen 0.2 Ur Leukocyte Esterase 1+ H Urine Microscopic RBC 10-20 Urine Microscopic WBC 20-30 Ur Squamous Epith Cells 0-2 Urine Bacteria 2+ Urine Opiates Screen Negative Ur Oxycodone Screen Negative Urine Methadone Screen Negative Ur Barbiturates Screen Negative U Tricyclic Antidepress Negative Ur Phencyclidine Scrn Negative Ur Amphetamine Screen Positive H U Methamphetamines Scrn Positive H U Benzodiazepines Scrn Negative Urine Cocaine Screen Negative U Cannabinoids Screen Negative Acetone, Qual SARS CoV-2 RNA Rapid CIRILO 10/09/23 10/09/23 12:25 11:35 WBC 16.05 H RBC 4.17 L Hgb 12.9 Hct 39.5 MCV 94.7 MCH 30.9 MCHC 32.7 RDW Coeff of Tawny 12.1 Plt Count 220 Immature Gran % (Auto) 1.0 Neut % (Auto) 89.3 H Lymph % (Auto) 1.6 L [place] % (Auto) 7.6 Eos % (Auto) 0.1 Baso % (Auto) 0.4 Neut # (Auto) 14.3 H Lymph # (Auto) 0.3 L [place] # (Auto) 1.2 Eos # (Auto) 0.0 Baso # (Auto) 0.1 Immature Gran # (Auto) 0.2 Sodium 116.6 L* Potassium 4.32 Chloride 77.6 L Carbon Dioxide 30.8 H Anion Gap 12.52 BUN 22.2 H Creatinine 0.77 Estimated GFR (MDRD) 82.00 BUN/Creatinine Ratio 28.83 Glucose 738.7 H* Calcium 8.43 Magnesium Total Bilirubin 1.19 AST 27.2 ALT 18.3 Alkaline Phosphatase 212.1 H D Total Protein 7.14 Albumin 3.52 Globulin 3.62 Albumin/Globulin Ratio 0.97 Urine Color Urine Clarity Urine pH Ur Specific [place] Urine Protein Urine Glucose (UA) Urine Ketones Urine Blood Urine Nitrite Urine Bilirubin Urine Urobilinogen Ur Leukocyte Esterase Urine Microscopic RBC Urine Microscopic WBC Ur Squamous Epith Cells Urine Bacteria Urine Opiates Screen Ur Oxycodone Screen Urine Methadone Screen Ur Barbiturates Screen U Tricyclic Antidepress Ur Phencyclidine Scrn Ur Amphetamine Screen U Methamphetamines Scrn U Benzodiazepines Scrn Urine Cocaine Screen U Cannabinoids Screen Acetone, Qual None SARS CoV-2 RNA Rapid CIRILO Negative Additional Comments Additional Comments: I have independently reviewed and interpreted the labs/EKGs/imaging ordered during this hospital stay. I have reviewed outside records that are available in our EMR that pertain to medical stay including imaging/notes/labs from previous visits. Active Medications Active Medications: Medications Generic Name Dose Route Start Last Admin Trade Name Freq PRN Reason Stop Dose Admin Acetaminophen 650 mg 10/09/23 14:33 10/10/23 01:03 Acetaminophen 325 Mg Tablet PO 650 mg Q4H PRN Administration Pain Dicyclomine HCl 10 mg 10/09/23 21:00 10/10/23 08:48 Dicyclomine Hcl 10 Mg Capsule PO 10 mg BID ALLYSON Administration Enoxaparin Sodium 40 mg 10/10/23 09:00 10/10/23 08:48 Enoxaparin Sodium 40 Mg/0.4 Ml Syr SUBCUT 40 mg DAILY ALLYSON Administration CEFTRIAXONE/D5W 1 GM PREMIX 1 gm in 50 mls @ 100 mls/hr 10/09/23 13:30 10/10/23 08:48 Rocephin 1 Gm/50 Ml D5w IV 10/12/23 13:29 100 mls/hr DAILY ALLYSON Administration Sodium Chloride 1,000 mls @ 75 mls/hr 10/10/23 07:00 10/10/23 06:48 Sodium Chloride IV 75 mls/hr .[id number] ALLYSON Administration Insulin Glargine 20 unit 10/09/23 14:30 10/10/23 08:49 Insulin Glargine,Hum.Rec.Anlog 100 Units/Ml SUBCUT 20 unit DAILY ALLYSON Administration Insulin Human Regular 0 unit 10/09/23 13:29 10/09/23 20:21 Insulin Regular, Human 100 Unit/Ml (10ml) Vial SUBCUT 10 unit PRN PRN Administration Hyperglycemia Protocol Lisinopril 10 mg 10/10/23 09:00 10/10/23 08:48 Lisinopril 10 Mg Tablet PO 10 mg DAILY ALLYSON Administration Metoclopramide HCl 5 mg 10/10/23 06:41 Metoclopramide Hcl 10 Mg/2 Ml IVP Q6HR PRN vomiting Ondansetron HCl 4 mg 10/10/23 06:41 10/10/23 08:12 Ondansetron Hcl/Pf 4 Mg/2 Ml Sdv IVP 4 mg Q6H PRN Administration vomiting Pantoprazole Sodium 40 mg 10/09/23 14:30 10/10/23 05:44 Pantoprazole Sodium 40 Mg Tablet. PO 40 mg QDAC2 ALLYSON Administration Plan Plan: 1. Severe Symptomatic Hyponatremia - likely due to chronic meth use and water intoxication (admits to half a case of bottled water daily); Na 116 on admission - corrected sodium due to hyperglycemia 126 up to 134 today, fluid restriction 1500, stop fluids, osmolalities pending 2. Hyperglycemia in setting of uncontrolled DMT2 - Improving, resumed home regimen, accuchecks qid with ssi, ADA diet 3. UTI - leukocytosis noted with left shift, rocephin 1G Q24H, urine culture showing growth of gram negative rods - awaiting sensitivity 4. Hypertension - chronic, uncontrolled, resume home medications, will adjust if needed 5. GERD - chronic, resume home medications 6. Methamphetamine abuse - likely contributing to #1, discussed cessation and harmful effects DVT Prophylaxis: Lovenox Review Statement Review Statement: I have personally discussed and reviewed the patient's visit/currently labs/imaging/decision making with Dr. Gottlieb, my supervising attending. Greater that 50 minutes spent with patient, 50% of the time spent with this patient was devoted to counseling and coordination of care.
[2023-10-10] MEDS: HYDRALAZINE HCL IVP PRN (09:23)
--- NOTE | 2023-10-10 09:41 | CT ---
EXAM: CT BRAIN WITHOUT CONTRAST HISTORY: Headache TECHNIQUE: Multi-slice sequential. Coronal and sagital reformations were performed. COMPARISON: None FINDINGS: There is no acute intracranial hemorrhage, extraxial fluid collection, mass affect, or midlineshift.T he ventricles are normal in size.The mason-white matter interface is maintained.The basal cisterns are patent.The visualized paranasal sinuses are clear. Mastoid air cells are well aerated.The calvarium is unremarkable. :::::::::::::::::::::::::::::: IMPRESSION: No acute intracranial findings. :::::::::::::::::::::::::::::: All CT scans are performed using dose optimization techniques as appropriate to the performed exam an d include at least one of the following: Automated exposure control, adjustment of the mA and/or kV according t o size, and the use of iterative reconstruction technique.
[2023-10-10] MEDS: REGLAN IVP PRN (16:45)
--- NOTE | 2023-10-10 18:50 | DI ---
EXAM: CHEST ONE-VIEW HISTORY: Low grade fever and hypoxia COMPARISON: Chest radiograph series from 10/09/2023 FINDINGS: The cardiomediastinal silhouette is normal. The pulmonary vasculature is normal. No con solidating infiltrates are detected. No pneumothoraces or pleural effusions. IMPRESSION: 1. No acute cardiopulmonary disease. .
[2023-10-10 19:08] LABS: BLOOD UREA NITROGEN 16.2 mg/dL (7-17); CALCIUM 8.4 mg/dL (8.4-10.2); CARBON DIOXIDE 29.8 mmol/L (22-30.0); CHLORIDE 98.5 mmol/L (98-107); CREATININE 0.72 mg/dL (0.60-1.30); GLUCOSE 308.2 mg/dL (74-106); POTASSIUM 3.73 mmol/L (3.5-5.1)
[2023-10-11 05:35] LABS: HEMATOCRIT 42.9 % (37.0-47.0); HEMOGLOBIN 13.6 g/dl (12.0-16.0); MEAN CORPUSCULAR HEMOGLOBIN 30.2 pg (27.0-31.0); MEAN CORPUSCULAR HGB CONC 31.7 (31.8-35.4); MEAN CORPUSCULAR VOLUME 95.3 fl (81.0-99.0); PLATELET COUNT 308 10^3/uL (140-440); RDW COEFFICIENT OF VARIATION 12.7 % (11.6-14.8); WHITE BLOOD COUNT 11.38 K/ul (4.6-10.2)
[2023-10-11 05:49] LABS: ALANINE AMINOTRANSFERASE 13.3 U/L (0-35); ALBUMIN 3.1 g/dL (3.5-5.0); ALKALINE PHOSPHATASE 150.8 U/L (38-126); ASPARTATE AMINO TRANSFERASE 23.8 U/L (14-36); BILIRUBIN,TOTAL 0.71 mg/dL (0.2-1.3); BLOOD UREA NITROGEN 19.2 mg/dL (7-17); CALCIUM 8.66 mg/dL (8.4-10.2); CARBON DIOXIDE 33.1 mmol/L (22-30.0); CHLORIDE 98.4 mmol/L (98-107); CREATININE 0.75 mg/dL (0.60-1.30); GLUCOSE 268.6 mg/dL (74-106); MAGNESIUM 2.06 mg/dL (1.6-2.3); POTASSIUM 3.53 mmol/L (3.5-5.1); TOTAL PROTEIN 6.87 g/dL (6.3-8.2)
[2023-10-11 05:58] LABS: ANISOCYTOSIS NOT PRESENT (NOT PRESENT)
--- NOTE | 2023-10-11 09:12 | DCSUM ---
Admission Date Admission Date: 10/09/23 Discharge Date Discharge Date: 10/11/23 Admission Diagnosis Admission Diagnosis: 1. Severe Symptomatic Hyponatremia 2. Hyperglycemia in setting of uncontrolled DMT2 3. UTI 4. Hypertension 5. GERD 6. Methamphetamine abuse Discharge Diagnosis Discharge Diagnosis: 1. Severe Symptomatic Hyponatremia - Resolved 2. Hyperglycemia in setting of uncontrolled DMT2 - Improving 3. UTI - Improving 4. Hypertension - Chronic, stable 5. GERD - Chronic, stable 6. Methamphetamine abuse Hospital Provider Hospital Provider: MURPHY PATEL, [facility] [place] Primary Care Physician Primary Care Physician: RADU HERRERA APRN Summary of History and Physical Summary of History and Physical: 42 yo female with pmh of DMT2, hypertension, GERD, and methamphetamine use presented to the ER for abnormal labs. Patient saw her PCP yesterday for complaints of dizziness and body aches. She was Covid tested that was negative. CMP showed sodium in 120s and glucose in 500s. She was instructed to go to the ER once results were reviewed. Patient states that she is dizzy upon standing, sensitive to bright lights, and her muscles ache all over. Denies any vomiting, diarrhea, fever, urinary symptoms, or other complaints. States that she has been out of her medications over the last 2 months and has not "been able to afford them". Admits to meth use with last time being yesterday. Typically uses 2-3 times a week. Today, sodium was found to be 116, glucose >700, WBC 16, and UA noted for UTI. She was started on NS@250mL/hr x 1 liter and given 10 units of regular insulin. Admitted to Med/Surg Inpatient. Hospital Course Subjective: During stay, patient's sodium corrected within normal range with normal saline. Initially, contributed to chronic meth use. After discussing with nurses and patient, likely due to water intoxication. Patient reported drinking over half a case of bottled water daily. Sodium was 116 on admission with hyperglycemia present thus making corrected sodium initially to be 126. Corrected up to 134 y esterday. Body aches and dizziness improved. Osmolalities were ordered and still pending at this time. Fluid restriction was also in place. Yesterday patient became nauseated and vomited multiple times. Required multiple doses of zofran and reglan. Slept majority of the day. This am she was able to tolerated regular diabetic diet without difficulty. Feeling much better today. Hyperglycemia was controlled with sliding scale insulin and resumed home medication regimen. Patient was found to have UTI. C&S grew out E.Coli sensitive to rocephin in which she had been receiving 1G Q24H. D/c with remainder of keflex x 4 days. No changes were made to home medications. Prescriptions sent for all due to patient not taking any medications x 2 months. Encouraged follow-up with PCP and compliance with medication regimen. Appearance: Pleasant, No Apparent Distress and Alert HEENT: MMM and Supple CVS: No Murmur Abdomen: Soft Respiratory: No Dyspnea Extremities: No Edema Vital Signs: Most Recent Vital Signs Temperature 98.5 F 10/11/23 05:35 Temperature Source Temporal Artery Scan 10/11/23 05:35 Temperature Source Infrared 10/09/23 11:16 Pulse Rate 91 10/11/23 05:35 Respiratory Rate 18 10/11/23 08:00 Blood Pressure 114/74 10/11/23 05:35 Blood Pressure Mean 87 10/11/23 05:35 Blood Pressure Right Arm 139/90 10/09/23 13:31 Blood Pressure Location Left Arm 10/11/23 05:35 Blood Pressure Position Supine 10/11/23 05:35 O2 Sat by Pulse Oximetry 93 L 10/11/23 05:35 Oxygen Delivery Method Room Air 10/11/23 05:35 Fraction of Inspired Oxygen (FIO2) 94 10/10/23 01:40 Height 5 ft 2 in 10/09/23 13:31 Weight 142 lb 4.8 oz 10/09/23 13:31 Telemetry Type Remote Telemetry 10/11/23 07:00 Telemetry Monitoring Continues 10/11/23 07:00 Telemetry Heart Rate 85 10/11/23 07:00 EKG WV Interval 0.20 10/11/23 07:00 EKG QRS Interval 0.08 10/11/23 07:00 Telemetry Strip Reading NSR 10/11/23 07:00 Imaging: EXAM: CHEST ONE-VIEW HISTORY: Low grade fever and hypoxia COMPARISON: Chest radiograph series from 10/09/2023 FINDINGS: The cardiomediastinal silhouette is normal. The pulmonary vasculature is normal. No consolidating infiltrates are detected. No pneumothoraces or pleural effusions. IMPRESSION: 1. No acute cardiopulmonary disease. Lab Results Last 24 Hours: 10/11/23 10/10/23 05:28 18:50 WBC 11.38 H RBC 4.50 Hgb 13.6 Hct 42.9 MCV 95.3 MCH 30.2 MCHC 31.7 L RDW Coeff of Tawny 12.7 Plt Count 308 Neutrophils % (Manual) 72.0 Band Neutrophils % 2.0 Lymphocytes % (Manual) 10.0 Monocytes % (Manual) 8.0 Reactive Lymphocytes 8.0 H Anisocytosis Not present Sodium 137.0 136.0 Potassium 3.53 3.73 Chloride 98.4 98.5 Carbon Dioxide 33.1 H 29.8 Anion Gap 9.03 11.43 BUN 19.2 H 16.2 Creatinine 0.75 0.72 Estimated GFR (MDRD) 84.00 88.00 BUN/Creatinine Ratio 25.60 22.50 Glucose 268.6 H 308.2 H Calcium 8.66 8.40 Magnesium 2.06 Total Bilirubin 0.71 AST 23.8 ALT 13.3 Alkaline Phosphatase 150.8 H D Total Protein 6.87 Albumin 3.10 L Globulin 3.77 Albumin/Globulin Ratio 0.82 Discharge Instructions Discharge Planning: Discharge Planning > 40 minutes If patient is discharged with left ventricular systolic dysfunction: NA Discharged with a beta esperanza? [] If no, why not? [] Discharged with an cristian/arb? [] If no, why not? [] Diagnosis: Hyponatremia, UTI, Hyperglycemia Diet: Diabetic, Limit your water intake to a maximum of 1.5-2L daily Activity: as tolerated Follow-up with PCP this week. Medications: Keflex 500 mg take twice a day for 4 days (Start tomorrow) Refills to home medications have been sent to the pharmacy. Discharge Medications: Medications at Discharge (Home Meds & RX) insulin glargine 100 unit/mL subcutaneous solution (Lantus U-100 Insulin) 20 u nit (0.2 mL) subcut QDAY #10 mL 01/08/23 pen needle, diabetic 31 gauge x 5/16" (Easy Comfort Pen [place]) #100 ea 01/08/23 dapagliflozin propanediol 10 mg tablet (Farxiga) 10 mg PO BEDTIME #30 tabs 04/07/23 dicyclomine 10 mg capsule 10 mg PO BID #60 caps 04/07/23 lisinopril 10 mg tablet See Rx Instructions .Route .COMPLEX #30 tabs 04/07/23 mupirocin 2 % topical ointment 1 applic topical TID #22 grams 04/07/23 ondansetron HCl 8 mg tablet 8 mg PO Q8H PRN nausea and vomiting #30 tabs 04/07/23 pantoprazole 40 mg tablet,delayed release (Protonix) 40 mg PO QDAY 30 days #30 tabs 04/07/23 dicyclomine 20 mg tablet 20 mg PO QID PRN abdominal pain #20 tabs 07/31/23 pantoprazole 20 mg tablet,delayed release (Protonix) 20 mg PO DAILY #30 tabs 07/31/23 Discharge Plan Discharge Discharge Orders: Discharge Patient (ONCE); Ordered 10/11/23 Ordered By: ESA RANDLE Activity Restrictions/Additional Instructions: Diagnosis: Hyponatremia, UTI, Hyperglycemia Diet: Diabetic, Limit your water intake to a maximum of 1.5-2L daily Activity: as tolerated Follow-up with PCP this week. Medications: Keflex 500 mg take twice a day for 4 days (Start tomorrow) Refills to home medications have been sent to the pharmacy. Instructions: Urinary Tract Infection in Women (GEN), Hyponatremia (GEN), Type 2 Diabetes Management for Adults (GEN) Patient Disposition: HOME SELF-CARE Prescriptions: New cephalexin 500 mg capsule 500 mg PO BID 4 Days Qty: 8 0RF Continued insulin glargine [Lantus U-100 Insulin] 100 unit/mL solution 20 unit subcut QDAY Qty: 100 1RF pantoprazole [Protonix] 40 mg tablet,delayed release (DR/EC) 40 mg PO QDAY 30 Days Qty: 30 0RF lisinopril 10 mg tablet See Rx Instructions .ROUTE .COMPLEX Qty: 30 1RF Dose Instruction: TAKE ONE TABLET DAILY GENERIC FOR ZESTRIL Rx Instructions: TAKE ONE TABLET DAILY GENERIC FOR ZESTRIL dicyclomine 10 mg capsule 10 mg PO BID Qty: 60 0RF dapagliflozin propanediol 10 mg tablet 10 mg PO BEDTIME Qty: 30 1RF Discontinued pantoprazole [Protonix] 20 mg tablet,delayed release (DR/EC) 20 mg PO DAILY Qty: 30 0RF dicyclomine 20 mg tablet 20 mg PO QID PRN (Reason: abdominal pain) Qty: 20 0RF mupirocin 2 % ointment 1 applic topical TID Qty: 22 0RF ondansetron HCl 8 mg tablet 8 mg PO Q8H PRN (Reason: nausea and vomiting) Qty: 30 0RF No Action (DME) pen needle, diabetic [Easy Comfort Pen [place]] 31 gauge x 5/16" needle See Rx Instructions .ROUTE Qty: 100 3RF Rx Instructions: As directed Did you review [place] [employer]ATION SPECIALIST for ALL controlled substances?: No Discussed opioids are addictive and Narcan is available by prescription or from pharmacy.: No Condition: Stable Referrals: RADU HERRERA APRN [Primary Care Provider] - 10/16/23 1:45 pm
[2023-10-11 14:50] VITALS: BP 115/79; PULSE 88; RESP 20; TEMP 97.6
[2023-10-12 16:09] LABS: SERUM OSMOLALITY 285 mOsmol/kg (275-295)
[2023-10-13 02:08] LABS: OSMOLALITY,URINE 308 mOsmol/kg (.)
== END 2023-10-11 15:20 | disposition home or self-care (01) | DRG 641 ==
LOC: ED 11:05 → MEDSURG B 13:09
PROVIDERS: ADMIT Hospitalist; ATTEND Nurse Practitioner Family
DX: E11.65 Type 2 diabetes mellitus with hyperglycemia; F15.10 Other stimulant abuse, uncomplicated; N39.0 Urinary tract infection, site not specified; E87.1 Hypo-osmolality and hyponatremia; K21.9 Gastro-esophageal reflux disease without esophagitis; I10 Essential (primary) hypertension

== ENCOUNTER 2024-02-04 04:03 | Observation (INO) ==
[2024-02-04 04:24] VITALS: RESP 16
--- NOTE | 2024-02-04 04:36 | ED.PDOC ---
General ED Provider: Dr. CHINA JOSEPH MD Chief Complaint: Foot Pain/Injury Stated Complaint: Pt has h/o NIDDM and meth use and states she noticed a small white bump to bottom of right foot 4 days ago. This morning, noticed increased redness and swelling to 3rd toe and foot. Reports mild pain with walking. Denies fever, nausea or vomiting. Has had cough for past several days that is improving. Reports h/o prior staph infections and abscesses. Denies trauma to foot, possibility of FB or injecting anything into foot or toes. States her BSG chronically runs between 300 and 400. Time Seen by Provider: 02/04/24 04:22 Mode of Arrival: Walk-In Information Source: Patient Exam Limitations: No limitations Primary Care Provider: RADU HERRERA APRN Nursing and Triage Documentation Reviewed and Agree: Yes Does Patient Take Opioids?: No What is Opioid Naive?: *Opioid Naive implies the patient is not already taking opioids or not chronically receiving opioids on a daily basis. *PRN dosing is not "usually" associated with tolerance. *Patients are at higher risk of over-sedation and aspiration. What is Opioid Tolerant?: *Opioid Tolerance implies less than the expected response to an opioid. *Acquired tolerance is defined by the patient taking 60mg of oral morphine daily (or equianalgesic dose of another opioid) for 1 week or more. *Often associated with chronic pain. *May take more than usual dose to achieve desired pain control. Skin Complaint Exam Skin/Soft Tissue Complaint/Exam Onset/Duration: 4 days Symptoms Are: Still present and Worse Timing: Constant Initial Severity: Mild Current Severity: Moderate Character: Reports Redness, Swelling and Painful Aggravating: Reports Touch Alleviating: Reports None Associated Signs and Symptoms: Reports Drainage and Tenderness; Denies Fever Review of Systems Review Of Systems Constitutional: Denies Fever Respiratory: Reports Cough GI: Denies Nausea or Vomiting Skin: Reports Change in color [facility] Medical History Type 2 diabetes mellitus with hemoglobin A1c goal of less than 7.0% E11.9 - Type 2 diabetes mellitus without complications (ICD-10) Blood bacterial culture positive R78.81 - Bacteremia (ICD-10) Right thumb amputee Z89.011 - Acquired absence of right thumb (ICD-10) Hypertension I10 - Essential (primary) hypertension (ICD-10) Vaginal infection vaginal cyst lanced N76.0 - Acute vaginitis (ICD-10) Family History SISTER Diabetes Grandfather/Grandmother Diabetes FATHER Alcohol abuse Mother Hypertension CHF (congestive heart failure) Social History Smoking and tobacco status: Never smoker Alcohol intake: never Counseling given: No Substance use type: amphetamines and methamphetamine Kim/voodoo: NONE Household members: spouse and children Marital status: M Lives independently: Yes Number of children: 1 Number of grandchildren: 0 Highest education level completed: some college, no degree Current occupational status: employed Do you think of yourself as: straight/heterosexual Current gender identity: female Seatbelt use: always Helmet use: No Drives intoxicated or rides with intoxicated operator and truck driver: No Water heater temperature set < 120 degrees: Yes Working smoke detector in home: Yes Fire extinguisher in home: Yes Carbon monoxide detector in home: Yes Firearms in home: No Surgical History H/O elbow surgery Z98.890 - Other specified postprocedural states (ICD-10) History of hand surgery Z98.890 - Other specified postprocedural states (ICD-10) History of section Z98.891 - History of uterine scar from previous surgery (ICD-10) Female Reproductive History Menstrual Hx Hysterectomy: No Hx Tubal Ligation: No Physical Exam Physical Exam Appearance: Reports Well-appearing, No pain distress and Well-nourished Ill-appearing: None Pain Distress: None Eyes: Reports Conjunctiva clear ENT: Reports Nose normal Neck: Supple Respiratory: Reports Airway patent, Breath sounds clear, Breath sounds equal and Respirations nonlabored Cardiovascular: Reports RRR and Pulses normal (Easily palpable DP pulse to right foot with brisk cap refill to all toes including 3rd toe. ) GI/: Reports Soft and Nontender Musculoskeletal: Reports Normal strength Skin: Reports Other (One faint lymphatic streak from dorsum of foot onto billy. ); Denies Normal color (Right foot has diffuse swelling to dorsum of foot with erythema to distal dorsal aspect of foot. Purplish erythema noted to 3rd toe. Skin is splint between 2nd and 3rd toes and there is a denuded blister to plantar surface of foot between 2nd and 3rd toe. ) Neurological: Reports Sensation intact (Normal sensation to toes. ) Psychiatric: Reports Mood appropriate Interpretation Radiology Interpretation Radiology Interpretation By: ED Physician Radiology Results: Negative Physician Notification Case Discussed Physician Notified: JASMINE Watson Time of Notification: 05:53 Admit/Transition Orders Entered by ED Provider: Yes Admit To: Observation Course Course 02/04/24 04:55 02/04/24 04:55 Orders, Labs, Meds: Lab Review 02/04/24 02/04/24 02/04/24 04:55 04:59 05:17 WBC 11.87 H RBC 4.38 Hgb 13.3 Hct 41.1 MCV 93.8 MCH 30.4 MCHC 32.4 RDW Coeff of Tawny 12.1 Plt Count 347 Immature Gran % (Auto) 0.3 Neut % (Auto) 81.0 H Lymph % (Auto) 12.9 [place] % (Auto) 5.3 Eos % (Auto) 0.3 Baso % (Auto) 0.2 Neut # (Auto) 9.6 H Lymph # (Auto) 1.5 [place] # (Auto) 0.6 Eos # (Auto) 0.0 Baso # (Auto) 0.0 Immature Gran # (Auto) 0.0 VBG pH 7.40 VBG pCO2 49 VBG pO2 25 L VBG HCO3 30.4 H VBG O2 Saturation 45.3 L Sodium 121.5 L Potassium 4.17 Chloride 82.6 L Carbon Dioxide 30.1 H Anion Gap 12.97 BUN 6.6 L Creatinine 0.71 Estimated GFR (MDRD) 89.00 BUN/Creatinine Ratio 9.29 Glucose 661.5 H* Lactic Acid 2.97 H Calcium 8.92 Serum , Qual Negative Urine Color Yellow Urine Clarity Clear Urine pH 6.5 Ur Specific [place] <=1.005 Urine Protein Negative Urine Glucose (UA) 3+ H Urine Ketones Negative Urine Blood Trace-intact H Urine Nitrite Positive H Urine Bilirubin Negative Urine Urobilinogen 0.2 Ur Leukocyte Esterase Trace H Urine Microscopic RBC 5-10 Urine Microscopic WBC 20-30 Ur Squamous Epith Cells 2-5 Urine Bacteria 2+ SARS CoV-2 RNA Rapid CIRILO 02/04/24 05:36 WBC RBC Hgb Hct MCV MCH MCHC RDW Coeff of Tawny Plt Count Immature Gran % (Auto) Neut % (Auto) Lymph % (Auto) [place] % (Auto) Eos % (Auto) Baso % (Auto) Neut # (Auto) Lymph # (Auto) [place] # (Auto) Eos # (Auto) Baso # (Auto) Immature Gran # (Auto) VBG pH VBG pCO2 VBG pO2 VBG HCO3 VBG O2 Saturation Sodium Potassium Chloride Carbon Dioxide Anion Gap BUN Creatinine Estimated GFR (MDRD) BUN/Creatinine Ratio Glucose Lactic Acid Calcium Serum , Qual Urine Color Urine Clarity Urine pH Ur Specific [place] Urine Protein Urine Glucose (UA) Urine Ketones Urine Blood Urine Nitrite Urine Bilirubin Urine Urobilinogen Ur Leukocyte Esterase Urine Microscopic RBC Urine Microscopic WBC Ur Squamous Epith Cells Urine Bacteria SARS CoV-2 RNA Rapid CIRILO Negative Orders Category Date Time Status IV [ED IV/MEDIPORT/POWERPORT] .ONCE EMERGENCY 02/04/24 04:36 Active BMP [BASIC METABOLIC PANEL] Stat LAB 02/04/24 04:55 Completed CBC W/ AUTO DIFF Stat LAB 02/04/24 04:55 Completed COVID [SARS COV-2 RNA RAPID CIRILO] Stat LAB 02/04/24 05:36 Completed LACTIC ACID Stat LAB 02/04/24 04:55 Completed SERUM Stat LAB 02/04/24 04:55 Completed URINALYSIS C & S IF INDICATED Stat LAB 02/04/24 05:17 Completed URINE CULTURE Stat LAB 02/04/24 05:17 Received VBG [VENOUS BLOOD GAS] Stat LAB 02/04/24 04:59 Completed WOUND CULTURE Stat LAB 02/04/24 04:30 Received 0.9 % Sodium Chloride [Saline Flush] Meds 02/04/24 04:36 Active 1 syr IVF PRN PRN Ceftriaxone 1 gm Vial [Rocephin 1 gm Vial] Meds 02/04/24 05:42 Discontinued 1 gm IVP ONCE ONE Insulin Regular, Human [Humulin R (10Ml)] Meds 02/04/24 05:44 Discontinued 12 unit SUBCUT ONCE ONE Sodium Chloride 0.9% [Sodium Chloride] 1,000 ml Meds 02/04/24 04:37 Discontinued IV BOLUS Vancomycin Vial (If ) 1 gm Meds 02/04/24 05:42 Discontinued 0.9 % Sodium Chloride [Sodium Chloride] 250 ml IV ONCE FOOT, RIGHT 3 VIEWS Stat RADS 02/04/24 04:38 Completed Medications Generic Name Dose Route Start Last Admin Trade Name Freq PRN Reason Stop Dose Admin Sodium Chloride 1 syr 02/04/24 04:36 0.9% Sodium Chloride 10 Ml Disp.Syrin IVF PRN PRN To flush IV Discontinued Medications Generic Name Dose Route Start Last Admin Trade Name Freq PRN Reason Stop Dose Admin Ceftriaxone Sodium 1 gm 02/04/24 05:42 02/04/24 05:56 Ceftriaxone 1 Gm Vial IVP 02/04/24 05:43 1 gm ONCE ONE Administration Sodium Chloride 1,000 mls @ 1,000 mls/hr 02/04/24 04:37 02/04/24 05:27 Sodium Chloride IV 02/04/24 05:36 1,000 mls/hr BOLUS ONE Administration Vancomycin HCl 1 gm/ Sodium 250 mls @ 250 mls/hr 02/04/24 05:42 02/04/24 05:57 Chloride IV 02/04/24 06:41 250 mls/hr ONCE ONE Administration Insulin Human Regular 12 unit 02/04/24 05:44 02/04/24 05:58 Insulin Regular, Human 100 Unit/Ml (10ml) Vial SUBCUT 02/04/24 05:45 12 unit ONCE ONE Administration Vital Signs: Temp Pulse Resp BP Pulse Ox 02/04/24 04:04 97.2 F L 106 H 16 135/91 H 98 Discharge Plan Discharge Patient Disposition: PLACED OBSERVATION Discharge Problem: Hyperosmolar hyperglycemic state (HHS), Cellulitis in diabetic foot Did you review [place] SLIP FILLER for ALL controlled substances?: Not Applicable ED Provider: CHINA JOSEPH Condition: Stable Physician Progress Note: Bedside glucose >500 so labs ordered. Reviewed labs with patient : leukocytosis and elevated lactate with marked hyperglycemia. no evidence of DKA with normal anion gap, normal pH and negative urine ketones. Her corrected sodium is 130- 135, rest of electrolytes and renal function normal. I interpreted her xray and see no obvious evidence of FB, evidence of osteomyelitis or acute bony abnormality. She was given a liter of normal saline here. Clinical picture c/w HHS and right foot cellulitis/diabetic foot infection. She has normal pulses and cap refill in that foot and toe. Wound culture sent. Ordered IV rocephin and vancomycin in ED. She reports non compliance with her insulin and likely has pretty chronically elevated blood sugars, so will defer insulin drip at this time and give SQ insulin in addition to fluids. I discussed with Ruth Sam, hospitalist PA and she agrees with admission and current plan. Pt also agrees with admission at this time.
[2024-02-04 05:02] LABS: BASOPHILS % (AUTO) 0.2 % (0.0-3.0); EOSINOPHILS % (AUTO) 0.3 % (0.0-7.0); HEMATOCRIT 41.1 % (37.0-47.0); HEMOGLOBIN 13.3 g/dl (12.0-16.0); IMMATURE GRANULOCYTE % (AUTO) 0.3 % (0.0-5.0); LYMPHOCYTES # (AUTO) 1.5 K/uL (0.60-3.4); LYMPHOCYTES % (AUTO) 12.9 (10.0-50.0); MEAN CORPUSCULAR HEMOGLOBIN 30.4 pg (27.0-31.0); MEAN CORPUSCULAR HGB CONC 32.4 (31.8-35.4); MEAN CORPUSCULAR VOLUME 93.8 fl (81.0-99.0); MONOCYTES # (AUTO) 0.6 K/uL (0.4-2.0); MONOCYTES % (AUTO) 5.3 (0-10); NEUTROPHILS # (AUTO) 9.6 K/ul (2.0-6.9); PLATELET COUNT 347 10^3/uL (140-440); RDW COEFFICIENT OF VARIATION 12.1 % (11.6-14.8); RED BLOOD COUNT 4.38 10^6/ul (4.20-5.40); WHITE BLOOD COUNT 11.87 K/ul (4.6-10.2)
[2024-02-04 05:06] LABS: VBG HCO3 30.4 (22-26); VBG OXYGEN SATURATION 45.3 (60-80); VBG PH 7.4 (7.30-7.40)
[2024-02-04 05:12] LABS: SERUM PREGNANCY NEGATIVE (NEGATIVE)
[2024-02-04 05:14] LABS: BLOOD UREA NITROGEN 6.6 mg/dL (7-17); CALCIUM 8.92 mg/dL (8.4-10.2); CARBON DIOXIDE 30.1 mmol/L (22-30.0); CHLORIDE 82.6 mmol/L (98-107); CREATININE 0.71 mg/dL (0.60-1.30); POTASSIUM 4.17 mmol/L (3.5-5.1); SODIUM 121.5 mmol/L (134.5-145)
[2024-02-04 05:22] LABS: GLUCOSE 661.5 mg/dL (74-106)
[2024-02-04] MEDS: SODIUM CHLORIDE 1,000 ML IV ONE ×2 (05:27→09:37)
[2024-02-04 05:28] LABS: BILIRUBIN,URINE Negative (NEGATIVE); CLARITY,URINE Clear (CLEAR); COLOR,URINE Yellow (YELLOW); KETONES,URINE Negative (NEGATIVE); LEUKOCYTE ESTERASE ,URINE Trace (NEGATIVE); NITRITE,URINE Positive (NEGATIVE); PH,URINE 6.5 (5-9); PROTEIN,URINE Negative (NEGATIVE); URINE, BLOOD Trace-intact (NEGATIVE); UROBILINOGEN,URINE 0.2 (0.2)
[2024-02-04 05:31] LABS: GLUCOSE, URINE (UA) 3+ (NEGATIVE)
[2024-02-04 05:35] LABS: BACTERIA,URINE 2+ (NOT PRESENT); URINE WBC, MICROSCOPIC 20-30 (0-2)
[2024-02-04 05:51] LABS: SARS COV-2 RNA RAPID NAAT NEGATIVE (NEGATIVE)
[2024-02-04] MEDS: ROCEPHIN 1 GM VIAL IVP ONE (05:56)
[2024-02-04] MEDS: VANCOMYCIN VIAL (IF PREGNANT) 1 GM in SODIUM CHLORIDE 250 ML IV ONE (05:57)
[2024-02-04] MEDS: HUMULIN R (10ML) SUBCUT ONE (05:58)
--- NOTE | 2024-02-04 07:02 | DI ---
EXAM: RIGHT FOOT, THREE VIEWS HISTORY: Swelling and pain COMPARISON: None. IMPRESSION: The visualized osseous structures appear intact. Anatomic alignment appears within norm al limits. There is no evidence of fracture or dislocation. Diffuse soft tissue swelling throughout the foot. This involves the lower leg and ankle. This extends along the dorsal aspect of the midfoot and metat arsals. This appears to extend through the toes. There is a curvilinear wire like metallic density foreign body within the soft tissues inferior to the proximal aspect of the second and third toes. No acute osseous abnormality.
[2024-02-04 07:55] VITALS: BMI 25.2
[2024-02-04] MEDS ORDERED: MYXREDLIN 100 UNIT/100 ML BAG 100 UNIT/100 ML PLAST..BAG IV SCH (09:30)
[2024-02-04] MEDS ORDERED: SODIUM CHLORIDE 0.9%-KCL 20 MEQ 1,000 ML IV SCH (09:30)
[2024-02-04 09:37] LABS: AMPHETAMINE SCREEN,URINE POSITIVE (NEGATIVE); METHAMPHETAMINES SCREEN,URINE POSITIVE (NEGATIVE)
[2024-02-04 09:38] LABS: BARBITURATE SCREEN,URINE NEGATIVE (NEGATIVE); BENZODIAZEPINES SCREEN,URINE NEGATIVE (NEGATIVE); CANNABINOID SCREEN,URINE NEGATIVE (NEGATIVE); COCAIN SCREEN,URINE NEGATIVE (NEGATIVE); METHADONE URINE SCREEN NEGATIVE (NEGATIVE); OPIATE SCREEN,URINE NEGATIVE (NEGATIVE); OXYCODONE URINE SCREEN NEGATIVE (NEGATIVE); PHENCYCLIDINE SCREEN,URINE NEGATIVE (NEGATIVE); TRICYCLIC ANTIDEPRESSANTS URIN NEGATIVE (NEGATIVE)
--- NOTE | 2024-02-04 09:45 | PCM.SS ---
Provider Provider: ARMANDO BACON PA-C, [facility] Admission Date Admission Date: 02/04/24 Discharge Date Discharge Date: 02/04/24 Primary Care Physician Primary Care Physician: RADU HERRERA APRN Chief Complaint Reason For Visit: Foot Problem History of Present Illness History of Present Illness: Admitted 02/04/24 05:44, this 43 year old /WHITE/F with pmhx of uncontrolled diabetes and hx of meth use who presents to the ER with worsening right foot redness and swelling. Patient states she thought she had a callus on the bottom of her foot a couple days ago and put a "corn patch" on it. Then she woke up with it being red and swollen. Denies much pain but states she does not have neuropathy. She doesn't take anything currently for her diabetes, states she had the medical card but lost it. She used to be on metformin, trulicity, and lisinopril at one time. She was noted in ER to have mildly elevated WBC count, elevated lactate, glucose of 661. Bicarb and ph normal. UA positive for nitrates and trace leuks. She was given 12U of insulin, 1L bolus, rocephin and vanc. X ray performed in ER. Admitted to med surg for diabetic foot wound/cellulitis. Once evaluated on the floor x ray was reviewed and noted to have a FB in area of edema/infection. Discussed with patient concern for the FB leading to infection and likely needs to come out. She has no preference on where to transfer to. Spoke with Dr. Gaona, fish cleaner at [facility], who is graciously willing to consult on patient for likely removal of FB this evening or tomorrow. He requests UDS which is pending. Will make patient NPO, although she has already had breakfast. Spoke with Dr. Billy, hospitalist, who accepts patient. Requests another bolus and start insulin drip. Will start NS with 20+K following NS bolus with insulin drip. [facility] Medical History Type 2 diabetes mellitus with hemoglobin A1c goal of less than 7.0% E11.9 - Type 2 diabetes mellitus without complications (ICD-10) Blood bacterial culture positive R78.81 - Bacteremia (ICD-10) Right thumb amputee Z89.011 - Acquired absence of right thumb (ICD-10) Hypertension I10 - Essential (primary) hypertension (ICD-10) Vaginal infection vaginal cyst lanced N76.0 - Acute vaginitis (ICD-10) Surgical History H/O elbow surgery Z98.890 - Other specified postprocedural states (ICD-10) History of hand surgery Z98.890 - Other specified postprocedural states (ICD-10) History of section Z98.891 - History of uterine scar from previous surgery (ICD-10) Family History SISTER Diabetes Grandfather/Grandmother Diabetes FATHER Alcohol abuse Mother Hypertension CHF (congestive heart failure) Social History Smoking and tobacco status: Never smoker Alcohol intake: never Counseling given: No Substance use type: amphetamines and methamphetamine Kim/confucianism: NONE Household members: spouse and children Marital status: M Lives independently: Yes Number of children: 1 Number of grandchildren: 0 Highest education level completed: some college, no degree Current occupational status: employed Do you think of yourself as: straight/heterosexual Current gender identity: female Seatbelt use: always Helmet use: No Drives intoxicated or rides with intoxicated cdl team truck driver: No Water heater temperature set < 120 degrees: Yes Working smoke detector in home: Yes Fire extinguisher in home: Yes Carbon monoxide detector in home: Yes Firearms in home: No Medications Mecications: Medications at Discharge (Home Meds & RX) pen needle, diabetic 31 gauge x 5/16" (Easy Comfort Pen [place]) #100 ea 10/13/23 Allergies Allergies Allergy/AdvReac Type Severity Reaction Status Date / Time sunflower seed AdvReac Severe Difficulty Verified 02/04/24 04:25 Breathing peanut AdvReac Anaphylaxis Verified 02/04/24 04:25 Review of Systems Constitutional: Denies Fever, Fatigue or Weakness Head: Reports Normocephalic and Atraumatic Cardiovascular: Denies Chest pain, Chest Pressure or Edema Respiratory: Denies Shortness of air Gastrointestinal: Denies Nausea, Vomiting, Diarrhea, Abdominal pain or Melena Genitourinary: Denies Dysuria or Frequency Dermatologic: Reports Skin Changes (+erythema and swelling of right foot ) Physical Examination Appearance: Positive Well-appearing, Well-nourished, No Apparent Distress and Alert and Oriented x3 Head: Positive Normocephalic and Atraumatic Heart: Positive RRR Respiratory: Positive Breath Sounds Clear, Bilaterally and Respirations Nonlabored; Negative Crackles, Rhonchi or Wheezes GI/: Positive Soft, Nontender, Bowel sounds normal and No Distention Extremities: Positive Other (+right foot - soft tissue swelling noted. Erythema distally and extending to mid dorsal foot. Callus noted on plantar distal foot. Skin between 2nd and 3rd digit appears "split" open with minimal drainage. 2nd and 3rd digits are edematous. ) Neurological: Positive Cranial nerves intact, Alert and Oriented Psychiatric: Positive Normal Judgement, Normal Insight, Affect Appropriate and Mood Appropriate Vital Signs (Last 4 Hours) Vital Signs Last 4 Hours: Vital Signs: Last 4 Hours 02/04/24 06:03 02/04/24 06:31 02/04/24 06:31 Temperature 97.5 F L Temperature Source Temporal Artery Scan Pulse Rate 105 H 108 H Respiratory Rate 16 16 18 Blood Pressure 129/85 Blood Pressure Mean Blood Pressure Left Arm 143/91 Blood Pressure Location Blood Pressure Position Supine O2 Sat by Pulse Oximetry 96 97 Oxygen Delivery Method Room Air Room Air Height 5 ft 2 in Weight 62.7 kg Telemetry Type Telemetry Monitoring Telemetry Heart Rate EKG [place] Interval EKG QRS Interval Telemetry Strip Reading 02/04/24 06:35 02/04/24 07:00 02/04/24 07:00 Temperature 97.5 F L Temperature Source Temporal Artery Scan Pulse Rate 108 H Respiratory Rate 16 Blood Pressure 143/91 H Blood Pressure Mean 108 Blood Pressure Left Arm Blood Pressure Location Left Arm Blood Pressure Position Supine O2 Sat by Pulse Oximetry 97 Oxygen Delivery Method Room Air Room Air Height Weight Telemetry Type Remote Telemetry Telemetry Monitoring Started Telemetry Heart Rate 100 EKG [place] Interval 0.20 EKG QRS Interval 0.08 Telemetry Strip Reading SB 02/04/24 08:00 02/04/24 09:00 Temperature Temperature Source Pulse Rate Respiratory Rate Blood Pressure Blood Pressure Mean Blood Pressure Left Arm Blood Pressure Location Blood Pressure Position O2 Sat by Pulse Oximetry Oxygen Delivery Method Room Air Room Air Height Weight Telemetry Type Telemetry Monitoring Telemetry Heart Rate EKG [place] Interval EKG QRS Interval Telemetry Strip Reading Labs This Visit Labs This Visit: Labs This Visit 02/04/24 02/04/24 02/04/24 04:55 04:59 05:17 WBC 11.87 H RBC 4.38 Hgb 13.3 Hct 41.1 MCV 93.8 MCH 30.4 MCHC 32.4 RDW Coeff of [place]wn[place] 12.1 Plt Count 347 Immature Gran % (Auto) 0.3 Neut % (Auto) 81.0 H Lymph % (Auto) 12.9 [place] % (Auto) 5.3 Eos % (Auto) 0.3 Baso % (Auto) 0.2 Neut # (Auto) 9.6 H Lymph # (Auto) 1.5 [place] # (Auto) 0.6 Eos # (Auto) 0.0 Baso # (Auto) 0.0 Immature Gran # (Auto) 0.0 VBG pH 7.40 VBG pCO2 49 VBG pO2 25 L VBG HCO3 30.4 H VBG O2 Saturation 45.3 L Sodium 121.5 L Potassium 4.17 Chloride 82.6 L Carbon Dioxide 30.1 H Anion Gap 12.97 BUN 6.6 L Creatinine 0.71 Estimated GFR (MDRD) 89.00 BUN/Creatinine Ratio 9.29 Glucose 661.5 H* Lactic Acid 2.97 H Calcium 8.92 Serum , Qual Negative Urine Color Yellow Urine Clarity Clear Urine pH 6.5 Ur Specific [place] <=1.005 Urine Protein Negative Urine Glucose (UA) 3+ H Urine Ketones Negative Urine Blood Trace-intact H Urine Nitrite Positive H Urine Bilirubin Negative Urine Urobilinogen 0.2 Ur Leukocyte Esterase Trace H Urine Microscopic RBC 5-10 Urine Microscopic WBC 20-30 Ur Squamous Epith Cells 2-5 Urine Bacteria 2+ SARS CoV-2 RNA Rapid CIRILO 02/04/24 05:36 WBC RBC Hgb Hct MCV MCH MCHC RDW Coeff of [place] Plt Count Immature Gran % (Auto) Neut % (Auto) Lymph % (Auto) [place] % (Auto) Eos % (Auto) Baso % (Auto) Neut # (Auto) Lymph # (Auto) [place] # (Auto) Eos # (Auto) Baso # (Auto) Immature Gran # (Auto) VBG pH VBG pCO2 VBG pO2 VBG HCO3 VBG O2 Saturation Sodium Potassium Chloride Carbon Dioxide Anion Gap BUN Creatinine Estimated GFR (MDRD) BUN/Creatinine Ratio Glucose Lactic Acid Calcium Serum , Qual Urine Color Urine Clarity Urine pH Ur Specific [place] Urine Protein Urine Glucose (UA) Urine Ketones Urine Blood Urine Nitrite Urine Bilirubin Urine Urobilinogen Ur Leukocyte Esterase Urine Microscopic RBC Urine Microscopic WBC Ur Squamous Epith Cells Urine Bacteria SARS CoV-2 RNA Rapid CIRILO Negative Imaging Imaging: EXAM: RIGHT FOOT, THREE VIEWS HISTORY: Swelling and pain COMPARISON: None. IMPRESSION: The visualized osseous structures appear intact. Anatomic alignment appears within normal limits. There is no evidence of fracture or dislocation. Diffuse soft tissue swelling throughout the foot. This involves the lower leg and ankle. This extends along the dorsal aspect of the midfoot and metatarsals. This appears to extend through the toes. There is a curvilinear wire like metallic density foreign body within the soft tissues inferior to the proximal aspect of the second and third toes. No acute osseous abnormality. Review Review Statement: I have independently reviewed and interpreted the labs/EKGs/imaging that were ordered by the ER provider. I have reviewed all outside records that are available currently in our EMR including imaging/notes/labs from previous visits. Plan Reccomendations/Plan: 1. Cellulitis of right foot in setting of uncontrolled diabetes - X ray is showing a small metallic appearing FB in area of edema. Consulted with Dr. Gaona, podiatry at [facility], who reviewed images and recommends transfer. Rocephin and vanc given this morning in ER. No need for CT at this time per Dr. Gaoan. Will make patient NPO. 2. Sepsis in setting of cellulitis - Abx given this morning, another bolus ordered to meet 30 ml/kg. Repeat lactic. Blood cultures. 3. Uncontrolled diabetes with hyperglycemia - Not in DKA. Asymptomatic. Last a1c in 10/16 was >12. Pt currently not on any orals or insulin due to insurance. Pt states she is typically in 400s. Hospitalist at [facility] requests to start insulin drip in preparation for possible OR later. Hourly accuchecks. 4. Suspect UTI - urine culture pending, pt given rocephin Once evaluated on the floor x ray was reviewed and noted to have a FB in area of edema/infection. Discussed with patient concern for the FB leading to infection and likely needs to come out. She has no preference on where to transfer to. Spoke with Dr. Gaona, fish cleaner at [facility], who is graciously willing to consult on patient for likely removal of FB this evening or tomorrow. He requests UDS which is pending. Will make patient NPO, although she has already had breakfast. Spoke with Dr. Billy, hospitalist, who accepts patient. Requests another bolus and start insulin drip. Will start NS with 20+K following NS bolus with insulin drip. Update: 1245: Patient's glucose has been consistently 170s-180s without starting the insulin drip. The transfer line at [facility] was updated on this as she likely does not need ICU, they reached out to Dr. Billy. Bed status updated to [facility]. Patient will go to room [address] Gaona updated on patient's UDS positive for meth. Discharge diagnoses: 1. Cellulitis of right foot with foreign body in setting of uncontrolled diabetes 2. Sepsis in setting of cellulitis 3. Uncontrolled diabetes with hyperglycemia. 4. Suspect UTI Additional Planning: Case discussed with ED Physician, Dr. Andrade. DVT Prophylaxis: None Advanced Care Plannin minutes spent discussing advance care planning. Admit to: Obs Discussed Plan of Care with Dr. Joshua Gottlieb. Review With Patient Reviewed with Patient and Family: Patient and family have been counseled on condition and care plan and have no immediate questions. I have personally discussed and reviewed the patient's visit/current labs/imaging/decision making with Dr. Joshua Gottlieb, my supervising attending. Total number of minutes spent with patient [85] min. More than 50% of the time spent with this patient was devoted to counseling and coordination of care. Time of Admission:02/04/24 05:44 Time of Discharge: 02/04/24 1000 Discharge Plan Discharge Discharge Orders: Discharge Patient (ONCE); Ordered 02/04/24 Ordered By: ARMANDO BACON Activity Restrictions/Additional Instructions: Transfer to [facility], Dr. Billy, hospitalist is accepting Patient Disposition: TSF SHORT-TRM HOSP Did you review [place] [employer] for ALL controlled substances?: Not Applicable Discussed opioids are addictive and Narcan is available by prescription or from pharmacy.: No Condition: Stable
[2024-02-04 10:20] VITALS: BP 124/80; PULSE 98; TEMP 97.4
[2024-02-04] MEDS: HUMALOG (10 ML VIAL) SUBCUT PRN (11:58)
[2024-02-04] MEDS: SODIUM CHLORIDE 1,000 ML IV SCH (13:52)
== END 2024-02-04 14:10 | disposition short-term general hospital (02) ==
LOC: MEDSURG B 04:03 → ED 04:03 → MEDSURG B 06:14
PROVIDERS: ADMIT Hospitalist; ATTEND Physician Assistant
DX: L97.519 Non-pressure chronic ulcer of other part of right foot with unspecified severity; S90.851A Superficial foreign body, right foot, initial encounter; Z75.1 Person awaiting admission to adequate facility elsewhere; L03.115 Cellulitis of right lower limb; E11.621 Type 2 diabetes mellitus with foot ulcer; Z91.199 Patient's noncompliance with other medical treatment and regimen due to unspecified reason; R82.90 Unspecified abnormal findings in urine; F15.10 Other stimulant abuse, uncomplicated; Z99.89 Dependence on other enabling machines and devices; Z20.822 Contact with and (suspected) exposure to COVID-19; E11.00 Type 2 diabetes mellitus with hyperosmolarity without nonketotic hyperglycemic-hyperosmolar coma (NKHHC); E11.65 Type 2 diabetes mellitus with hyperglycemia; A41.9 Sepsis, unspecified organism